=== PATIENT | female | born 1955 | race Caucasian/White ===

== ENCOUNTER 2016-04-08 21:44 | Inpatient (IN) | payer OTHER, MEDICARE ==
[~2016-04-08] VITALS: Ht 165.1 cm; Wt 106.6 kg
[~2016-04-08 21:44] MED LIST: AMOX/CLAV POT 81 TAB PO; AMOXICILLIN250 M3 PO; AUGMENTIN 875 M1 TAB PO; AUGMENTIN 875-1 EACH PO; AUGMENTIN 875875 MG PO; BACTRIM DS 8001 TAB PO; BACTRIM DS TAB1 EACH PO; BUPROPION HYDR300 MG PO; BUPROPION XL150 MG PO; CALCIUM + D 6001 TAB PO; DILAUDID4 M1 PO; FISH OIL CONC1000 M1 PO; FLUTICASONE PRO16 GM; GABAPENTIN300 M2 PO; GABAPENTIN300 MG PO; HYDROMORPHONE HC4 M1 PO; KEFLEX500 M1 PO; LAMICTAL 100MG100 MG PO; LAMICTAL100 M2 PO; LORAZEPAM0.5 MG PO; LYRICA150 M1 PO; LYRICA150 MG PO; LYRICA50 MG PO; MELATONIN5 M7 PO; MONTELUKAST SOD10 M1; MOTRIN 400 MG400 MG PO; MS CONTIN15 M1 PO; MULTIPLE VITAM1 EAC2 PO; NEURONTIN300 MG PO; OXACILLIN IV; OXYCODONE5 M1 PO; OXYCODONE5 MG PO; OXYCONTIN20 MG PO; PERCOCET 325 MG1 TA2 PO; PROBIOTIC1 EACH PO; RISPERIDONE 1 MG1 MG PO; RISPERIDONE1 M1 PO; RISPERIDONE2 MG PO; TRAMADOL HCL50 M1 PO; TYLENOL TAB 32325 MG PO; ZOSYN 4 GM/100100 ML IV
--- NOTE | 2016-04-08 21:54 | NUR ---
TRIAGE: PT TO ER C/C WORSENING PAIN AND FEVERS R/T ULCERS ON L FOOT. STATES DR TSE HAS BEEN OUT OF THE OFFICE SO HAS NOT BEEN ABLE TO SEE HIM IN 2 WEEKS. PT AFEBRILE AT TRIAGE. TAKES DILAUDID BID FOR PAIN.
--- NOTE | 2016-04-08 21:55 | NUR ---
Informed waiting has been performed.
--- NOTE | 2016-04-08 22:12 | ED UPPER/LOWER EXTREMITY COMPL ---
History of Present Illness General Chief Complaint: General Adult Stated Complaint: ULCER ON LEFT FOOT, FEVER Source: patient Exam Limitations: no limitations Vital Signs & Intake/Output Vital Signs & Intake/Output Vital Signs Date Time Temp Pulse Resp B/P Pulse O2 O2 Flow FiO2 Ox Delivery Rate 04/09 0157 101.1 110 20 100/62 94 Room Air 04/08 2152 99.6 125 20 112/76 98 Room Air ED Intake and Output 04/09 0000 04/08 1200 Intake Total Output Total Balance Patient 235 lb Weight Allergies Coded Allergies: No Known Drug Allergies (UNKNOWN 04/08/16) Reconcile Medications Bupropion HCl (Bupropion XL) 150 MG TAB.ER.24H 3 TAB PO DAILY MENTAL HEALTH ( Reported) Gabapentin 300 MG CAPSULE 1 CAP PO BID NERVE PAIN (Reported) Hydromorphone HCl 2 MG TABLET 1 TAB PO BID PRN PAIN (Reported) Lamotrigine (Lamictal) 100 MG TABLET 2 TAB PO AT BEDTIME MENTAL HEALTH ( Reported) Lamotrigine (Lamictal) 100 MG TABLET 1 TAB PO QAM MENTAL HEALTH (Reported) Multivitamin (Multiple Vitamins) 1 EACH TABLET 1 TAB PO DAILY SUPPLEMENT ( Reported) OMEGA-3 FATTY ACIDS (Fish Oil Concentrate) 1,000 MG CAPSULE 1 SGL PO DAILY SUPPLEMENT (Reported) Pregabalin (Lyrica) 150 MG CAPSULE 1 CAP PO BID NERVE PAIN (Reported) Risperidone 1 MG TABLET 1 TAB PO QPM SLEEPING (Reported) Triage Note: TRIAGE: PT TO ER C/C WORSENING PAIN AND FEVERS R/T ULCERS ON L FOOT. STATES DR TSE HAS BEEN OUT OF THE OFFICE SO HAS NOT BEEN ABLE TO SEE HIM IN 2 WEEKS. PT AFEBRILE AT TRIAGE. TAKES DILAUDID BID FOR PAIN. Triage Nurses Notes Reviewed? yes Onset: Gradual Duration: day(s):, getting worse Timing: recent history Severity: moderate Pain/Injury Location: Left: Foot. Modifying Factors: Worsens With: movement. Associated Symptoms: swelling, redness, discharge HPI: 60 yo woman, h/o chronic foot ulcer on left foot, h/o prior amputations on right foot, presents with redness, tenderness, swelling from left chronic toe ulcer. "For the past few days, it has gotten red, tender, and swollen.... I was on antibiotics early in March and have been going to the wound center since then..... I came in tonight because I got a fever to 101.4... also the discharge is getting worse... Normally, I just change the dressing once a day.... Now I change it twice a day for the past few days." INCREASED DISCHARGE TO CHANGE DRESSING TWICE A DAY FEVER 101.4 TODAY 4 DAYS OF REDNESS. Past History Travel History Traveled to [place] past 21 day No Medical History Any Pertinent Medical History? 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 Other Medical Hx: neuropathy crps/rsd RLE History of MRSA: No History of VRE: No History of CDIFF: No Surgical History Surgical History: appendectomy, colon resection (left hemicolectomy), hernia repair-umbilical, hysterectomy, laminectomy, LEFT PASQUALE COLECTOMY TRANSMETATARSAL CHOLECYSTECTOMY RT TMA Psychosocial History Who do you live with Patient/Self Services at Home Nursing, Physical Therapy What is your primary language Uzbek Tobacco Use: Never used ETOH Use: occasional use Illicit Drug Use: denies illicit drug use Family History Family History, If Any: FATHER, , Age 50-60; Cause: Myocardial infarction. FH: hypertension MOTHER, ; Cause: Spinal cord cancer. Angina FH: breast cancer Hx Contributory? No Review of Systems Review of Systems Constitutional: Reports: no symptoms. EENTM: Reports: no symptoms. Respiratory: Reports: no symptoms. Cardiovascular: Reports: no symptoms. Gastrointestinal/Abdominal: Reports: no symptoms. Genitourinary: Reports: no symptoms. Musculoskeletal: Reports: no symptoms. Skin: Reports: no symptoms. Neurological/Psychological: Reports: no symptoms. Hematologic/Endocrine: Reports: no symptoms. Immunological: Reports: no symptoms. All Other Systems: Reviewed and Negative Physical Exam Physical Exam General Appearance: well developed/nourished, mild distress Head: atraumatic Eyes: Bilateral: normal appearance. Ears, Nose, Throat: normal pharynx, normal ENT inspection, hearing grossly normal Neck: normal inspection, supple Cardiovascular/Respiratory: regular rate/rhythm Back: normal inspection Foot Left: ulcer on plantar aspect on 1st distal metatarsal.... redness, tenderness, no discharge to vigorous palpation. Skin: intact, normal color, warm/dry Lymphatic: no anterior cervical agnes Progress Differential Diagnosis: cellulitis vs osteomyelitis. Plan of Care: Orders Procedure Date/time Status Nothing by Mouth 04/09 B Active Patient Data 04/09 127 Active Saline Lock 04/09 126 Active Misc Message 04/09 126 Active ED Holding Orders 04/09 126 Active Vital Signs 04/09 126 Active Code Status 04/09 126 Active Admit to inpatient 04/09 123 Active BLOOD CULTURE 04/08 230 Active BLOOD CULTURE 04/08 224 Active Intake & Output 04/08 223 Active WESTERGREN SED RATE 04/08 221 Complete COMPREHENSIVE METABOLIC PANEL 04/08 2210 Complete CBC WITHOUT DIFFERENTIAL 04/08 2210 Complete Laboratory Tests 04/08/16 2342: Anion Gap 16, Estimated GFR > 60, BUN/Creatinine Ratio 30.0 H, Glucose 103 H, Calcium 9.3, Total Bilirubin 0.6, AST 17, ALT 35, Alkaline Phosphatase 120, Total Protein 6.4, Albumin 3.7, Globulin 2.7, Albumin/Globulin Ratio 1.4, CBC w Diff NO MAN DIFF REQ, RBC 4.43, MCV 87.7, MCH 29.3, RDW 13.6, MPV 8.8, Gran % 82.8 H, Lymphocytes % 13.7 L, Monocytes % 2.7, Eosinophils % 0.5, Basophils % 0.3, Absolute Granulocytes 13.1 H, Absolute Lymphocytes 2.2, Absolute Monocytes 0.4, Absolute Eosinophils 0.1, Absolute Basophils 0, PUBS MCHC 33.5, ESR Westergren 37 H Microbiology 04/09 0144 BLOOD: Blood Culture - RECD 04/08 2344 BLOOD: Blood Culture - RECD Diagnostic Imaging: Viewed by Me: Radiology Read. Discussed w/RAD: Radiology Read. Radiology Impression: left foot... no evidence for osteomyeltitis Comments: PATIENT: TONEY HDZ PRESENT AGE: 60 PATIENT ACCOUNT NO: [id number] : 53 LOCATION: [facility] ORDERING PHYSICIAN: ANDRES YEAEGR MD SERVICE DATE: 04/08/16 EXAM TYPE: RAD - XRY-FOOT COMPLETE, LEFT EXAMINATION: XR FOOT, LEFT CLINICAL INFORMATION: Open ulcer. COMPARISON: Left foot 11/29/2015. TECHNIQUE: AP, lateral, and oblique views of the left foot. FINDINGS: The previously noted chronic changes of the foot are stable. There is moderate dorsal soft tissue swelling. There is amputation of left second distal metatarsal. There is healed fracture fourth metatarsal periosteal reaction extending to the proximal end. Moderate hypertrophic spurring is seen along the first tarsometatarsal joint and along the proximal intertarsal joints. There is no acute abnormality. No bone destruction or abnormal periosteal reaction. No radiographic evidence for osteomyelitis. IMPRESSION: No radiographic evidence for osteomyelitis. DICTATED BY: JEFFREY BOWMAN MD DATE/TIME DICTATED:04/08/162306 CELL EFFICIENCY SUPERVISOR:CHIQUITA DATE/TIME TRANSCRIBED:04/08/162306 CONFIDENTIAL, DO NOT COPY WITHOUT APPROPRIATE AUTHORIZATION. <Electronically signed in Other Vendor System> SIGNED BY: JEFFREY BOWMAN MD 04/08/16 7343 Departure Departure Disposition: STILL A PATIENT Condition: Stable Clinical Impression Primary Impression: Cellulitis Referrals: UNKNOWN (PCP/Family) Departure Forms: Customer Survey General Discharge Information Comments discussed with hospitalist who will provide medical consultation. Admission Note Spoke With: JERRY TSE DPM Documentation of Exam: Documentation of any treatments & extenuating circumstances including Concerns Regarding Discharge (functional status, medication knowledge or non-compliance, living conditions, etc.) that warrant an admission rather than observation: pt with cellulitis, possible osteo, merits admission for iv abx, given that she had a trial of oral antibiotics without success. She is also high risk given her prior amputations.
--- NOTE | 2016-04-08 22:23 | NUR ---
DR YEAGER AT BEDSIDE FOR EVAL
[2016-04-08] MEDS ORDERED: HYDROMORPHONE HC2 M1 PO (22:32)
--- NOTE | 2016-04-08 22:43 | NUR ---
PT MEDICATED WITH DILAUDID 3MG PO
--- NOTE | 2016-04-08 23:13 | RADIOLOGY REPORT ---
EXAMINATION: XR FOOT, LEFT CLINICAL INFORMATION: Open ulcer. COMPARISON: Left foot 11/29/2015. TECHNIQUE: AP, lateral, and oblique views of the left foot. FINDINGS: The previously noted chronic changes of the foot are stable. There is moderate dorsal soft tissue swelling. There is amputation of left second distal metatarsal. There is healed fracture fourth metatarsal periosteal reaction extending to the proximal end. Moderate hypertrophic spurring is seen along the first tarsometatarsal joint and along the proximal intertarsal joints. There is no acute abnormality. No bone destruction or abnormal periosteal reaction. No radiographic evidence for osteomyelitis. IMPRESSION: No radiographic evidence for osteomyelitis.
--- NOTE | 2016-04-08 23:50 | NUR ---
PT VERY DIFFICULT STICK. LABS SENT TO LAB (1 PEDI SST, 2 LAVS) AND 1 SET OF BLOOD CULTURES AT THIS TIME.
[2016-04-09 00:04] LABS: ABSOLUTE BASOPHIL COUNT 0 /CUMM (0.0-0.2); ABSOLUTE EOSINOPHIL COUNT 0.1 /CUMM (0.0-0.7); ABSOLUTE GRANULOCYTE CT 13.1 /CUMM (1.4-6.5); ABSOLUTE LYMPH COUNT 2.2 /CUMM (1.2-3.4); ABSOLUTE MONOCYTE COUNT 0.4 /CUMM (0.10-0.60); BASOPHIL % 0.3 % (0.0-2.0); EOSINOPHIL % 0.5 % (0-5); GRANULOCYTE % 82.8 % (42.2-75.2); HEMATOCRIT 38.8 % (37-47); MEAN CORPUSCULAR HGB 29.3 PG (27.0-31.0); MEAN CORPUSCULAR HGB CONC 33.5 G/DL (33.0-37.0); MEAN CORPUSCULAR VOLUME 87.7 FL (81.0-99.0); MEAN PLATELET VOLUME 8.8 FL (7.4-10.4); PLATELET COUNT 258 /CUMM (130-400); RBC DISTRIBUTION WIDTH 13.6 % (11.5-14.5); RED BLOOD CELL CT 4.43 /CUMM (4.20-5.40); WHITE BLOOD CELL COUNT 15.8 /CUMM (4.8-10.8)
--- NOTE | 2016-04-09 01:28 | Cons- Medical ---
KAYLENE HUNTER 04/09/16 0128: General Information and HPI Consulting Request Date of Consult: 04/09/16 Requested By: JERRY TSE DPM Reason for Consult: Cellulitis/possible osteomyelitis Source of Information: patient, old records Exam Limitations: no limitations History of Present Illness: This is a 60-year-old lady with past medical history significant for Idiopathic neuropathy of both lower extremities with secondary ulcers of both feet s/p multiple debridements and amputation of the left second toe and transmetatarsal amputation right foot in 2014, borderline diabetes not on medication, irritable bowel syndrome, diverticulitis s/p left hemicolectomy, depression, borderline personality disorder, uterine cancer s/p hysterectomy. Patient presented to the emergency department due to fever that was measured at home 101.4 associated with chills and feeling nauseated. Patient reports redness and warmth of her nonhealing ulcer on the left fourth that was started 4 days ago, patient also reports yellowish whitish discharge from the same site that made her change the dressing twice daily and instead of every other days. Patient also reports watery diarrhea that she is attempting to her IBS. She denied any abdominal pain, vomiting or bloody bowel movement. Patient also reports right knee meniscal tears and she follow up with orthopedic and she received 3 steroid injection, patient stated that she was on wheelchair for 1 week and now she is using walker. Patient reported that she was here in the emergency department on March 2016 and she was prescribed amoxicillin and Actonel for the same lesion. Patient deny any difficulty breathing, heart racing, orthopnea, chest discomfort, headaches, abdominal pain, vomiting, constipation, bloody bowel movement, hematuria, dysuria. In ED patient has fever of 101.1, she is tachycardiac and borderline blood pressure of 100/62. Patient had leukocytosis of 15.8.X-ray of the left foot showed no evidence for osteomyelitis. Patient is status post or for the same lesion on December 2015, no osteomyelitis, no tissue culture was sent at that time, MRI of the same foot was done on October 2015 that did not show any evidence of osteomyelitis. Allergies/Medications Allergies: Coded Allergies: No Known Drug Allergies (UNKNOWN 04/08/16) Home Med List: Bupropion HCl (Bupropion XL) 150 MG TAB.ER.24H 3 TAB PO DAILY MENTAL HEALTH ( Reported) Gabapentin 300 MG CAPSULE 1 CAP PO BID NERVE PAIN (Reported) Hydromorphone HCl 2 MG TABLET 1 TAB PO BID PRN PAIN (Reported) Lamotrigine (Lamictal) 100 MG TABLET 2 TAB PO AT BEDTIME MENTAL HEALTH ( Reported) Lamotrigine (Lamictal) 100 MG TABLET 1 TAB PO QAM MENTAL HEALTH (Reported) Multivitamin (Multiple Vitamins) 1 EACH TABLET 1 TAB PO DAILY SUPPLEMENT ( Reported) OMEGA-3 FATTY ACIDS (Fish Oil Concentrate) 1,000 MG CAPSULE 1 SGL PO DAILY SUPPLEMENT (Reported) Pregabalin (Lyrica) 150 MG CAPSULE 1 CAP PO BID NERVE PAIN (Reported) Risperidone 1 MG TABLET 1 TAB PO QPM SLEEPING (Reported) Current Medications: Current Medications Sig/Esteban Start time Last Medication Dose Route Stop Time Status Admin Acetaminophen 0 .STK-MED ONE 04/09 0201 DC PO Ampicillin Sodium/ 3,000 MG Q6 04/09 0600 AC Sulbactam Sodium IV Sodium Chloride 100 ML Ampicillin Sodium/ 0 .STK-MED ONE 04/09 0152 DC Sulbactam Sodium .ROUTE Ampicillin Sodium/ 3,000 MG ONCE ONE 04/09 013 DC 04/09 Sulbactam Sodium IV 04/09 0159 0243 Sodium Chloride 100 ML Bupropion HCl 450 MG DAILY 04/09 1000 AC PO Dextrose/Sodium 1,000 ML Q13H 04/09 034 DC 04/09 Chloride IV 0513 Gabapentin 300 MG BID 04/09 1000 AC PO Hydromorphone HCl 2 MG BID PRN 04/09 0345 AC PO Hydromorphone HCl 0 .STK-MED ONE 04/08 2236 DC PO Hydromorphone HCl 2 MG ONCE ONE 04/08 223 DC 04/08 PO 04/08 2230 223 Lamotrigine 200 MG AT BEDTIME 04/09 2200 AC PO Lamotrigine 100 MG QAM 04/09 1000 AC PO Pregabalin 150 MG BID 04/09 1000 AC PO Risperidone 1 MG QPM 04/09 2200 AC PO Sodium Chloride 1,000 ML Q13H 04/09 0400 AC IV Sodium Chloride 1,000 ML BOLUS ONE 04/09 0345 DC 04/09 IV 04/09 0444 0527 Vancomycin HCl 1,000 MG ONCE ONE 04/09 0130 DC 04/09 Sodium Chloride 250 ML IV 04/09 022 0345 Review of Systems Review of Systems Constitutional: Reports: see HPI. Cardiovascular: Reports: see HPI. Respiratory: Reports: see HPI. GI: Reports: see HPI. Genitourinary: Reports: see HPI. 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 FH: hypertension MOTHER, ; Cause: Spinal cord cancer. Angina FH: breast cancer Psychosocial History Who Do You Live With? self Services at Home: Nursing, Physical Therapy Primary Language: St Helenian ETOH Use: occasional use Illicit Drug Use: denies illicit drug use Functional Ability ADLs Independent: dressing, eating, toileting, bathing. Ambulation: walker, heel touch only in right foot Exam & Diagnostic Data Last 24 Hrs of Vital Signs/I&O Vital Signs Date Time Temp Pulse Resp B/P Pulse O2 O2 Flow FiO2 Ox Delivery Rate 04/09 0157 101.1 110 20 100/62 94 Room Air 04/08 2152 99.6 125 20 112/76 98 Room Air Intake & Output 04/09 0800 04/09 0000 04/08 1600 Intake Total Output Total Balance Patient 235 lb Weight Physical Exam General Appearance: alert, awake, comfortable, obese Head: atraumatic, normal appearance Eyes: Bilateral: PERRL, EOMI. Neck: normal inspection, supple Respiratory: normal breath sounds, chest non-tender, no respiratory distress, quiet respiration, lungs clear Cardiovascular: regular rate/rhythm Peripheral Pulses: 2+ radial (R), 2+ radial (L) Gastrointestinal: normal bowel sounds, soft, non-tender, no organomegaly Extremities: RIGHT FOOT AMPUTATEDAT THE METATARSAL, LEFT FOOT ULCER NOTED AT THE FIRST METATARSAL, OPEN, NECROTIC EDGE, WHITISH DISCHARGE, WARM TO TOUCH, NONTENDER, NO SENSATION IN THE LEFT FOOT Last 24 Hrs of Labs/Matthew: Laboratory Tests 04/09/16 0441: Lactic Acid 3.0 H 04/08/16 2342: Anion Gap 16, Estimated GFR > 60, BUN/Creatinine Ratio 30.0 H, Glucose 103 H, Calcium 9.3, Total Bilirubin 0.6, AST 17, ALT 35, Alkaline Phosphatase 120, Total Protein 6.4, Albumin 3.7, Globulin 2.7, Albumin/Globulin Ratio 1.4, CBC w Diff NO MAN DIFF REQ, RBC 4.43, MCV 87.7, MCH 29.3, RDW 13.6, MPV 8.8, Gran % 82.8 H, Lymphocytes % 13.7 L, Monocytes % 2.7, Eosinophils % 0.5, Basophils % 0.3, Absolute Granulocytes 13.1 H, Absolute Lymphocytes 2.2, Absolute Monocytes 0.4, Absolute Eosinophils 0.1, Absolute Basophils 0, PUBS MCHC 33.5, ESR Westergren 37 H Diagnostic Data Other Results EXAMINATION: XR FOOT, LEFT CLINICAL INFORMATION: Open ulcer. COMPARISON: Left foot 11/29/2015. TECHNIQUE: AP, lateral, and oblique views of the left foot. FINDINGS: The previously noted chronic changes of the foot are stable. There is moderate dorsal soft tissue swelling. There is amputation of left second distal metatarsal. There is healed fracture fourth metatarsal periosteal reaction extending to the proximal end. Moderate hypertrophic spurring is seen along the first tarsometatarsal joint and along the proximal intertarsal joints. There is no acute abnormality. No bone destruction or abnormal periosteal reaction. No radiographic evidence for osteomyelitis. IMPRESSION: No radiographic evidence for osteomyelitis. Assessment/Plan Assessment/Plan This is a 60-year-old lady with past medical history significant for Idiopathic neuropathy of both lower extremities with secondary ulcers of both feet s/p multiple debridements and amputation of the left second toe and transmetatarsal amputation right foot in 2014, borderline diabetes not on medication, irritable bowel syndrome, diverticulitis s/p left hemicolectomy, depression, borderline personality disorder, uterine cancer s/p hysterectomy. Patient presented to the emergency department due to fever that was measured at home 101.4 associated with chills and feeling nauseated. Problem list: -Chronic Nonhealing ulcer in the left foot -Fever, chills due to nonhealing ulcer that could be most likely infected -Leukocytosis -Watery diarrhea -Lactic acidosis Plan: -We'll continue the patient IV Unasyn -We keep trending lactic acid -We'll start the patient on IV fluid, 1 bag bolus followed by normal saline at 75 mL per hour -Follow blood culture, C. difficile -Elevation of the leg -Repeat CBC in the morning -Continue home medication -Patient will be evaluated by Dr. Tse in the morning for possible MRI or taking the patient for OR, the patient kept nothing by mouth by the ED staff for that. -DVT prophylaxis ALL time -Full code Consult Acknowledgment - Thank you for your consult request. RODRIGO SONI 04/09/16 0751: Assessment/Plan Consult Acknowledgment - Thank you for your consult request. Attending MD Review Statement Attending Statement Attending MD Statement: examined this patient, discuss w/resident/PA/SUPERVISOR SOUND TECHNICIAN, agreed w/resident/PA/SUPERVISOR SOUND TECHNICIAN, reviewed EMR data (avail), reviewed images, amended to note Attending Assessment/Plan: CC: Fever and chills PMHx: Idiopathic peripheral neuropathy, prediabetes, hemicolectomy secondary to diverticulitis, right meniscal tear, mood disorder. Patient has chronic nonhealing ulcer on medial aspect of left foot, was under treatment with antibiotic since November on and off, MRI done at that time shows no evidence of osteomyelitis. For non-healing ulcer patient was kept on special boot after which she had fourth toe ulceration, mild abrasion on the lateral aspect of left foot. She came to ER on March 10 when she was treated with by mouth Bactrim and amoxicillin for 10 days without much relief. Patient started to feel chills and fever today. Along with the pus discharge since 4 days. Vitals: Tmax 101.1, tachycardia, RR, BP, O2 saturation within acceptable range. On exam: A O 3, no acute distress, lying comfortably, no lymphadenopathy, neck supple, CVS: S1-S2, RRR. RS: Clear air entry bilaterally present. Abdomen: Soft, NT, ND, bowel sounds present. Left lower extremity foot there is ulceration with minimum discharge on medial aspect of foot, fourth toe has a small scab surrounded by redness, no pus, there is mild skin breakdown on lateral aspect of foot. Redness in forefoot. Labs WBC 15.8 otherwise BMP, LFT in acceptable range. ESR is 37 unchanged from previous. X-ray foot:no evidence of osteomyelitis A and P Appreciate consult, we will follow along with you. #1 sepsis: Secondary to left foot chronic ulcer with secondary cellulitis, febrile, leukocytosis, tachycardia present. Lactate was not checked in ER please send lactate, continue gentle hydration, continue Unasyn, agree with your assessment for MRI versus surgery. No other source of infection identified for sepsis other than this on ROS. If surgery is to be planned, patient has low cardiac risk on history, obtain EKG #2 mood disorder: Continue bupropion, risperidone. #3 pain: Continue gabapentin, Lyrica, Dilaudid. #4 DVT prophylaxis with Lovenox if not contraindicated
--- NOTE | 2016-04-09 02:45 | NUR ---
UNASYN 3G STARTED IN LAC. IV INFILTRATED AND REMOVED. IV REESTABLISHED IN R HAND. UNASYN STARTED IN R HAND AT 100ML/HR
--- NOTE | 2016-04-09 03:09 | NUR ---
HOUSE STAFF AT BEDSIDE FOR EVAL
--- NOTE | 2016-04-09 04:43 | NUR ---
BLOOD DRAWN AND SENT TO LAB [facility]
--- NOTE | 2016-04-09 05:27 | NUR ---
CRITICAL TEST RESULTS [id number] TONEY HDZ 60 F TESTS AND RESULTS: LACTIC 3.0 Results received and read back by: ARI RUSSO Results received date and time: 04/09/16 0528 The following provider was notified of the results, and read the results back: DR HUNTER Notified date and time: 04/09/16 at 0522
--- NOTE | 2016-04-09 05:27 | NUR ---
NS BOLUS STARTED
--- NOTE | 2016-04-09 06:04 | NUR ---
NS STARTED AT 75ML/HR. PT MEDICATED WITH UNASYN 3G
--- NOTE | 2016-04-09 07:39 | NUR ---
REPEAT LACTIC AND CBC DRAWN AND SENT TO LAB.
[2016-04-09 07:49] LABS: ABSOLUTE BASOPHIL COUNT 0.1 /CUMM (0.0-0.2); ABSOLUTE EOSINOPHIL COUNT 0.1 /CUMM (0.0-0.7); ABSOLUTE GRANULOCYTE CT 8.1 /CUMM (1.4-6.5); ABSOLUTE LYMPH COUNT 2.5 /CUMM (1.2-3.4); ABSOLUTE MONOCYTE COUNT 0.5 /CUMM (0.10-0.60); BASOPHIL % 0.8 % (0.0-2.0); EOSINOPHIL % 0.7 % (0-5); GRANULOCYTE % 71.9 % (42.2-75.2); HEMATOCRIT 37.4 % (37-47); MEAN CORPUSCULAR HGB 29.9 PG (27.0-31.0); MEAN CORPUSCULAR HGB CONC 33.9 G/DL (33.0-37.0); MEAN CORPUSCULAR VOLUME 88.2 FL (81.0-99.0); MEAN PLATELET VOLUME 8.2 FL (7.4-10.4); PLATELET COUNT 242 /CUMM (130-400); RBC DISTRIBUTION WIDTH 13.8 % (11.5-14.5); RED BLOOD CELL CT 4.24 /CUMM (4.20-5.40); WHITE BLOOD CELL COUNT 11.2 /CUMM (4.8-10.8)
--- NOTE | 2016-04-09 08:52 | History & Physical Pre-Op ---
General Information and HPI Source of Information: patient, old records Exam Limitations: no limitations History of Present Illness: Wilma is a 58-year-old female well known to me with a long history of chronic and recurrent ulcerations associated with an idiopathic neuropathy, complicated by osteomyelitis requiring surgical resection and prolonged course of IV antibiotics. The patient presented to the ER complaining of fever and worsening pain to nonhealing ulcerations left foot. Apparently, the patient presented to the ER one month ago and was given by mouth antibiotics. Patient is been followed by me in the wound center and was noted on the last visit to be essentially baseline. Allergies/Medications Allergies: Coded Allergies: No Known Drug Allergies (UNKNOWN 04/08/16) Home Med list Bupropion HCl (Bupropion XL) 150 MG TAB.ER.24H 3 TAB PO DAILY MENTAL HEALTH ( Reported) Gabapentin 300 MG CAPSULE 1 CAP PO BID NERVE PAIN (Reported) Hydromorphone HCl 2 MG TABLET 1 TAB PO BID PRN PAIN (Reported) Lamotrigine (Lamictal) 100 MG TABLET 2 TAB PO AT BEDTIME MENTAL HEALTH ( Reported) Lamotrigine (Lamictal) 100 MG TABLET 1 TAB PO QAM MENTAL HEALTH (Reported) Multivitamin (Multiple Vitamins) 1 EACH TABLET 1 TAB PO DAILY SUPPLEMENT ( Reported) OMEGA-3 FATTY ACIDS (Fish Oil Concentrate) 1,000 MG CAPSULE 1 SGL PO DAILY SUPPLEMENT (Reported) Pregabalin (Lyrica) 150 MG CAPSULE 1 CAP PO BID NERVE PAIN (Reported) Risperidone 1 MG TABLET 1 TAB PO QPM SLEEPING (Reported) Past History Medical History Neurological: migraine, peripheral neuropathy EENT: NONE Cardiovascular: NONE Respiratory: NONE Gastrointestinal: diverticulitis, irritable bowel syndrome Hepatic: NONE Renal: NONE Musculoskeletal: OSTEOMYELITIS HX FEET COMPLEX REGIONAL PAIN SYN DROME Psychiatric: depression, BORDERLINE PERSONALITY DX Endocrine: DIABETES (BORDERLINE) Blood Disorders: NONE 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 FH: hypertension MOTHER, ; Cause: Spinal cord cancer. Angina FH: breast cancer Psychosocial History Who Do You Live With? self Services at Home Nursing, Physical Therapy Primary Language: Tongan ETOH Use: occasional use Illicit Drug Use: denies illicit drug use Functional Ability ADLs Independent: dressing, eating, toileting, bathing. Ambulation: walker, heel touch only in right foot Review of Systems Review of Systems: Unremarkable except for that noted in history of present illness Exam & Diagnostic Data Last 24 Hrs of Vital Signs/I&O Vital Signs Date Time Temp Pulse Resp B/P Pulse O2 O2 Flow FiO2 Ox Delivery Rate 04/09 0843 98.7 95 18 125/61 96 Room Air 04/09 0653 98.3 101 18 115/56 96 Room Air 04/09 0157 101.1 110 20 100/62 94 Room Air 04/08 2152 99.6 125 20 112/76 98 Room Air Intake & Output 04/09 1600 04/09 0800 04/09 0000 Intake Total Output Total Balance Patient 235 lb Weight Physical Exam: Grade 2 ulcerations noted with slough overlying mixed granular and fibrotic wound bed. No probing or undermining identified. No fluctuance or crepitus noted. Some erythema noted about the periphery of the lesions. Minimal serous drainage identified. X-rays negative for findings consistent with osteomyelitis. Diagnostic Data Other Results EXAMINATION: XR FOOT, LEFT CLINICAL INFORMATION: Open ulcer. COMPARISON: Left foot 11/29/2015. TECHNIQUE: AP, lateral, and oblique views of the left foot. FINDINGS: The previously noted chronic changes of the foot are stable. There is moderate dorsal soft tissue swelling. There is amputation of left second distal metatarsal. There is healed fracture fourth metatarsal periosteal reaction extending to the proximal end. Moderate hypertrophic spurring is seen along the first tarsometatarsal joint and along the proximal intertarsal joints. There is no acute abnormality. No bone destruction or abnormal periosteal reaction. No radiographic evidence for osteomyelitis. IMPRESSION: No radiographic evidence for osteomyelitis. Assessment/Plan As Ranked By This Provider Problem List: 1. Cellulitis Attending MD Review Statement Attending Statement Attending MD Statement: examined this patient
--- NOTE | 2016-04-09 10:08 | NUR ---
PT TKANE TO MRI VIA STRETCHER
--- NOTE | 2016-04-09 11:24 | NUR ---
PT MEDICATED PER EMAR AT THIS TIME.
--- NOTE | 2016-04-09 11:44 | MRI REPORT ---
EXAMINATION: MRI LEFT FOOT WITHOUT GADOLINIUM CLINICAL INFORMATION: Infected ulcers of left foot. Evaluate for osteomyelitis. COMPARISON: Radiographs of left foot, 10/08/2015 and 04/08/2016. MRI of the foot from 10/09/2015. TECHNIQUE: Noncontrast MR imaging of the left foot was performed using standard protocol on a high-field 1.5 Lore magnet. FINDINGS: Again noted is osteoarthritis of multiple joints, including the calcaneocuboid joint. At the Lisfranc joint, there is chronic loss of articular cartilage with subarticular sclerosis, subarticular cystic change, bone edema and osteophyte formation. Compared to 10/09/2015, periarticular bone edema has decreased within the bases of the second and fourth metatarsals. There is hallux valgus deformity and moderate osteoarthritis of the great toe metatarsophalangeal joint. Subarticular cyst is present within the medial aspect of the metatarsal head. The second toe is amputated through the region of the metatarsal head. There is an old, healed fracture of the distal metadiaphysis of the fourth metatarsal. The T1-weighted images show no evidence of osteomyelitis (i.e., there is no evidence of an inflammatory, infiltrative process within bone marrow of the phalanges or metatarsals). There is superficial ulceration plantar to the great toe metatarsophalangeal joint and soft tissue edema seen in this area without focal fluid collection. Also, there is loss of the fat pad plantar to the fifth metatarsophalangeal joint, probably due to adventitious bursitis in this region. There is mild edema within muscles of the foot and there is prominent subcutaneous tissue edema extending along the dorsal aspect of the foot. Chronic, severe atrophy and fatty replacement of muscles, consistent with denervation change. Within the subcutaneous tissues plantar to the aponeurosis at the level of the Lisfranc joint, there is chronic loss of subcutaneous fat signal intensity in an area that measures 1.1 x 2.2 x 2.9 cm, unchanged compared to 10/09/2015. This is likely due to chronic repetitive microtrauma and focal inflammation within the fat pad in this location. IMPRESSION: 1. Osteoarthritis of multiple joints, severe along the Lisfranc joint, probably reflecting presence of neuropathic arthropathy. 2. No evidence of osteomyelitis. 3. Severe atrophy and fatty replacement of muscles of the foot, likely secondary to chronic denervation. For additional findings, see report above.
--- NOTE | 2016-04-09 12:14 | NUR ---
IV UNASYN INFUSING PER ORDER AT THIS TIME.
--- NOTE | 2016-04-09 12:57 | NUR ---
REPEAT LACTIC DRAWN AND SENT TO LAB.
--- NOTE | 2016-04-09 13:22 | NUR ---
PT RESTING ON STRETCHER AT THIS TIME, OFFERS NO COMPLAINTS AT THIS TIME.
--- NOTE | 2016-04-09 15:31 | NUR ---
DR TSE AT BEDSIDE
--- NOTE | 2016-04-09 16:05 | PN- Att Addend ---
Attending Addendum Attending Brief Note Patient seen and examined, Feels okay currently. Denies any aches or pains. Patient is admitted with the left foot nonhealing ulcer. Vital Signs Date Time Temp Pulse Resp B/P Pulse O2 O2 Flow FiO2 Ox Delivery Rate 04/09 1553 97.5 79 16 136/86 99 Room Air 04/09 0843 98.7 95 18 125/61 96 Room Air 04/09 0653 98.3 101 18 115/56 96 Room Air 04/09 0157 101.1 110 20 100/62 94 Room Air 04/08 2152 99.6 125 20 112/76 98 Room Air on exam; aox3, nad. cv; s1,s2, rrr. resp; clear abd; soft, nt, bs+. ext; no edema. skin; two ulcers on left foot. Laboratory Tests 04/09 04/09 0738 0441 Chemistry Lactic Acid (0.7 - 2.1 mmol/L) 1.1 3.0 H Hematology CBC w Diff NO MAN DIFF REQ WBC (4.8 - 10.8 /CUMM) 11.2 H RBC (4.20 - 5.40 /CUMM) 4.24 Hgb (12.0 - 16.0 G/DL) 12.7 Hct (37 - 47 %) 37.4 MCV (81.0 - 99.0 FL) 88.2 MCH (27.0 - 31.0 PG) 29.9 RDW (11.5 - 14.5 %) 13.8 Plt Count (130 - 400 /CUMM) 242 MPV (7.4 - 10.4 FL) 8.2 Gran % (42.2 - 75.2 %) 71.9 Lymphocytes % (20.5 - 51.1 %) 22.4 Monocytes % (1.7 - 9.3 %) 4.2 Eosinophils % (0 - 5 %) 0.7 Basophils % (0.0 - 2.0 %) 0.8 Absolute Granulocytes (1.4 - 6.5 /CUMM) 8.1 H Absolute Lymphocytes (1.2 - 3.4 /CUMM) 2.5 Absolute Monocytes (0.10 - 0.60 /CUMM) 0.5 Absolute Eosinophils (0.0 - 0.7 /CUMM) 0.1 Absolute Basophils (0.0 - 0.2 /CUMM) 0.1 PUBS MCHC (33.0 - 37.0 G/DL) 33.9 04/08 2342 Chemistry Sodium (137 - 145 mmol/L) 141 Potassium (3.5 - 5.1 mmol/L) 4.1 Chloride (98 - 107 mmol/L) 104 Carbon Dioxide (22 - 30 mmol/L) 21 L Anion Gap (5 - 16) 16 BUN (7 - 17 mg/dL) 21 H Creatinine (0.5 - 1.0 mg/dL) 0.7 Estimated GFR (>60 ml/min) > 60 BUN/Creatinine Ratio (7 - 25 %) 30.0 H Glucose (65 - 99 mg/dL) 103 H Calcium (8.4 - 10.2 mg/dL) 9.3 Total Bilirubin (0.2 - 1.3 mg/dL) 0.6 AST (14 - 36 U/L) 17 ALT (9 - 52 U/L) 35 Alkaline Phosphatase (<127 U/L) 120 Total Protein (6.3 - 8.2 g/dL) 6.4 Albumin (3.5 - 5.0 g/dL) 3.7 Globulin (1.9 - 4.2 gm/dL) 2.7 Albumin/Globulin Ratio (1.1 - 2.2 %) 1.4 Hematology CBC w Diff NO MAN DIFF REQ WBC (4.8 - 10.8 /CUMM) 15.8 H RBC (4.20 - 5.40 /CUMM) 4.43 Hgb (12.0 - 16.0 G/DL) 13.0 Hct (37 - 47 %) 38.8 MCV (81.0 - 99.0 FL) 87.7 MCH (27.0 - 31.0 PG) 29.3 RDW (11.5 - 14.5 %) 13.6 Plt Count (130 - 400 /CUMM) 258 MPV (7.4 - 10.4 FL) 8.8 Gran % (42.2 - 75.2 %) 82.8 H Lymphocytes % (20.5 - 51.1 %) 13.7 L Monocytes % (1.7 - 9.3 %) 2.7 Eosinophils % (0 - 5 %) 0.5 Basophils % (0.0 - 2.0 %) 0.3 Absolute Granulocytes (1.4 - 6.5 /CUMM) 13.1 H Absolute Lymphocytes (1.2 - 3.4 /CUMM) 2.2 Absolute Monocytes (0.10 - 0.60 /CUMM) 0.4 Absolute Eosinophils (0.0 - 0.7 /CUMM) 0.1 Absolute Basophils (0.0 - 0.2 /CUMM) 0 PUBS MCHC (33.0 - 37.0 G/DL) 33.5 ESR Westergren (0 - 20 MM) 37 H Assessment and recommendations. Idiopathic neuropathy of both lower extremities with secondary ulcers of both feet s/p multiple debridements and amputation of the left second toe and transmetatarsal amputation right foot in 2015, borderline diabetes not on medication, irritable bowel syndrome, diverticulitis s/p left hemicolectomy, depression, borderline personality disorder, uterine cancer s/p hysterectomy, a dmitted with nonhealing ulcers on the left foot. MRI negative for osteomyelitis. Patient has been started on antibiotics per podiatry. Continue the patient on her home psych medications. I discussed with Dr. Patel, he does not plan for any surgeries. DVT prophylaxis: Please start the patient on heparin subcutaneous. Thank you very much for allowing us to participate in care of this patient, will follow along with you.
--- NOTE | 2016-04-09 16:49 | NUR ---
PT RESTING ON STRETCHER, ATE 100% OF HEART HEALTHY TRAY. WILL CTM. OFFERS NO COMPLAINTS.
--- NOTE | 2016-04-09 17:54 | NUR ---
PT WILL GO TO ROOM 224-2
--- NOTE | 2016-04-09 18:02 | NUR ---
REPORT GIVEN TO FLOOR. DISTRIBUTION CALLED FOR TRANSPORT.
--- NOTE | 2016-04-09 18:07 | NUR ---
IV UNSAYN INFUSING PER ORDER AT THIS TIME.
--- NOTE | 2016-04-09 18:25 | NUR ---
PTS IV NOTED TO BE INFILTRATED. IV DISCONTINUED AND NEW IV PLACED TO LAC #22 AT THIS TIME. AWAITING DISTRIBUTION.
--- NOTE | 2016-04-09 18:32 | NUR ---
TRANSPORT HERE FOR PT
[2016-04-09 18:45] VITALS: BP 112/80
--- NOTE | 2016-04-09 18:45 | NUR ---
ARRIVED TO FLOOR FROM ED. A & O X 3. AMBULATED FROM STRETCHER TO BED. HX OF R TMA AND LEFT 2ND TOE AMPUTATION. PRESENTS TO ED WITH OPEN AREA UNDERNEATH THE LEFT GREAT TOE. SMALL OPEN AREA SURROUNDED BY REDDENED CALLUSED AREA. DRY DSG APPLIED. PER PT, WOUND HAS BEEN DRAINING HEAVY AMOUNTS OF YELLOW DRAINAGE REQUIRING BID DSG CHANGES. LEFT 4TH TOE IS ALSO DISCOLORED AND EDEMATOUS. IV ABX INFUSING. ORIENTED TO CALL SYSTEM. WILL MONITOR.
[2016-04-09 23:04] VITALS: BP 122/90
[2016-04-10 06:00] VITALS: BP 118/64
--- NOTE | 2016-04-10 07:52 | PN- Medicine Consult ---
RAPHAEL EATON 04/10/16 0752: Assessment/Plan Assessment/Plan Assessment: Patient is a 60-year-old lady with past medical history significant for Idiopathic neuropathy of b/l lower extremities with secondary ulcers of both feet s/p multiple debridements and amputation of the left second toe and transmetatarsal amputation right foot in 2014, borderline diabetes not on medication, irritable bowel syndrome, diverticulitis s/p left hemicolectomy, depression, borderline personality disorder, uterine cancer s/p hysterectomy. Patient presented to the emergency department due to fever that was measured at home 101.4 associated with chills and feeling nauseated. Patient reports redness and warmth of her nonhealing ulcer on the left fourth that was started 4 days ago, patient also reports yellowish whitish discharge from the same site that made her change the dressing twice daily and instead of every other days. Patient reported that she was here in the emergency department on March 2016 and she was prescribed amoxicillin for the same lesion. Patient deny any difficulty breathing, heart racing, orthopnea, chest discomfort, headaches, abdominal pain, vomiting, constipation, bloody bowel movement, hematuria, dysuria. Plan: Recent MRI does not show any evidence of osteomyelitis, Can continue on unasyn for now or switch to oral. She has been afebrile, her WBC count decreased on 04/09/15 -Patient is on diet, no plan for surgery right now by Dr. Alegria -For mood disorder can continue her home medications including bupropion and risperidone. -Pain adequately controlle don current regimen - DVT ppx SC heprin Subjective Subjective: Patient seen and examined. No new complaints. Will be changed to PO antibiotics and probably discharged today. Review of Systems Constitutional: Reports: see HPI. Objective Last 24 Hrs of Vital Signs/I&O Vital Signs Date Time Temp Pulse Resp B/P Pulse O2 O2 Flow FiO2 Ox Delivery Rate 04/10 0600 97.9 93 18 118/64 95 Room Air 04/09 2304 97.9 82 20 122/90 96 Room Air 04/09 1845 Room Air 04/09 1845 97.6 89 18 112/80 96 Room Air 04/09 1803 97.5 99 18 114/67 97 Room Air 04/09 1553 97.5 79 16 136/86 99 Room Air 04/09 0843 98.7 95 18 125/61 96 Room Air Intake & Output 04/10 0800 04/10 0000 04/09 1600 Intake Total 780 Output Total Balance 780 Intake, IV 300 Intake, Oral 480 Patient 106.594 kg Weight Physical Exam General Appearance: well developed/nourished, no apparent distress, alert, awake Head: atraumatic Neck: normal inspection, supple Cardiovascular: regular rate/rhythm Respiratory: normal breath sounds, chest non-tender Abdomen: soft, non-tender, no organomegaly Current Medications: as per medication order list Results Last 24 Hrs Lab/Matthew Results: as per medication order list FLAQUITA KENDRICK MDESHA 04/10/16 1200: Attending MD Review Statement Attending Sign Off Attending Cosign Statement: I have: examined this patient, reviewed [employer] EMR data, personally reviewd images, discussd w/resident/PA/BUMP GRADER OPERATOR, discussed mgmt plan w/codi, discussed mgmt plan w/pt, agreed w/resident/PA/BUMP GRADER OPERATOR, amended to note. Other Findings: Patient seen and examined, feels okay but claims that her left third toe is very painful and now more swollen. Patient has been getting IV antibiotics per Dr. Patel. Vital Signs Date Time Temp Pulse Resp B/P Pulse O2 O2 Flow FiO2 Ox Delivery Rate 04/10 0600 97.9 93 18 118/64 95 Room Air 04/09 2304 97.9 82 20 122/90 96 Room Air 04/09 1845 Room Air 04/09 1845 97.6 89 18 112/80 96 Room Air 04/09 1803 97.5 99 18 114/67 97 Room Air 04/09 1553 97.5 79 16 136/86 99 Room Air on exam; aox3, nad. cv; s1,s2, rrr. resp; clear abd; soft, nt, bs+ ext; no edema. skin; + open area with sacbing on left third toe. no labs. Assessment and recommendations. 60 y/o F with pmh sig for Idiopathic neuropathy of both lower extremities with secondary ulcers of both feet s/p multiple debridements and amputation of the left second toe and transmetatarsal amputation right foot in 2014, borderline diabetes not on medication, irritable bowel syndrome, diverticulitis s/p left hemicolectomy, depression, borderline personality disorder, uterine cancer s/p hysterectomy, admitted with nonhealing ulcers on the left foot. Per Dr. Patel, patient was started on antibiotics and no surgery was planned. We resumed all of her home medications. I will leave it up to Dr. Patel if he plans any surgical procedures. Otherwise no other active medical issues at this time. Continue home medications. For DVT prophylaxis patient is on heparin subcutaneous.
[2016-04-10] MEDS ORDERED: AUGMENTIN 875-1 EACH PO (12:03)
--- NOTE | 2016-04-10 12:08 | Surgical Discharge Summary ---
Visit Information Visit Dates Admission Date: 04/09/16 Discharge Date: 04/10/16 History of Present Illness Chief Complaint: This cannot go is a 60-year-old female with idiopathic peripheral neuropathy who presents with left foot ulcerations and associated cellulitis. The patient is well known to me for chronic and recurrent lower extremity ulcerations requiring courses of both. Antibiotics and hospitalization for intravenous antibiotics. 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 FH: hypertension MOTHER, ; Cause: Spinal cord cancer. Angina FH: breast cancer Psychosocial History Where Do You Live? Home Who Do You Live With? Patient/Self What is Your Primary Language? Emirati ETOH Use: occasional use Review of Systems: Unremarkable except for that noted in history of present illness Hospital Course Course Attending Physician: JERRY TSE DPM Primary Care Physician: UNKNOWN Hospital Course: Patient defervesced soon after admission and remained stable for the duration of her hospital stay. Allergies: Coded Allergies: No Known Drug Allergies (UNKNOWN 04/08/16) Disposition Summary Disposition Principal Diagnosis: Left lower extremity cellulitis Additional Diagnosis: Chronic nonhealing ulcerations left lower extremity Discharge Disposition: home or self care Discharge Instructions General Discharge Information Code Status: Full Code Patient's Diet: Regular Patient's Activity: As tolerated Follow-Up Instructions/Appts: Patient follow-up with Dr. Tse in the wound center within 1 week of discharge. Medications at Discharge Discharge Medications: Continue taking these medications: OMEGA-3 FATTY ACIDS (Fish Oil Concentrate) 1,000 MG CAPSULE 1 SGL ORAL DAILY Comments: PER PT Multivitamin (Multiple Vitamins) 1 EACH TABLET 1 Tablet ORAL DAILY Comments: PER PT Bupropion HCl (Bupropion XL) 150 MG TAB.ER.24H 3 Tablet ORAL DAILY Comments: Last Taken: 04/10/16 Time: 8AM Pregabalin (Lyrica) 150 MG CAPSULE 1 Capsule ORAL TWICE DAILY Comments: Last Taken: 12/05 Time: 944 Lamotrigine (Lamictal) 100 MG TABLET 2 Tablet ORAL AT BEDTIME Comments: Last Taken: 12/04 Time: 2100 Lamotrigine (Lamictal) 100 MG TABLET 1 Tablet ORAL Every Morning Comments: Last Taken: 12/05 Time: 944 Gabapentin (Gabapentin) 300 MG CAPSULE 1 Capsule ORAL TWICE DAILY Qty = 90 Risperidone (Risperidone) 1 MG TABLET 1 Tablet ORAL Every night Qty = 90 Hydromorphone HCl (Hydromorphone HCl) 2 MG TABLET 1 Tablet ORAL TWICE DAILY as needed for PAIN Comments: PER PT Start taking the following new medications: Amoxicillin/Potassium Clav (Augmentin 875-125 Tablet) 875 MG-125 MG TABLET 1 Tablet ORAL TWICE DAILY Qty = 14 No Refills Attending MD Review Statement Attending Statement Attending MD Statement: examined this patient
[2016-04-10 13:51] VITALS: BP 112/60
[2016-04-23] MEDS ORDERED: ATIVAN0.5 M1 PO (00:14)
== END 2016-04-10 17:50 | DRG 603 ==
LOC: ERH 21:44 → ERHI 04-09 01:24 → 2NA 04-09 01:24
PROVIDERS: Internal Medicine Hematology & Oncology; Pediatrics; ADMIT Podiatrist Foot & Ankle Surgery
DX: L03.116 Cellulitis of left lower limb (principal); E87.2 Acidosis; L97.829 Non-pressure chronic ulcer of other part of left lower leg with unspecified severity; G60.9 Hereditary and idiopathic neuropathy, unspecified; Z85.42 Personal history of malignant neoplasm of other parts of uterus; F60.3 Borderline personality disorder
CPT/HCPCS: 2NASP; 75657; 73630-LT; 87040; 93005; 93010; J1644; J3370; J7040

== ENCOUNTER 2016-04-22 22:16 | Emergency (ER) | payer OTHER, MEDICARE ==
[~2016-04-22] VITALS: Ht 165.1 cm; Wt 104.3 kg
[~2016-04-22 22:16] MED LIST changes: +HYDROMORPHONE HC2 M1 PO
[2016-04-22 22:23] VITALS: BP 130/90
--- NOTE | 2016-04-22 23:06 | ED UPPER/LOWER EXTREMITY COMPL ---
History of Present Illness General Chief Complaint: Foot or Ankle Injury Stated Complaint: PT IS HAVING SPASMS IN THE RG FOOT Source: patient Exam Limitations: no limitations Vital Signs & Intake/Output Vital Signs & Intake/Output Vital Signs Date Time Temp Pulse Resp B/P Pulse O2 O2 Flow FiO2 Ox Delivery Rate 04/223 97.8 94 20 130/90 96 Room Air ED Intake and Output 04/23 0000 04/22 1200 Intake Total 0 Output Total Balance 0 Intake, Oral 0 Patient 230 lb Weight Allergies Coded Allergies: No Known Drug Allergies (UNKNOWN 04/08/16) Reconcile Medications Amoxicillin/Potassium Clav (Augmentin 875-125 Tablet) 875 MG-125 MG TABLET 1 TAB PO BID ANTIBIOTIC, INFECTION Bupropion HCl (Bupropion XL) 150 MG TAB.ER.24H 3 TAB PO DAILY MENTAL HEALTH ( Reported) Gabapentin 300 MG CAPSULE 1 CAP PO BID NERVE PAIN (Reported) Hydromorphone HCl 2 MG TABLET 1 TAB PO BID PRN PAIN (Reported) Lamotrigine (Lamictal) 100 MG TABLET 2 TAB PO AT BEDTIME MENTAL HEALTH ( Reported) Lamotrigine (Lamictal) 100 MG TABLET 1 TAB PO QAM MENTAL HEALTH (Reported) Lorazepam (Ativan) 0.5 MG TABLET 1 TAB PO BIDP PRN MUSCLE SPASM Multivitamin (Multiple Vitamins) 1 EACH TABLET 1 TAB PO DAILY SUPPLEMENT ( Reported) OMEGA-3 FATTY ACIDS (Fish Oil Concentrate) 1,000 MG CAPSULE 1 SGL PO DAILY SUPPLEMENT (Reported) Pregabalin (Lyrica) 150 MG CAPSULE 1 CAP PO BID NERVE PAIN (Reported) Risperidone 1 MG TABLET 1 TAB PO QPM SLEEPING (Reported) Triage Note: RECEIVED 60 YO FEMALE C/O SEVERE SPASM OF RIGHT FOOT, STARTED 7 PM TONITE. PT IS UNABLE TO MOVE IT. PT HAS A HX OF RIGHT TOES AMPUTATION AND SEVERED ACHILLES TENDON. Triage Nurses Notes Reviewed? yes Onset: Abrupt Duration: constant Timing: recent history Severity: severe Severity Numbers: 8 HPI: Patient is a 60-year-old female with a past medical history of chronic pain currently in pain management, neuropathy, osteomyelitis with right foot transtarsal amputation who presents emergency him seen that for 3 days patient has noticed a intermittent onset of right foot and ankle muscle spasms in which she was evaluated by seed cutter Dr. Patel on Wednesday which no medications were administered. Patient states that today the muscle spasm have been persistent and which is patient is unable to move her ankle and walk. Patient denies any fevers chills erythema discharge. Patient has chronic right leg paresthesia and decreased dermatome sensation. (FERNANDO GALAVIZ) Past History Travel History Traveled to [place] past 21 day No Medical History Any Pertinent Medical History? 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 FH: hypertension MOTHER, ; Cause: Spinal cord cancer. Angina FH: breast cancer Hx Contributory? No (FERNANDO GALAVIZ) Review of Systems Review of Systems Constitutional: Reports: no symptoms. EENTM: Reports: no symptoms. Respiratory: Reports: no symptoms. Cardiovascular: Reports: no symptoms. Gastrointestinal/Abdominal: Reports: no symptoms. Genitourinary: Reports: no symptoms. Musculoskeletal: Reports: see HPI. Skin: Reports: no symptoms. Neurological/Psychological: Reports: see HPI. Hematologic/Endocrine: Reports: no symptoms. Immunological: Reports: no symptoms. All Other Systems: Reviewed and Negative (FERNANDO GALAVIZ) Physical Exam Physical Exam General Appearance: no apparent distress, alert, comfortable Neurologic/Tendon: normal motor functions, responds to pain, no evidence tendon injury, no pulse deficit Skin: intact, normal color, warm/dry Comments: Well-developed well-nourished no apparent distress. HEENT: Atraumatic, extraocular motion intact Neck: Supple, no lymphadenopathy Back: Nontender Respiratory: No respiratory distress Extremities: Right knee nontender normal inspection Right foot noted transtarsal amputation Generalized point tenderness noted, no erythema no warmth no discharge Pedal pulse +2 Neuro: Alert and oriented x3 Psych: Mood affect normal, normal memory normal judgment. (FERNANDO GALAVIZ) Progress Differential Diagnosis: arterial insufficiency, compartment syndrome, contusion, dislocation, DVT, fracture, gout, septic arthritis, sprain, tendon injury Plan of Care: Patient this time shows no concerns of infection Patient does state that she has muscle spasm however on exam there is no exam findings of spasming. Patient was given IM Ativan for her symptoms. Patient is able tolerate by mouth has no change in dietary habits. No suspicion of osteomyelitis or cellulitis at this time. Patient denies any systemic symptoms 04/23/2016 12:16:22 AM reevaluation of patient after Ativan was administered patient states that she had significant improvement of her muscle spasms and pain and had significant improvement of her range of motion in her right ankle. Patient was strongly advised follow-up with seed cutter this week as to discussed in discharge instructions. (FERNANDO GALAVIZ) Departure Departure Disposition: HOME OR SELF CARE Condition: Stable Clinical Impression Primary Impression: Muscle spasm of right leg Referrals: RJ PALOMINO MD (PCP/Family) Additional Instructions: Begin the prescription of Ativan as directed for your symptoms. If symptoms worsen return to the emergency room. Follow-up with your seed cutter in 2 days if symptoms still persist Begin drinking plenty of water for hydration Departure Forms: Customer Survey General Discharge Information Prescriptions: Current Visit Scripts Lorazepam (Ativan) 1 TAB PO BIDP PRN MUSCLE SPASM #6 TAB (FERNANDO GALAVIZ) PA/POWER TRANSFORMER REPAIRER Co-Sign Statement Statement: ED Attending supervision documentation- [] I saw and evaluated the patient. I have also reviewed all the pertinent lab results and diagnostic results. I agree with the findings and the plan of care as documented in the PA's/POWER TRANSFORMER REPAIRER's documentation. [x] I have reviewed the ED Record and agree with the PA's/POWER TRANSFORMER REPAIRER's documentation. [] Additions or exceptions (if any) to the PAs/POWER TRANSFORMER REPAIRER's note and plan are summarized below: [] (SHOBHA ABEBE,ANDRES Campoverde)
[2016-04-23] MEDS ORDERED: ATIVAN0.5 M1 PO (00:14)
== END 2016-04-22 23:44 ==
LOC: ERH 22:16
DX: M62.838 Other muscle spasm (principal)
CPT/HCPCS: 96372

== ENCOUNTER 2016-05-27 21:12 | Emergency (ER) | payer OTHER, MEDICARE ==
[~2016-05-27] VITALS: Ht 165.1 cm; Wt 108.9 kg
[~2016-05-27 21:12] MED LIST changes: +ATIVAN0.5 M1 PO
[2016-05-27 21:32] VITALS: BP 134/93
[2016-05-27] MEDS ORDERED: CRESTOR10 M1 PO (23:06)
--- NOTE | 2016-05-27 23:39 | ED UPPER/LOWER EXTREMITY COMPL ---
History of Present Illness General Chief Complaint: Skin Rash/ Abcess Stated Complaint: "THINK I HAVE A ABSCESS ON BOTTOM OF R FOOT"PER PT Source: patient Exam Limitations: no limitations Vital Signs & Intake/Output Vital Signs & Intake/Output Vital Signs Date Time Temp Pulse Resp B/P Pulse O2 O2 Flow FiO2 Ox Delivery Rate 05/28 0026 100 Room Air 05/27 2132 98.0 96 20 134/93 94 Room Air ED Intake and Output 05/28 0000 05/27 1200 Intake Total Output Total Balance Patient 240 lb Weight Allergies Coded Allergies: No Known Drug Allergies (UNKNOWN 05/27/16) Reconcile Medications Amoxicillin/Potassium Clav (Augmentin 875-125 Tablet) 875 MG-125 MG TABLET 1 TAB PO BID ANTIBIOTIC, INFECTION Bupropion HCl (Bupropion XL) 150 MG TAB.ER.24H 3 TAB PO DAILY MENTAL HEALTH ( Reported) Cephalexin (Keflex) 500 MG CAPSULE 1 CAP PO 4 TIMES/DAY CELLULITIS Gabapentin 300 MG CAPSULE 1 CAP PO BID NERVE PAIN (Reported) Hydromorphone HCl 2 MG TABLET 1 TAB PO BID PRN PAIN (Reported) Lamotrigine (Lamictal) 100 MG TABLET 2 TAB PO AT BEDTIME MENTAL HEALTH ( Reported) Lamotrigine (Lamictal) 100 MG TABLET 1 TAB PO QAM MENTAL HEALTH (Reported) Lorazepam (Ativan) 0.5 MG TABLET 1 TAB PO BIDP PRN MUSCLE SPASM Multivitamin (Multiple Vitamins) 1 EACH TABLET 1 TAB PO DAILY SUPPLEMENT ( Reported) OMEGA-3 FATTY ACIDS (Fish Oil Concentrate) 1,000 MG CAPSULE 1 SGL PO DAILY SUPPLEMENT (Reported) Pregabalin (Lyrica) 150 MG CAPSULE 1 CAP PO BID NERVE PAIN (Reported) Risperidone 1 MG TABLET 1 TAB PO QPM SLEEPING (Reported) Rosuvastatin Calcium (Crestor) 10 MG TABLET 10 MG COLESTEROL (Reported) Sulfamethoxazole/Trimethoprim (Bactrim Ds Tablet) 800 MG-160 MG TABLET 1 TAB PO BID CELLULITIS Triage Note: TRIAGE: PT TO ER C/C ?ABSCESS TO BOTTOM OF RT FOOT. NOTICED IT EARLIER THIS EVENING, HAS BEEN TRYING TO ELEVATE IT WITH NO IMPROVEMENT NOTED. Triage Nurses Notes Reviewed? yes Onset: Gradual Duration: day(s): Timing: single episode today Severity: mild Pain/Injury Location: Right: Foot. Method of Injury: unknown Modifying Factors: Worsens With: other (worse with walking). Associated Symptoms: "it feels tender." HPI: 21-year-old woman with a history of arterial insufficiency, status post metatarsal amputation of the right foot last year, presents with mild tenderness of the right foot. She notes that it also looks slightly swollen. It does not appear red. There is no streaking. She is able to ambulate, but with mild discomfort. She has no fever chills joint pain. She does not recall any trauma. Past History Travel History Traveled to [place] past 21 day No Medical History Any Pertinent Medical History? 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 FH: hypertension MOTHER, ; Cause: Spinal cord cancer. Angina FH: breast cancer Hx Contributory? No Review of Systems Review of Systems Constitutional: Reports: no symptoms. EENTM: Reports: no symptoms. Respiratory: Reports: no symptoms. Cardiovascular: Reports: no symptoms. Gastrointestinal/Abdominal: Reports: no symptoms. Genitourinary: Reports: no symptoms. Musculoskeletal: Reports: no symptoms. Skin: Reports: no symptoms. Neurological/Psychological: Reports: no symptoms. Hematologic/Endocrine: Reports: no symptoms. Immunological: Reports: no symptoms. All Other Systems: Reviewed and Negative Physical Exam Physical Exam General Appearance: well developed/nourished, mild distress Head: atraumatic Eyes: Bilateral: normal appearance. Ears, Nose, Throat: normal pharynx, normal ENT inspection, hearing grossly normal Neck: normal inspection, supple Cardiovascular/Respiratory: regular rate/rhythm Back: normal inspection Foot Right: ight foot with minimal swelling and tenderness at the site of her prior metatarsal amputation. There is no redness or streaking. clinically there does not appear to be an abscess. Skin: intact, normal color, warm/dry Lymphatic: no anterior cervical agnes Comments: Bedside ultrasound by the ED physician reveals no significant abscess in the right foot. Progress Differential Diagnosis: cellulitis versus abscess versus other. Plan of Care: Discussed at great length with the patient. Because she has no fever and no significant abscess and there is no erythema, I believe that she has a mild cellulitis that we have caught in the early stages. Because of her arterial insufficiency and repeated infections, I will treat her with Bactrim and Keflex. She will follow-up with Dr. Patel, her install technician, tomorrow. Departure Departure Disposition: HOME OR SELF CARE Condition: Stable Clinical Impression Primary Impression: Cellulitis Referrals: RJ PALOMINO MD (PCP/Family) Departure Forms: Customer Survey General Discharge Information Prescriptions: Current Visit Scripts Sulfamethoxazole/Trimethoprim (Bactrim Ds Tablet) 1 TAB PO BID #20 TAB Cephalexin (Keflex) 1 CAP PO 4 TIMES/DAY #40 CAP
[2016-05-28] MEDS ORDERED: KEFLEX500 M1 PO (00:08)
[2016-05-28] MEDS ORDERED: BACTRIM DS TAB1 EACH PO (00:08)
== END 2016-05-28 00:28 ==
LOC: ERH 21:12
DX: L03.115 Cellulitis of right lower limb (principal)

== ENCOUNTER 2016-06-09 18:13 | Emergency (ER) | payer OTHER, MEDICARE ==
[~2016-06-09] VITALS: Ht 165.1 cm; Wt 113.4 kg
[~2016-06-09 18:13] MED LIST changes: +CRESTOR10 M1 PO
[2016-06-09 18:22] VITALS: BP 121/82
--- NOTE | 2016-06-09 19:07 | ED UPPER/LOWER EXTREMITY COMPL ---
History of Present Illness General Chief Complaint: Lower Extremity Problems Stated Complaint: PER PT SPASMS IN R FOOT Source: patient Exam Limitations: no limitations Vital Signs & Intake/Output Vital Signs & Intake/Output Vital Signs Date Time Temp Pulse Resp B/P Pulse O2 O2 Flow FiO2 Ox Delivery Rate 06/09 1822 97.8 92 20 121/82 96 Room Air Allergies Coded Allergies: No Known Drug Allergies (UNKNOWN 06/09/16) Reconcile Medications Amoxicillin/Potassium Clav (Augmentin 875-125 Tablet) 875 MG-125 MG TABLET 1 TAB PO BID ANTIBIOTIC, INFECTION Bupropion HCl (Bupropion XL) 150 MG TAB.ER.24H 3 TAB PO DAILY MENTAL HEALTH ( Reported) Cephalexin (Keflex) 500 MG CAPSULE 1 CAP PO 4 TIMES/DAY CELLULITIS Gabapentin 300 MG CAPSULE 1 CAP PO BID NERVE PAIN (Reported) Hydromorphone HCl 2 MG TABLET 1 TAB PO BID PRN PAIN (Reported) Lamotrigine (Lamictal) 100 MG TABLET 2 TAB PO AT BEDTIME MENTAL HEALTH ( Reported) Lamotrigine (Lamictal) 100 MG TABLET 1 TAB PO QAM MENTAL HEALTH (Reported) Lorazepam (Ativan) 0.5 MG TABLET 1 TAB PO BIDP PRN MUSCLE SPASM Lorazepam (Ativan) 1 MG TABLET 1 TAB PO BID PRN PAIN Multivitamin (Multiple Vitamins) 1 EACH TABLET 1 TAB PO DAILY SUPPLEMENT ( Reported) OMEGA-3 FATTY ACIDS (Fish Oil Concentrate) 1,000 MG CAPSULE 1 SGL PO DAILY SUPPLEMENT (Reported) Pregabalin (Lyrica) 150 MG CAPSULE 1 CAP PO BID NERVE PAIN (Reported) Risperidone 1 MG TABLET 1 TAB PO QPM SLEEPING (Reported) Rosuvastatin Calcium (Crestor) 10 MG TABLET 10 MG COLESTEROL (Reported) Sulfamethoxazole/Trimethoprim (Bactrim Ds Tablet) 800 MG-160 MG TABLET 1 TAB PO BID CELLULITIS Triage Note: TRIAGE: PT TO ER C/C RT FOOT SPASMING PAIN X 1-[address] TSE YESTERDAY WAS TOLD IT WAS THE RSD AND IT WAS OK. STATES "BUT I TOOK A DILAUDID THIS MORNING AND IT DIDN'T TOUCH THE PAIN. I CALLED THE PAIN CLINIC AND TOOK ANOTHER DILAUDID THIS AFTERNOON AND IT STILL DIDN'T TOUCH THE PAIN. MY HOME CARE NURSE CAME AND SAID YOU HAVE TO GO TO THE ER." Triage Nurses Notes Reviewed? yes Onset: Abrupt Duration: intermittent Severity: severe Severity Numbers: 8 HPI: Patient is a 61-year-old female with past medical history of right foot transmetatarsal medication and muscle spasms in which patient states that she's had intermittent muscle spasms in the last 48 hours which she followed up with her cellular equipment repairer yesterday and was told that it was part of her RSD and her surgery however patient returns today not feeling any better with at home medications of the Dilaudid administered. Patient denies any leg swelling foot swelling shortness of breath fevers chills and is otherwise without complaints. Patient was evaluated by me actually 3 months ago for similar symptoms in which patient received one injection of Ativan with complete resolution of symptoms and patient was given a prescription of Ativan however she did not fill this. Patient states that the symptoms did not come back until last 48 hours. (FERNANDO GALAVIZ) Past History Travel History Traveled to [place] past 21 day No Medical History Any Pertinent Medical History? 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 FH: hypertension MOTHER, ; Cause: Spinal cord cancer. Angina FH: breast cancer Hx Contributory? No (FERNANDO GALAVIZ) Review of Systems Review of Systems Constitutional: Reports: no symptoms. EENTM: Reports: no symptoms. Respiratory: Reports: no symptoms. Cardiovascular: Reports: no symptoms. Gastrointestinal/Abdominal: Reports: no symptoms. Genitourinary: Reports: no symptoms. Musculoskeletal: Reports: see HPI, muscle pain, muscle stiffness. Skin: Reports: no symptoms. Neurological/Psychological: Reports: no symptoms. Hematologic/Endocrine: Reports: no symptoms. Immunological: Reports: no symptoms. All Other Systems: Reviewed and Negative (FERNANDO GALAVIZ) Physical Exam Physical Exam General Appearance: no apparent distress, alert, comfortable Neurologic/Tendon: normal sensation, normal motor functions, normal tendon functions, responds to pain, no evidence tendon injury, no pulse deficit Skin: intact, normal color, warm/dry Comments: Well-developed well-nourished no apparent distress. HEENT: Atraumatic, extraocular motion intact Neck: Supple, no lymphadenopathy Back: Nontender Respiratory: No respiratory distress Extremities: Right ankle and foot noted well-healing old transtarsal amputation, no erythema no warmth no swelling no muscle spasms noted point tenderness noted to Achilles tendon with no swelling mild decreased active range of motion noted with dorsiflexion plantar flexion Neuro: Alert and oriented x3 Psych: Mood affect normal, normal memory normal judgment. (FERNANDO GALAVIZ) Progress Differential Diagnosis: arterial insufficiency, cellulitis, compartment syndrome , contusion, dislocation, DVT, fracture, gout, septic arthritis, sprain, tendon injury, muscle spasm Plan of Care: Patient currently is in no apparent distress, no observed muscle spasm noted. No signs of DVT or cellulitis or infection noted at this time. Was noted throat records and discussion with patient that patient received a IM dose of Ativan last ER visit for similar symptoms which completely resolved her symptoms patient states that she did not pick pack worker the prescription of Ativan and I strongly advised patient to begin when necessary Ativan if symptoms continue in the future and she will comply. (FERNANDO GALAVIZ) Departure Departure Disposition: HOME OR SELF CARE Condition: Stable Clinical Impression Primary Impression: Muscle spasm of calf Referrals: RJ PALOMINO MD (PCP/Family) Additional Instructions: As discussed continue home medications as directed. Begin the prescription of Ativan as directed for future muscle spasms. Follow-up with your cellular equipment repairer in 3 days if symptoms continue. If symptoms worsen return to emergency room. Per prescription is awaiting a [facility] pharmacy. Departure Forms: Customer Survey General Discharge Information Prescriptions: Current Visit Scripts Lorazepam (Ativan) 1 TAB PO BID PRN PAIN #10 TAB (FERNANDO GALAVIZ) PA/[employer] PRODU[employer] GLAZER Co-Sign Statement Statement: ED Attending supervision documentation- [] I saw and evaluated the patient. I have also reviewed all the pertinent lab results and diagnostic results. I agree with the findings and the plan of care as documented in the PA's/CL[employer] GLAZER's documentation. [X] I have reviewed the ED Record and agree with the PA's/[employer] GLAZER's documentation. [] Additions or exceptions (if any) to the PAs/CL[employer] PRODU[employer] GLAZER's note and plan are summarized below: [] (SANJAY ABEBE,JANELL Gómez)
[2016-06-09] MEDS ORDERED: ATIVAN1 M1 PO (19:26)
== END 2016-06-09 19:38 ==
LOC: ERH 18:13
DX: M62.838 Other muscle spasm (principal)

== ENCOUNTER 2016-08-04 19:50 | Inpatient (IN) | payer OTHER, MEDICARE ==
[~2016-08-04] VITALS: Ht 165.1 cm; Wt 117.9 kg
[~2016-08-04 19:50] MED LIST changes: +ATIVAN1 M1 PO
--- NOTE | 2016-08-04 20:36 | ED ANKLE/FOOT INJURY COMPLAINT ---
History of Present Illness General Chief Complaint: General Adult Stated Complaint: "FEVER, @ HOME TEMP 102,LT 4TH TOE BLISTER" Source: patient, old records Exam Limitations: no limitations Vital Signs & Intake/Output Vital Signs & Intake/Output Vital Signs Date Time Temp Pulse Resp B/P B/P Pulse O2 O2 Flow FiO2 Mean Ox Delivery Rate 08/04 2256 103.3 08/04 2229 104.0 123 22 124/63 96 Room Air 08/04 2205 104.0 08/04 2041 Room Air 08/04 1953 99.6 122 18 127/73 95 Room Air Allergies Coded Allergies: No Known Drug Allergies (UNKNOWN 06/09/16) Reconcile Medications Albuterol Sulfate (Proair Hfa) 90 MCG HFA.AER.AD 2 PUF INH AD PRN RESPIRATORY (Reported) Budesonide/Formoterol Fumarate (Symbicort 160-4.5 Mcg Inhaler) 160 MCG-4.5 MCG/ ACTUATION HFA.AER.AD 2 PUF INH PRN RESPIRATORY (Reported) Bupropion HCl (Bupropion XL) 150 MG TAB.ER.24H 3 TAB PO QAM MENTAL HEALTH ( Reported) Gabapentin 300 MG CAPSULE 1 CAP PO BID NERVE PAIN (Reported) Hydromorphone HCl 2 MG TABLET 1 TAB PO BID PRN PAIN (Reported) Lamotrigine (Lamictal) 100 MG TABLET 2 TAB PO AT BEDTIME MENTAL HEALTH ( Reported) Lamotrigine (Lamictal) 100 MG TABLET 1 TAB PO QAM MENTAL HEALTH (Reported) Multivitamin (Multiple Vitamins) 1 EACH TABLET 1 TAB PO DAILY SUPPLEMENT ( Reported) Mcgregor-3 Fatty Acids (Fish Oil Concentrate) 1,000 MG CAPSULE 1 CAP PO DAILY SUPPLEMENT (Reported) Pregabalin (Lyrica) 150 MG CAPSULE 1 CAP PO BID NERVE PAIN (Reported) Risperidone 1 MG TABLET 1 TAB PO QPM SLEEPING (Reported) Rosuvastatin Calcium (Crestor) 10 MG TABLET 10 MG PO QPM CHOLESTEROL ( Reported) Triage Note: PT TO ED C/O FEVER AT HOME 102 SINCE 3 OR 4 PM. 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 TEMP IN TRIAGE 99.6. PT SUSPECTS INFECTION IN 4TH LEFT TOE. TACHY IN TRIAGE AT 122. BP 127/73 Triage Nurses Notes Reviewed? yes HPI: Patient noticed that the third toe on her left foot began to develop an ulcer and started to get very red around it. Patient noticed that earlier today. This evening she spiked a temperature up to 103.8. Patient took Motrin and an hour and a half later her temperature was still up so she came into the emergency room for evaluation. Patient is alert he had the second toe on her left foot amputated for osteomyelitis. Past History Travel History Traveled to [place] past 21 day No Medical History Any Pertinent Medical History? 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 FH: hypertension MOTHER, ; Cause: Spinal cord cancer. Angina FH: breast cancer Hx Contributory? No Review of Systems Review of Systems Constitutional: Reports: see HPI, chills, fever. EENTM: Reports: no symptoms. Respiratory: Reports: no symptoms. Cardiovascular: Reports: no symptoms. GI: Reports: no symptoms. Genitourinary: Reports: no symptoms. Musculoskeletal: Reports: see HPI. Skin: Reports: no symptoms. Neurological/Psychological: Reports: no symptoms. Hematologic/Endocrine: Reports: no symptoms. Immunologic/Allergic: Reports: no symptoms. All Other Systems: Reviewed and Negative Physical Exam Physical Exam General Appearance: well developed/nourished, mild distress Head: atraumatic Eyes: Bilateral: PERRL, EOMI. Ears, Nose, Throat: normal pharynx, normal ENT inspection, hearing grossly normal Neck: normal inspection, supple Cardiovascular/Respiratory: normal breath sounds, regular rate/rhythm Back: normal inspection Leg/Knee/Thigh Left: normal range of motion, normal inspection Leg/Knee/Thigh Right: normal range of motion, normal inspection Foot Left: erythema, swelling, ULCER WITH SURROUNDING CHAN TISSUE TO HER THIRD TOE Neuro/Vascular: normal motor function, normal sensation Psychiatric: awake, alert, oriented x 3 Skin: intact, normal color, warm/dry Progress Differential Diagnosis: NECROTIC ULCER WITH SURROUNDING CELLULITIS Plan of Care: Orders Procedure Date/time Status LACTIC ACID 08/04 2337 Active XRY-FOOT COMPLETE, LEFT 08/04 2317 Active Admit to inpatient 08/04 2317 Active CULTURE,URINE 08/04 2037 Active BLOOD CULTURE 08/04 2037 Active URINALYSIS 08/04 2037 Active LACTIC ACID 08/04 2037 Active COMPREHENSIVE METABOLIC PANEL 08/04 2037 Active CBC WITHOUT DIFFERENTIAL 08/04 2037 Complete EKG 08/04 2037 Active Current Medications Sig/Esteban Start time Last Medication Dose Stop Time Status Admin Ibuprofen 600 MG ONCE ONE 08/04 2329 UNVr (Motrin) 08/04 2330 Acetaminophen 1,000 MG ONCE ONE 08/04 2044 CAN (Ofirmev) 08/04 2058 N/A 1 UNIT (No Carrier) Laboratory Tests 08/04/162245: CBC w Diff MAN DIFF ORDERED, RBC 4.65, MCV 86.7, MCH 28.9, RDW 14.2, MPV 8.6, Gran % 92.7 H, Lymphocytes % 3.5 L, Monocytes % 3.4, Eosinophils % 0.3, Basophils % 0.1, Absolute Granulocytes 26.7 H, Segmented Neutrophils 88 H, Band Neutrophils 1, Absolute Lymphocytes 1.0 L, Lymphocytes 7 L, Monocytes 2, Absolute Monocytes 1.0 H, Eosinophils 2, Absolute Eosinophils 0.1, Absolute Basophils 0, Platelet Estimate ADEQUATE, Normochromic RBCs VERIFIED, Poikilocytosis 1+, Stomatocytes 1+, PUBS MCHC 33.3 08/04/162220: Anion Gap 15, Estimated GFR > 60, BUN/Creatinine Ratio 22.2, Glucose 108 H, Lactic Acid Pending, Calcium 9.3, Total Bilirubin 0.8, AST 20, ALT 39, Alkaline Phosphatase 106, Total Protein 6.9, Albumin 4.3, Globulin 2.6, Albumin/Globulin Ratio 1.7 Microbiology 08/04 2245 BLOOD: Blood Culture - RECD 08/04 2154 BLOOD: Blood Culture - RECD 08/04 2037 URINE ROUT: Urine Culture - ORD Diagnostic Imaging: Viewed by Me: Radiology Read. Discussed w/RAD: Radiology Read. CXR Impression: PATIENT: TONEY HDZ PRESENT AGE: 61 PATIENT ACCOUNT NO: [id number] : 53 LOCATION: [facility] ORDERING PHYSICIAN: JANELL GRACE MD SERVICE DATE: 08/04/16 EXAM TYPE: RAD - XRY- PORTABLE CHEST XRAY EXAMINATION: XR PORTABLE CHEST CLINICAL INFORMATION: Fever COMPARISON: Chest x-ray 02/27/2015 TECHNIQUE: Portable frontal view of the chest was obtained. 8:40 PM FINDINGS: No significant abnormality is noted involving the heart, lungs, mediastinum, bony thorax or soft tissues. IMPRESSION: Unremarkable examination. 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 <Electronically signed in Other Vendor System> SIGNED BY: JEFFREY BOWMAN MD 08/04/162119 Departure Departure Disposition: STILL A PATIENT Condition: Guarded Clinical Impression Primary Impression: Cellulitis Referrals: RJ PALOMINO MD (PCP/Family) Departure Forms: Customer Survey General Discharge Information Admission Note Spoke With: RODRIGO SONI MD Documentation of Exam: Documentation of any treatments & extenuating circumstances including Concerns Regarding Discharge (functional status, medication knowledge or non-compliance, living conditions, etc.) that warrant an admission rather than observation: [IV ABX, DR. TSE WILL SEE HER IN THE AM, PT MAY REQUIRE SURGERY]
[2016-08-04] MEDS ORDERED: PROAIR HFA8.5 GM INH (21:04)
[2016-08-04] MEDS ORDERED: SYMBICORT 16010.2 GM INH (21:05)
--- NOTE | 2016-08-04 21:20 | RADIOLOGY REPORT ---
EXAMINATION: XR PORTABLE CHEST CLINICAL INFORMATION: Fever COMPARISON: Chest x-ray 02/27/2015 TECHNIQUE: Portable frontal view of the chest was obtained. 8:40 PM FINDINGS: No significant abnormality is noted involving the heart, lungs, mediastinum, bony thorax or soft tissues. IMPRESSION: Unremarkable examination.
[2016-08-04 22:54] LABS: ABSOLUTE BASOPHIL COUNT 0 /CUMM (0.0-0.2); ABSOLUTE EOSINOPHIL COUNT 0.1 /CUMM (0.0-0.7); ABSOLUTE GRANULOCYTE CT 26.7 /CUMM (1.4-6.5); BASOPHIL % 0.1 % (0.0-2.0); EOSINOPHIL % 0.3 % (0-5); GRANULOCYTE % 92.7 % (42.2-75.2); HEMATOCRIT 40.3 % (37-47); MEAN CORPUSCULAR HGB 28.9 PG (27.0-31.0); MEAN CORPUSCULAR HGB CONC 33.3 G/DL (33.0-37.0); MEAN CORPUSCULAR VOLUME 86.7 FL (81.0-99.0); MEAN PLATELET VOLUME 8.6 FL (7.4-10.4); PLATELET COUNT 221 /CUMM (130-400); RBC DISTRIBUTION WIDTH 14.2 % (11.5-14.5); RED BLOOD CELL CT 4.65 /CUMM (4.20-5.40); WHITE BLOOD CELL COUNT 28.8 /CUMM (4.8-10.8)
--- NOTE | 2016-08-05 00:27 | RADIOLOGY REPORT ---
EXAMINATION: XR FOOT, LEFT CLINICAL INFORMATION: Left toe infection, question gas gangrene COMPARISON: 04/08/2016 TECHNIQUE: AP, lateral, and oblique views of the left foot. FINDINGS: No soft tissue gas is identified. Diffuse mild soft tissue swelling is suspected. There is redemonstration of several chronic changes in the foot. 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 Chronic deformities of the third proximal phalanx and distal aspect of the fourth metatarsal are again demonstrated. No acute fracture is seen. 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 Degenerative change is also seen at the first MTP joint. IMPRESSION: No soft tissue gas identified. Redemonstration of chronic changes as detailed above.
--- NOTE | 2016-08-05 02:18 | History & Physical ---
ERNIERANDFLETCHER 08/05/16 0217: General Information and HPI MD Statement: I have seen and personally examined TONEY HDZ and documented this H&P. The patient is a 61 year old F who presented with a patient stated chief complaint of fever and left 4th toe blister associated with redness and swelling Source of Information: patient, old records Exam Limitations: no limitations History of Present Illness: Ms. Hdz is a 61 y/o female with a PMH of idiopathic neuropathy of both lower extremities with secondary ulcers of both feet s/p multiple debridements and amputations of the left second toe and right metatarsal amputation, irritable bowel syndrome, diverticulitis s/p left hemicolectomy, depression, borderline personality disorder, uterine cancer s/p hysterectomy, migraines, complex regional pain syndrome who presented with chief c/o increasing erythema, edema off left fourth toe and fever. She has a history of an idiopathic neuropathy affecting both lower extremities, with secondary ulcers of both feet, status post amputations of the left second and right transmetatarsal amputation over the past several years and treatment with several courses of IV antibiotics for osteomyelitis, with bone cultures positive for MSSA, treated with a 4 week course of IV Oxacillin followed by a two-week course of Augmentin and Pseudomonas treatted with 4 weeks of IV zosyn. Patient reported being having a blister on her left fourth toe associated with redness and swelling for couple of months. She has been following Dr. Razo at wound care center. However for the past 2 days redness and swelling has been increased associated with fever this morning. Temperature was 102 at home, took motrin with no relief. And she came to the emergency department. Denies any discharge at the site of the blister. She denies any chest pain, racing of heart, difficulty breathing, cough, headache, nausea, vomiting, abdominal pain, change in bladder or bowel habits. Of note she has idiopathic neuropathy of both lower extremities. Denies smoking, alcohol abuse, illicit drug intake. She lives at home and takes care of herself. Allergies/Medications Allergies: Coded Allergies: No Known Drug Allergies (UNKNOWN 06/09/16) Home Med list Albuterol Sulfate (Proair Hfa) 90 MCG HFA.AER.AD 2 PUF INH AD PRN RESPIRATORY (Reported) Budesonide/Formoterol Fumarate (Symbicort 160-4.5 Mcg Inhaler) 160 MCG-4.5 MCG/ ACTUATION HFA.AER.AD 2 PUF INH PRN RESPIRATORY (Reported) Bupropion HCl (Bupropion XL) 150 MG TAB.ER.24H 3 TAB PO QAM MENTAL HEALTH ( Reported) Gabapentin 300 MG CAPSULE 1 CAP PO BID NERVE PAIN (Reported) Hydromorphone HCl 2 MG TABLET 1 TAB PO BID PRN PAIN (Reported) Lamotrigine (Lamictal) 100 MG TABLET 2 TAB PO AT BEDTIME MENTAL HEALTH ( Reported) Lamotrigine (Lamictal) 100 MG TABLET 1 TAB PO QAM MENTAL HEALTH (Reported) Multivitamin (Multiple Vitamins) 1 EACH TABLET 1 TAB PO DAILY SUPPLEMENT ( Reported) [place]-3 Fatty Acids (Fish Oil Concentrate) 1,000 MG CAPSULE 1 CAP PO DAILY SUPPLEMENT (Reported) Pregabalin (Lyrica) 150 MG CAPSULE 1 CAP PO BID NERVE PAIN (Reported) Risperidone 1 MG TABLET 1 TAB PO QPM SLEEPING (Reported) Rosuvastatin Calcium (Crestor) 10 MG TABLET 10 MG PO QPM CHOLESTEROL ( Reported) Compliance With Home Meds: GOOD Past History Travel History Traveled to [place] past 21 day No Medical History Neurological: migraine, peripheral neuropathy EENT: NONE Cardiovascular: NONE Respiratory: NONE Gastrointestinal: diverticulitis, irritable bowel syndrome Hepatic: cholelithiasis Renal: NONE Musculoskeletal: sciatica, OSTEOMYELITIS HX FEET 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 Psychiatric: depression, BORDERLINE PERSONALITY DX Endocrine: DIABETES (BORDERLINE) Blood Disorders: NONE Cancer(s): 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 FH: hypertension MOTHER, ; Cause: Spinal cord cancer. Angina FH: breast cancer Psychosocial History Who Do You Live With? self Primary Language: Jamaican Smoking Status: Never Smoked ETOH Use: denies use Illicit Drug Use: denies illicit drug use Functional Ability ADLs Independent: dressing, eating, toileting, bathing. Ambulation: walker, heel touch only in right foot Review of Systems Review of Systems Constitutional: Reports: chills, diaphoresis, fever. Denies: malaise, weakness, unexplained weight loss. EENTM: Denies: see HPI. Cardiovascular: Denies: chest pain, edema, orthopena, palpitations, peripheral edema, syncope. Respiratory: Denies: cough, hemoptysis, orthopnea, short of breath. GI: Denies: abdominal pain, bloating, constipation, diarrhea, distention, nausea, bloody stool. Genitourinary: Denies: discharge, dysuria, pain, urgency. Musculoskeletal: Denies: back pain, gout, joint pain. Skin: Denies: see HPI. Neurological/Psychological: Denies: anxiety, ataxia, confusion, depressed, headache, numbness, tingling, tremors. Exam & Diagnostic Data Last 24 Hrs of Vital Signs/I&O Vital Signs Date Time Temp Pulse Resp B/P B/P Pulse O2 O2 Flow FiO2 Mean Ox Delivery Rate 08/04 2344 102.1 08/04 2321 102.3 08/04 2315 102.3 125 16 117/55 95 Room Air 08/04 2257 103.3 08/04 2230 104.0 123 22 124/63 96 Room Air 08/04 2206 104.0 08/04 2042 Room Air 08/04 1954 99.6 122 18 127/73 95 Room Air Intake & Output 08/05 0800 08/05 0000 08/04 1600 Intake Total 120 Output Total Balance 120 Intake, Oral 120 Patient 117.934 kg Weight Weight Reported by Patient Measurement Method Physical Exam General Appearance Alert, Oriented X3, Cooperative, No Acute Distress Skin No Rashes, No Breakdown HEENT Atraumatic, PERRLA, EOMI, Mucous Membr. moist/pink Neck Supple, No JVD, No thryomegaly Lymphatic Cervical nl Cardiovascular Regular Rate, Normal S1, Normal S2, No Murmurs Lungs Clear to Auscultation, Normal Air Movement Abdomen Normal Bowel Sounds, Soft, No Tenderness Neurological Normal Speech, Strength at 5/5 X4 Ext, Normal Tone, Sensation Intact, Cranial Nerves 3-12 NL, Reflexes 2+ Extremities No Clubbing, No Cyanosis, No Edema, Ulcer on medial and lateral aspect of foot-not infected. For the left third toe has a small blister, fluid- filled, fluctuant,bluish discoloration at the tip, redness in the forefoot. Range of motion intact, pulses intact Vascular Normal Pulses, Pulses Symmetrical Last 24 Hrs of Labs/Matthew: Laboratory Tests 08/04/162337: Lactic Acid Cancelled 08/04/162245: CBC w Diff MAN DIFF ORDERED, RBC 4.65, MCV 86.7, MCH 28.9, RDW 14.2, MPV 8.6, Gran % 92.7 H, Lymphocytes % 3.5 L, Monocytes % 3.4, Eosinophils % 0.3, Basophils % 0.1, Absolute Granulocytes 26.7 H, Segmented Neutrophils 88 H, Band Neutrophils 1, Absolute Lymphocytes 1.0 L, Lymphocytes 7 L, Monocytes 2, Absolute Monocytes 1.0 H, Eosinophils 2, Absolute Eosinophils 0.1, Absolute Basophils 0, Platelet Estimate ADEQUATE, Normochromic RBCs VERIFIED, Poikilocytosis 1+, Stomatocytes 1+, PUBS MCHC 33.3 08/04/162220: Anion Gap 15, Estimated GFR > 60, BUN/Creatinine Ratio 22.2, Glucose 108 H, Lactic Acid 1.6, Calcium 9.3, Total Bilirubin 0.8, AST 20, ALT 39, Alkaline Phosphatase 106, Total Protein 6.9, Albumin 4.3, Globulin 2.6, Albumin/Globulin Ratio 1.7 Microbiology 08/04 2245 BLOOD: Blood Culture - RECD 08/04 2154 BLOOD: Blood Culture - RECD 08/04 2037 URINE ROUT: Urine Culture - COLB Assessment/Plan Assessment: Ms. Hdz is a 61 y/o female with a PMH of idiopathic neuropathy of both lower extremities with secondary ulcers of both feet s/p multiple debridements and amputations of the left second toe and right metatarsal amputation, irritable bowel syndrome, diverticulitis s/p left hemicolectomy, depression, borderline personality disorder, uterine cancer s/p hysterectomy, migraines, complex regional pain syndrome who presented with chief c/o increasing erythema, edema off left fourth toe and fever. Vitals on admission-temperature max 104, tachycardic 122, respiratory rate 18, blood pressure 127/73, saturating at 95% on room air. Pertinent labs on admission CBC-leukocytosis 28,000. BEP normal Lactic acid 1.6. Chest x-ray normal Foot x-ray no soft tissue gas identified. Diffuse mild soft tissue swelling is suspected Problem list 1. Sepsis possibly from cellulitis versus osteomyelitis left toe 2. Idiopathic neuropathy of lower extremities 3. Hyperlipidemia 4. COPD 5. Depression 6. Bipolar disorder Sepsis possibly from cellulitis versus osteomyelitis of left 4th toe Patient presented with a left fourth toe blister associated with redness, swelling. She spiked a temperature max 104 and she was tachycardic. WBC count 28,000 on admission she fulfilled SIRS criteria on admission and the source of sepsis is left 4th toe. X-ray doesn't show any evidence of gas or osteomyelitis. She has a history of an idiopathic neuropathy affecting both lower extremities, with secondary ulcers of both feet, status post amputations of the left second toe and right transmetatarsal amputation over the past several years and treatment with several courses of IV antibiotics for osteomyelitis, with bone cultures positive for MSSA, treated with a 4 week course of IV Oxacillin followed by a two-week course of Augmentin and Pseudomonas treated with 4 weeks of IV zosyn. * Admitted to general med floor for management of cellulitis versus osteomyelitis of left fourth toe and the left forefoot. * Monitor vitals closely * Monitor closely for blood pressure as she is septic * IV Tylenol for fever * Pain medication if necessary * Patient received 1 dose of antibiotic ceftriaxone in the emergency room. * Will get MRI foot tomorrow. * Consult Dr. Alegria dock builder in am * We'll hold off antibiotics for now * If she spikes fever will start on Unasyn * Follow-up blood cultures * Follow-up CBC and BEP Idiopathic neuropathy of lower extremities * Continue gabapentin * Continue Lyrica COPD * Continue albuterol * Continue Symbicort Hyperlipidemia * Continue Crestor Depression * Continue bupropion Bipolar disorder * Continue Lamictal Insomnia * Continue risperidone Full code DVT prophylaxis heparin Patient is nothing by mouth for possible procedure of foot tomorrow Pain pathway-Tylenol, Dilaudid As Ranked By This Provider Problem List: 1. Cellulitis 2. Osteomyelitis of foot, right, acute 3. Sepsis Core Measures/Miscellaneous Acute Coronary Syndrome ACS Diagnosis: No Cerebrovascular Accident CVA/TIA Diagnosis: No Congestive Heart Failure CHF Diagnosis: No Venous Thromboembolism VTE Risk Factors: Age > 40 [facility] prophylaxis d/t: VTE low risk, No contraindications No VTE Pharm Prophylaxis d/t: No contraindications VTE Diagnosis: No VTE Type: NONE VTE Confirmed by (Test): NONE Severe Sepsis Severe Sepsis Present: No BC x2: No Septic Shock Septic Shock Present: No Miscellaneous Documentation Attending Case Discussed With: RODRIGO SONI MD Primary Care Physician: RJ PALOMINO MD Patient sees these Specialists dock builder Level of Patient Care: General Medicine NAEARLINEHarrison 08/05/16 0312: Attending MD Review Statement Attending Statement Attending MD Statement: examined this patient, discuss w/resident/PA/GYM MANAGER, agreed w/resident/PA/GYM MANAGER, reviewed EMR data (avail), reviewed images, amended to note Attending Assessment/Plan: CC: Fever and chills, left fourth toe worsening swelling and redness PMHx: Idiopathic peripheral neuropathy, ?prediabetes, hemicolectomy secondary to diverticulitis, right meniscal tear, mood disorder, uterine cancer S/P hysterectomy Patient notice a fever of 102 at home. She had swelling and redness of her fourth left toe since approximately a month. Since last 2 days it appeared more red and swollen. She also noticed bleb on that toe and discoloration. She has chronically nonhealing superficial ulcers on medial and lateral and plantar aspect of that foot which are unchanged. Because of the fever spike she came to ER. Vitals: Tmax 104, HR 122, RR 18, blood pressure 127/73, saturating well on room air. On exam: A O 3, no acute distress, lying comfortably, no lymphadenopathy, neck supple, CVS: S1-S2, RRR. RS: Clear air entry bilaterally present. Abdomen: Soft, NT, ND, bowel sounds present. Left lower extremity foot there is ulceration on medial and lateral aspect of foot uninfected, fourth toe has a small vesicle, fluid-filled, bluish in color, surrounded by redness, swelling, no pus discharge ,Redness in forefoot. Range of motion intact, pulses intact, no crepitus. Labs: WBC 28.8 with neutrophils 92%, band 1, bicarbonate 21, anion gap 15, BUN 20, creatinine 0.9, glucose 108, lactate 1.6, LFT unremarkable CXR: Unremarkable X-ray foot: No soft tissue gas identified. Diffuse mild soft tissue swelling is suspected. A and P #1 sepsis: Secondary to left fourth toe infection with secondary cellulitis, significant fever, leukocytosis, tachycardia present. X-ray does not show any evidence of gas or osteomyelitis. The redness is marked. Patient received a dose of Rocephin in ER. Suspect osteomyelitis, obtain MRI if okay with Dr. Patel, consult Dr. Patel, if second spike a fever start Unasyn, if no spike of fever weight for surgical opinion for debridement and tissue culture, if no surgery is planned then continue Unasyn and ID consult. No other source of infection identified for sepsis other than this on ROS. Continue gentle hydration, CBC BMP in a.m., blood cultures. #2 mood disorder: Continue bupropion, risperidone. #3 pain: Continue gabapentin, Lyrica, Dilaudid. #4 DVT prophylaxis with heparin FIDE PINEDO 08/05/16 0439: Resident Review Statement Resident Statement: examined this patient, discussed with international nurse, agreed with international nurse, discussed with case mgmt Other Findings: Ms. Hdz is a pleasant 61-year-old woman with significant past medical history of COPD, anxiety/depression, hyperlipidemia, diverticulosis/IBS status post hemicolectomy, idiopathic neuropathy with multiple bouts of osteomyelitis in her toes [status post right transmetatarsal amputation, left second toe amputation], who has previously grown methicillin sensitive staph aureus and Pseudomonas from previous OR cultures, multiple previous soft tissue infections, followed by Dr. Patel and at the wound care center, who presented to the hospital emergency department with fever and left foot/fourth toe erythema. The patient states that she has no sensation below her knees bilaterally and was prompted to check her foot she noticed she was developing fevers. This is a similar presentation to her past diagnoses of osteomyelitis. She is being followed by Dr. Patel in the outpatient setting, most recently 1.5 weeks ago where she was followed for a healing wound on the medial aspect of the hallux, as well as swelling of her left fourth toe. She last visited the wound center approximately one month ago. The remaining review of systems and is ago exam as dictated above. Of note, fourth toe on the left foot does exhibit significant swelling and discoloration over the middle phalanx. There is a fluctuant mass approximately 1 cm x 1 cm in the overlying area, and there is approximately a 3 x 4 cm area of underlying erythema in the surrounding toes and skin overlying the metatarsals. The left foot is significantly warmer than the right foot. No tenderness to palpation appreciated. There are healing superficial ulcers on the medial aspect of the left hallux as well as lateral aspect of the skin overlying the fifth metatarsal. No underlying erythema or fluctuant masses appreciated. Labs and imaging as dictated above with note of leukocytosis 28.8 [88% segmented neutrophils, 1 band]. Foot x-ray demonstrated no soft tissue gas. Problem list assessment and plan We will admit the patient to the general medicine floor and treat for the following problems: Cellulitis/? osteomyelitis * Given the patient's multiple episodes of osteomyelitis, clinical findings and white count, we of course have to assume this is another episode of osteomyelitis as opposed to uncomplicated cellulitis. * The patient was given a dose of ceftriaxone in the emergency department. We will hold off antibiotics for now as we do not want to prevent growth of any potential samples obtained if the patient does go to the OR to be debrided. * We will also obtain an ESR, as well as an MRI of the left foot. * Dr. Patel is aware of the admission and we will keep the patient nothing by mouth in case of possible intervention tomorrow. * We will also get infectious disease on board. * Given the fact that the patient did have significant fevers, MAXIMUM TEMPERATURE 104.0, and she does not defervesce after the dose of ceftriaxone and Tylenol, we may have to start Unasyn, however we will hold off on antibiotics for now. * Blood cultures drawn and sent. * Also given her fever, we will start IV hydration with normal saline to combat insensible fluid loss. * We will avoid NSAIDs/antiplatelet medications for now as she may go to the [facility] tomorrow. Anxiety/depression/bipolar disorder/hyperlipidemia/COPD * We will continue the patient's home doses of risperidone/lamotrigine/loopogram /atorvastatin/Symbicort. Full code Alps for DVT prophylaxis Pain pathway Regular diet
--- NOTE | 2016-08-05 03:14 | Admission Certification ---
Admission Certification Certification Statement - As attending physician, I certify that at the time of - admission, based on clinical presentation, severity of - symptoms, need for further diagnostic testing and - therapeutic interventions, and risk of adverse outcomes - without in-hospital treatment, in my clinical assessment, - this patient requires an acute hospital stay for a minimum - of two nights or longer. I have also considered psychsocial - factors such as support system, advanced age, financial - issues, cognitive issues, and failed out-patient treatments, - past re-admission history, safety of patient, and lack of - compliance as applicable. Specific rationale supporting this admission is: Left fourth toe infection with cellulitis rule out osteomyelitis
[2016-08-05 06:45] LABS: ABSOLUTE BASOPHIL COUNT 0 /CUMM (0.0-0.2); ABSOLUTE EOSINOPHIL COUNT 0 /CUMM (0.0-0.7); ABSOLUTE LYMPH COUNT 0.9 /CUMM (1.2-3.4); ABSOLUTE MONOCYTE COUNT 0.6 /CUMM (0.10-0.60); EOSINOPHIL % 0.1 % (0-5); MEAN CORPUSCULAR HGB 29.3 PG (27.0-31.0)
[2016-08-05 06:48] LABS: ABSOLUTE GRANULOCYTE CT 25.4 /CUMM (1.4-6.5); BASOPHIL % 0 % (0.0-2.0); GRANULOCYTE % 94.5 % (42.2-75.2); HEMATOCRIT 41.9 % (37-47); MEAN CORPUSCULAR HGB CONC 33.3 G/DL (33.0-37.0); MEAN CORPUSCULAR VOLUME 88.2 FL (81.0-99.0); MEAN PLATELET VOLUME 9.4 FL (7.4-10.4); PLATELET COUNT 170 /CUMM (130-400); RBC DISTRIBUTION WIDTH 14.2 % (11.5-14.5); RED BLOOD CELL CT 4.75 /CUMM (4.20-5.40); WHITE BLOOD CELL COUNT 26.9 /CUMM (4.8-10.8)
[2016-08-05 06:59] LABS: PT 13.3 SEC (9.4-12.5)
--- NOTE | 2016-08-05 11:24 | Cons- Infect Disease ---
General Information and HPI Consulting Request Date of Consult: 08/05/16 Requested By: LUIS CAT M.D Reason for Consult: Infected left fourth toe/cellulitis of left foot Source of Information: patient, old records History of Present Illness: This is a 61-year-old woman with a history of an idiopathic neuropathy status post left second toe amputation 3 and 1/2 years prior to admission and right TMA 1 and 1/2 years prior to admission after several courses of antibiotics for osteomyelitis, hospitalized 4 times in the past year for a left leg cellulitis, with x-rays and MRI, most recently 4 months prior to admission, negative for osteomyelitis, with a chronic plantar ulcer of the left great toe, with intermittent drainage, and chronic discoloration and edema of the left fourth toe for the past year, seen in the emergency room over 2 months prior to admission with concern of an abscess in the right foot, treated with Keflex and Bactrim, with an MRI 2 days later revealing a fluid collection along the plantar surface of the distal foot and possible early osteomyelitis of the residual fifth metatarsal, with no intervention at that time, admitted on August 04 after presenting to the emergency room with the acute onset of fevers and chills, bluish discoloration of the left fourth toe and erythema over the dorsum of the left foot. On admission she was febrile to 104. Laboratory data revealed a white blood cell count of 29,000, BUN/creatinine 20 and 0.9, with normal liver enzymes. X-ray of the left foot revealed diffuse mild soft tissue swelling with no mention of osteomyelitis. She was given Ceftriaxone, Unasyn and Vancomycin and is scheduled for the OR later today. She reports no pain in the foot secondary to her neuropathy. Allergies/Medications Allergies: Coded Allergies: No Known Drug Allergies (UNKNOWN 06/09/16) Home Med List: Albuterol Sulfate (Proair Hfa) 90 MCG HFA.AER.AD 2 PUF INH AD PRN RESPIRATORY (Reported) Budesonide/Formoterol Fumarate (Symbicort 160-4.5 Mcg Inhaler) 160 MCG-4.5 MCG/ ACTUATION HFA.AER.AD 2 PUF INH PRN RESPIRATORY (Reported) Bupropion HCl (Bupropion XL) 150 MG TAB.ER.24H 3 TAB PO QAM MENTAL HEALTH ( Reported) Gabapentin 300 MG CAPSULE 1 CAP PO BID NERVE PAIN (Reported) Hydromorphone HCl 2 MG TABLET 1 TAB PO BID PRN PAIN (Reported) Lamotrigine (Lamictal) 100 MG TABLET 2 TAB PO AT BEDTIME MENTAL HEALTH ( Reported) Lamotrigine (Lamictal) 100 MG TABLET 1 TAB PO QAM MENTAL HEALTH (Reported) Multivitamin (Multiple Vitamins) 1 EACH TABLET 1 TAB PO DAILY SUPPLEMENT ( Reported) [place]-3 Fatty Acids (Fish Oil Concentrate) 1,000 MG CAPSULE 1 CAP PO DAILY SUPPLEMENT (Reported) Pregabalin (Lyrica) 150 MG CAPSULE 1 CAP PO BID NERVE PAIN (Reported) Risperidone 1 MG TABLET 1 TAB PO QPM SLEEPING (Reported) Rosuvastatin Calcium (Crestor) 10 MG TABLET 10 MG PO QPM CHOLESTEROL ( Reported) Past History Travel History Traveled to [place] past 21 day No Medical History Blood Transfusion Hx: No Neurological: migraine, peripheral neuropathy EENT: NONE Cardiovascular: NONE Respiratory: NONE Gastrointestinal: diverticulitis, irritable bowel syndrome Hepatic: cholelithiasis Renal: NONE Musculoskeletal: sciatica, OSTEOMYELITIS HX FEET 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 Psychiatric: depression, BORDERLINE PERSONALITY DX Endocrine: DIABETES (BORDERLINE) Blood Disorders: NONE Cancer(s): UTERINE CA HIDE TRIMMER/Reproductive: NONE Other Medical Hx: neuropathy crps/rsd RLE History of MRSA: No History of VRE: No History of CDIFF: No Isolation History: Standard Surgical History Surgical History: appendectomy, cholecystectomy, colon resection (left hemicolectomy), hernia repair-umbilical, hysterectomy, laminectomy, LEFT [place] COLECTOMY, s/p right TMA, s/p amputation of the left 2nd toe Family History Relations & Conditions If Any: FATHER, , Age 50-60; Cause: Myocardial infarction. FH: hypertension MOTHER, ; Cause: Spinal cord cancer. Angina FH: breast cancer Psychosocial History Where Do You Live? Home Who Do You Live With? self Primary Language: Ukrainian Smoking Status: Never Smoked ETOH Use: denies use Illicit Drug Use: denies illicit drug use Functional Ability ADLs Independent: dressing, eating, toileting, bathing. Ambulation: walker, heel touch only in right foot Review of Systems Review of Systems All Other Systems: Reviewed and Negative Exam & Diagnostic Data Last 24 Hrs of Vital Signs/I&O Vital Signs Date Time Temp Pulse Resp B/P B/P Pulse O2 O2 Flow FiO2 Mean Ox Delivery Rate 08/05 0810 100.0 / 0810 100.0 75 20 111/57 98 Room Air / 0703 101.1 05/ 0648 101.1 05/ 0648 101.1 103 20 141/73 6 Room Air 05/ 0606 100.6 05/ 0553 100.6 106 20 104/58 100 Room Air 08/05 0500 99.1 97 16 103/77 96 Room Air 08/05 0430 96 16 109/60 98 Room Air 08/05 0406 106/60 05/ 0339 98.0 90 16 83/50 97 Room Air 08/04 2344 102.1 05 2321 102.3 05 2315 102.3 125 16 117/55 95 Room Air 08/04 2257 103.3 08/04 2230 104.0 123 22 124/63 96 Room Air 08/04 2206 104.0 08/04 2042 Room Air 08/04 1954 99.6 122 18 127/73 95 Room Air Intake & Output 08/05 1600 08/05 0800 08/05 0000 Intake Total 120 Output Total Balance 120 Intake, Oral 120 Patient 260 lb 260 lb Weight Weight Reported by Patient Reported by Patient Measurement Method Physical Exam Other Physical Findings: She is awake and alert in no acute distress. MAXIMUM TEMPERATURE 104. Skin reveals no rash. HEENT exam is negative. Neck is supple with no adenopathy. Lungs are clear. Heart regular rhythm with no murmur. Abdomen is soft, nontender with positive bowel sounds. Back no CVA tenderness. Extremities status post right TMA with some bogginess to the distal aspect of her stump, with no erythema or open wounds; left foot status post second toe amputation; fourth toe with blue/purple discoloration with edema; erythema over the dorsum of the left foot; plantar ulcer over the left great toe, with no surrounding erythema or drainage. Neuro neuropathy both feet. Last 24 Hours of Lab Results: Laboratory Tests 08/05 08/04 0634 2338 Chemistry Sodium (137 - 145 mmol/L) 146 H Potassium (3.5 - 5.1 mmol/L) 4.1 Chloride (98 - 107 mmol/L) 113 H Carbon Dioxide (22 - 30 mmol/L) 21 L Anion Gap (5 - 16) 12 BUN (7 - 17 mg/dL) 20 H Creatinine (0.5 - 1.0 mg/dL) 0.8 Estimated GFR (>60 ml/min) > 60 BUN/Creatinine Ratio (7 - 25 %) 25.0 Hemoglobin A1c (4.2 - 5.8 %) Pending Lactic Acid Cancelled Coagulation PT (9.4 - 12.5 SEC) 13.3 H INR (0.90 - 1.19) 1.27 H Hematology CBC w Diff MAN DIFF ORDERED WBC (4.8 - 10.8 /CUMM) 26.9 H RBC (4.20 - 5.40 /CUMM) 4.75 Hgb (12.0 - 16.0 G/DL) 13.9 Hct (37 - 47 %) 41.9 MCV (81.0 - 99.0 FL) 88.2 MCH (27.0 - 31.0 PG) 29.3 RDW (11.5 - 14.5 %) 14.2 Plt Count (130 - 400 /CUMM) 170 MPV (7.4 - 10.4 FL) 9.4 Gran % (42.2 - 75.2 %) 94.5 H Lymphocytes % (20.5 - 51.1 %) 3.2 L Monocytes % (1.7 - 9.3 %) 2.2 Eosinophils % (0 - 5 %) 0.1 Basophils % (0.0 - 2.0 %) 0 L Absolute Granulocytes (1.4 - 6.5 /CUMM) 25.4 H Segmented Neutrophils (42.2 - 75.2 %) 93 H Band Neutrophils (0.0 - 5.0 %) 2 Absolute Lymphocytes (1.2 - 3.4 /CUMM) 0.9 L Lymphocytes (20.5 - 51.1 %) 4 L Monocytes (1.7 - 9.3 %) 1 L Absolute Monocytes (0.10 - 0.60 /CUMM) 0.6 Absolute Eosinophils (0.0 - 0.7 /CUMM) 0 Absolute Basophils (0.0 - 0.2 /CUMM) 0 Platelet Estimate (ADEQUATE) ADEQUATE Normocytic RBCs VERIFIED Normochromic RBCs VERIFIED PUBS MCHC (33.0 - 37.0 G/DL) 33.3 ESR Westergren (0 - 20 MM) 24 H Other Body Source Fld Total RBCs Counted (%) 100 08/04 08/04 2246 2221 Chemistry Sodium (137 - 145 mmol/L) 144 Potassium (3.5 - 5.1 mmol/L) 4.1 Chloride (98 - 107 mmol/L) 107 Carbon Dioxide (22 - 30 mmol/L) 21 L Anion Gap (5 - 16) 15 BUN (7 - 17 mg/dL) 20 H Creatinine (0.5 - 1.0 mg/dL) 0.9 Estimated GFR (>60 ml/min) > 60 BUN/Creatinine Ratio (7 - 25 %) 22.2 Glucose (65 - 99 mg/dL) 108 H Lactic Acid (0.7 - 2.1 mmol/L) 1.6 Calcium (8.4 - 10.2 mg/dL) 9.3 Total Bilirubin (0.2 - 1.3 mg/dL) 0.8 AST (14 - 36 U/L) 20 ALT (9 - 52 U/L) 39 Alkaline Phosphatase (<127 U/L) 106 Total Protein (6.3 - 8.2 g/dL) 6.9 Albumin (3.5 - 5.0 g/dL) 4.3 Globulin (1.9 - 4.2 gm/dL) 2.6 Albumin/Globulin Ratio (1.1 - 2.2 %) 1.7 Hematology CBC w Diff MAN DIFF ORDERED WBC (4.8 - 10.8 /CUMM) 28.8 H RBC (4.20 - 5.40 /CUMM) 4.65 Hgb (12.0 - 16.0 G/DL) 13.4 Hct (37 - 47 %) 40.3 MCV (81.0 - 99.0 FL) 86.7 MCH (27.0 - 31.0 PG) 28.9 RDW (11.5 - 14.5 %) 14.2 Plt Count (130 - 400 /CUMM) 221 MPV (7.4 - 10.4 FL) 8.6 Gran % (42.2 - 75.2 %) 92.7 H Lymphocytes % (20.5 - 51.1 %) 3.5 L Monocytes % (1.7 - 9.3 %) 3.4 Eosinophils % (0 - 5 %) 0.3 Basophils % (0.0 - 2.0 %) 0.1 Absolute Granulocytes (1.4 - 6.5 /CUMM) 26.7 H Segmented Neutrophils (42.2 - 75.2 %) 88 H Band Neutrophils (0.0 - 5.0 %) 1 Absolute Lymphocytes (1.2 - 3.4 /CUMM) 1.0 L Lymphocytes (20.5 - 51.1 %) 7 L Monocytes (1.7 - 9.3 %) 2 Absolute Monocytes (0.10 - 0.60 /CUMM) 1.0 H Eosinophils (0 - 5.0 %) 2 Absolute Eosinophils (0.0 - 0.7 /CUMM) 0.1 Absolute Basophils (0.0 - 0.2 /CUMM) 0 Platelet Estimate (ADEQUATE) ADEQUATE Normochromic RBCs VERIFIED Poikilocytosis 1+ Stomatocytes 1+ PUBS MCHC (33.0 - 37.0 G/DL) 33.3 Last 24 Hours of Matthew Results: Blood cultures August 04 negative Diagnostic Data Recent Imaging Findings: Chest x-ray August 04 negative X-ray of the left foot August 04 reveals diffuse mild soft tissue swelling with chronic deformities of the third proximal phalanx and distal aspect of the fourth metatarsal; no osteomyelitis noted Assessment/Plan Assessment/Plan Impression: This is a 61-year-old woman with an underlying neuropathy of both feet, with a history of chronic bilateral ulcers, status post right TMA 1 and 1/2 years prior to admission, with a history of recurrent left leg cellulitis and discoloration and swelling of the left fourth toe and a plantar ulcer over the left great toe over the past year, admitted on August 04 after presenting to the emergency room with the acute onset of fevers and chills and erythema over the dorsum of the left foot, found to be febrile with a marked leukocytosis and with exam revealing marked inflammation of the left fourth toe and cellulitis over the dorsum of the left foot. Her clinical picture is consistent with sepsis secondary to the infected left fourth toe, which will require amputation. She presumably has underlying osteomyelitis and may require a prolonged course of antibiotics for residual osteomyelitis. The possibility of osteomyelitis of the left great toe must also be considered given the chronic plantar ulcer and further evaluation for this may be warranted. The collection seen on the recent MRI at the distal aspect of the right TMA stump is of unclear etiology and, with no overlying inflammation, is of unclear significance. Suggestion: 1. Await OR later today for amputation of the left fourth toe 2. Further evaluation, perhaps with MRI of the left foot, for the left great toe plantar ulcer 3. Follow-up OR cultures 4. Discontinue Vancomycin 5. Continue Unasyn 3 g IV every 6 hours pending above Consult Acknowledgment - Thank you for your consult request.
--- NOTE | 2016-08-05 12:24 | ULTRASOUND REPORT ---
EXAMINATION: US-BILAT LOW EXTREMITY ARTERIAL DOPPLER CLINICAL INFORMATION: 61-year-old female with peripheral arterial disease, recurrent m the bones with poor healing osteomyelitis. COMPARISON: None TECHNIQUE: Real-time ultrasound and Doppler techniques (integrating B-mode 2-D vascular images, Doppler spectral analysis and color flow Doppler imaging) were utilized to interrogate the lower extremities. Evaluation is somewhat limited secondary to patient body habitus. FINDINGS: Right lower extremity: Common femoral artery: 135 cm/sec; triphasic waveform Superficial femoral artery proximal: 127 cm/sec; triphasic waveform Superficial femoral artery mid portion: 104 cm/sec; triphasic waveform Superficial femoral artery distal: 111 cm/sec; triphasic waveform Profunda artery: 88 cm/sec; triphasic waveform Popliteal artery: 85 cm/sec; triphasic waveform Posterior tibial artery: 78 cm/sec; triphasic waveform Anterior tibial artery: 70 cm/sec; triphasic waveform Dorsalis pedis artery: 82 cm/sec; biphasic waveform Left lower extremity: Common femoral artery: 138 cm/sec; triphasic waveform Superficial femoral artery proximal: 79 cm/sec; triphasic waveform Superficial femoral artery mid portion: 114 cm/sec; triphasic waveform Superficial femoral artery distal: 85 cm/sec; triphasic waveform Profunda artery: 104 cm/sec; triphasic waveform Popliteal artery: 50 cm/sec; biphasic waveform Posterior tibial artery: 106 cm/sec; monophasic waveform Anterior tibial artery: 96 cm/sec; triphasic waveform Dorsalis pedis artery: 140 cm/sec; monophasic waveform ADDITIONAL FINDINGS: None. IMPRESSION: Abnormal monophasic waveforms within the left posterior tibial and dorsalis pedis arteries consistent with underlying peripheral vascular disease. Otherwise, lower extremity waveforms are within normal limits and there is no sonographic evidence of hemodynamically significant stenosis identified. Please note that greater sensitivity and specificity can be obtained with pre-and post exercise PVRs with JONNY calculations. Also consider dedicated CTA for further anatomical detail.
--- NOTE | 2016-08-05 15:24 | PN- Att Addend ---
Attending Addendum Attending Brief Note Patient was admitted earlier on today with sepsis secondary to lower extremity cellulitis. She was initially hypotensive but her blood pressure has improved with fluid resuscitation. Due to the chronicity of her wound arterial Dopplers were obtained and showed evidence of peripheral arterial disease. Case was discussed with ID service and recommendations are to continue patient on an IV Unasyn. She has been seen by the podiatry service and is currently in the operating room undergoing debridement of the big toe ulcer. We'll continue on IV Unasyn alone for now. She will require evaluation by the vascular surgery service during this hospitalization.
[2016-08-05 17:00] VITALS: BP 132/68
--- NOTE | 2016-08-05 17:31 | Operative Report ---
Operative/Inv Procedure Report Surgery Date: 08/05/16 Name of Procedure: 1 open incision and drainage deep to the D fashion with exposure of the extensor tendon and tendon sheath multiple sites left foot 2 open partial fourth ray resection left foot 3 intraoperative administration of ankle block anesthesia 4 excisional debridement Pre-Operative Diagnosis: 1 gangrene left fourth toe with open necrotic wound 2 osteomyelitis left foot 3 diabetic peripheral neuropathy Post-Operative Diagnosis: The same Estimated Blood Loss: less than 50ml Surgeon/Control Room Supervisor: JERRY TSE DPM Anesthesia: moderate sedation, block Operative/Procedure Note Note: After obtaining informed consent the patient was brought to the operating room and placed on the operating table in the supine position. The patient isn't securely fastened to the operating table utilizing safety belt. After administration of IV sedation, 10 mL of 0.5% Marcaine plain was infiltrated about the patient's left ankle. Left foot and ankle within scrubbed prepped and draped in usual aseptic manner. Attention was directed to the left foot, where a gangrenous left fourth digit and necrotic were identified. A 15 blade visualized sharply revised skin margins. Dissection was then carried down deep to the D fashion with exposure of the extensor tendon and tendon sheath multiple sites, both proximally and distally. All necrotic nonviable infected tissue sharply evacuated from the wound bed. A racquet-type incision encompassing the distal fourth ray was then carried down to the periosteum which was incised reflected. A sagittal bone saw was utilized performed through and through osteotomy. The distal osseous segment was freed and passed from the operative field. Specimen was sent for both microbiologic and pathologic inspection. Nipple was then irrigated with 3 L of normal sterile saline fissure 50,000 units of bacitracin. Following this, the foot was redraped and the surgeon's top gloves were exchanged for clean gloves. Any bleeding vessels identified were cauterized or ligated as encountered. Nipple was then packed with iodoform and 3-0 nylon retention sutures were placed. The foot was dressed with 4 x 4's Kerlix and Yobani wrap. The patient was noted to tolerate both procedure and anesthesia well and the patient was transported from the operating room to recovery with vital signs stable.
[2016-08-05 19:45] VITALS: BP 142/58
[2016-08-05 22:43] VITALS: BP 147/77
--- NOTE | 2016-08-06 00:20 | Event Note ---
Event Note Event Note: I got a report from the nurse taking care of Kimber regarding her temperatures. Patient spiked temperature of 103.1 at around 7:45 PM and 103.4 at 8 PM. * Advised nurse to give IV Tylenol for fever * 2 sets of blood cultures were ordered * Lactic acid was ordered * I spoke with Chin Lowery MD infectious disease doctor-who recommended to continue the same management as long as patient is clinically stable. Advised to call him back if patient is unstable. * I went and examined the patient-patient was doing good with no complaints except for fevers. She denies any kind of pain. Offers no complaints. Plan IV Tylenol Continued Unasyn 3 g every 6 hours Continue IV fluids Follow-up blood cultures Follow-up lactate Follow-up vitals every 2 hours. The above plan was discussed with Dr. Brian goode.
[2016-08-06 02:11] VITALS: BP 100/68
--- NOTE | 2016-08-06 02:45 | Event Note ---
Event Note Event Note: I was called by the nurse regarding IV access as the patient IV lines were not working on both the arms. According to the nurse, both the floor nurses and ICU nurses tried to place IV line for 14 times however they couldn't get any peripheral line access. * Patient is on IV antibiotics-Unasyn IV 3 g every 6 hours for possible osteomyelitis. * Patient is on IV fluids normal saline 100 mL per hour as she was septic and had a blood pressures were borderline. * As patient is spiking fever, she is getting IV Tylenol as required basis. We planned to place central line to give antibiotics, fluids. The entire plan was discussed with the instrument specialist Dr. Torres. * An attempt to place a central line was made, but aborted assisted during the procedure due to pain. * We planned to do oral augmentin and oral tylinol at that point of time, however finally we got peripheral IV line access-and the patient was started on IV antibiotics and IV fluids.
[2016-08-06 06:31] VITALS: BP 122/84
--- NOTE | 2016-08-06 08:43 | PN- Housestaff ---
CLIFTON ESCOBAR 08/06/16 0843: Subjective Follow-up For: cellulitis ?osteomyelitis Subjective: seen and examined patient. States she is have some pain in b/l legs. Tolerating her diet. Denies fever, shortness of breath, abdominal pain. Review of Systems Constitutional: Reports: fever. Denies: chills, diaphoresis, malaise, weakness, unexplained weight loss. Cardiovascular: Denies: no symptoms, see HPI, chest pain, edema, orthopena, palpitations, peripheral edema, syncope. Respiratory: Denies: cough, hemoptysis, orthopnea, short of breath, sputum production, stridor, wheezing. Objective Last 24 Hrs of Vital Signs/I&O Vital Signs Date Time Temp Pulse Resp B/P B/P Pulse O2 O2 Flow FiO2 Mean Ox Delivery Rate 08/06 0631 98.7 96 20 122/84 96 Room Air 08/06 0211 99.0 102 20 100/68 91 Room Air 08/06 0103 99.9 08/05 2243 102.6 110 18 147/77 93 Room Air 08/05 2140 102.6 08/05 2002 103.4 08/05 194 103.1 116 20 142/58 94 08/05 1700 99.5 96 18 132/68 98 Room Air 08/05 1303 100.0 76 18 115/84 98 Room Air Intake & Output 08/06 1600 08/06 0800 08/06 0000 Intake Total 840 600 Output Total 400 Balance 840 200 Intake, IV 600 300 Intake, Oral 240 300 Output, Urine 400 Physical Exam General Appearance: Alert, Oriented X3, Cooperative, No Acute Distress Cardiovascular: Regular Rate, Normal S1, Normal S2 Lungs: Clear to Auscultation, Normal Air Movement Abdomen: Normal Bowel Sounds, Soft, No Tenderness Extremities: dressing over left foot Current Medications: Current Medications Sig/Esteban Start time Last Medication Dose Route Stop Time Status Admin Acetaminophen 650 MG .STK-MED ONE 08/06 004 DC PO 08/06 45 Acetaminophen 650 MG .STK-MED ONE 08/06 004 DC PO 08/06 004 Acetaminophen 1,000 MG Q6P PRN 08/06 1999 AC 08/05 N/A 1 UNIT IV 2002 Acetaminophen 650 MG Q6P PRN 08/05 199 AC 08/06 PO 005 Acetaminophen 1,000 MG Q6P PRN 08/05 0200 DC IV Albuterol Sulfate 2 PUF Q4P PRN 08/05 0200 AC INH Amoxicillin/ 875 MG ONCE ONE 08/06 0030 CAN Clavulanate Potassium PO 08/06 0031 Ampicillin Sodium/ 3,000 MG Q6 08/05 0615 AC 08/06 Sulbactam Sodium IV 0604 Sodium Chloride 100 ML Atorvastatin Calcium 40 MG 1700 08/05 1700 AC 08/05 PO 1713 Budesonide/ 2 PUF BID 08/05 1000 AC Formoterol Fumarate INH Bupropion HCl 450 MG DAILY 08/05 1000 AC 08/06 PO 1054 Docusate Sodium 100 MG DAILY 08/06 1031 AC PO Fentanyl Citrate 100 MCG .STK-MED ONE 08/05 1323 DC IM 08/05 1324 Fish Oil 1,050 MG DAILY 08/05 1000 AC 08/06 PO 1055 Gabapentin 300 MG BID 08/05 1000 AC 08/06 PO 1054 Hydromorphone HCl 2 MG BID PRN 08/06 1030 AC PO Hydromorphone HCl 2 MG .STK-MED ONE 08/05 1422 DC IM 08/05 1423 Ibuprofen 600 MG Q6P PRN 08/05 0700 AC 08/05 PO 0703 Lamotrigine 200 MG AT BEDTIME 08/05 2200 AC 08/05 PO 2221 Lamotrigine 100 MG QAM 08/05 1000 AC 08/06 PO 1054 Midazolam HCl 2 MG .STK-MED ONE 08/05 1323 DC IM 08/05 1324 Multivitamins 1 TAB DAILY 08/05 1000 AC 08/06 Therapeutic PO 1054 Ondansetron HCl 4 MG Q6P PRN 08/06 1030 AC PO Oxycodone/ 1 TAB Q6P PRN 08/05 0200 DC 08/06 Acetaminophen PO 0604 Polyethylene Glycol 17 GM DAILY 08/06 1031 AC PO Pregabalin 150 MG BID 08/05 1000 AC 08/06 PO 1054 Risperidone 1 MG QPM 08/05 2200 AC 08/05 PO 2221 Senna/Docusate Sodium 2 TAB DAILY 08/06 1031 AC PO Sodium Chloride 1,000 ML .Q10H 08/05 0200 DC 08/05 IV 08/06 0759 1813 Vancomycin HCl 1,000 MG DAILY 08/05 0615 DC 08/05 Sodium Chloride 250 ML IV 0810 Last 24 Hrs of Lab/Matthew Results Last 24 Hrs of Labs/Mics: Laboratory Tests 08/06/16 1045: Lactic Acid Pending 08/06/16 1045: Sodium Pending, Potassium Pending, Chloride Pending, Carbon Dioxide Pending, Anion Gap Pending, BUN Pending, Creatinine Pending, BUN/Creatinine Ratio Pending , Hemoglobin A1c Pending, CBC w Diff Pending, WBC Pending, RBC Pending, Hgb Pending, Hct Pending, MCV Pending, MCH Pending, RDW Pending, Plt Count Pending, MPV Pending, PUBS MCHC Pending 08/05/16 1127: Urinalysis MOD H, Urine Color ORANG H, Urine Clarity HAZY H, Urine pH 6.0, Ur Specific [place] >= 1.030, Urine Protein 100 H, Urine Ketones NEG, Urine Nitrite NEG, Urine Bilirubin NEG, Urine Urobilinogen 0.2, Ur Leukocyte Esterase NEG, Ur Microscopic SEDIMENT EXAMINED, Urine RBC RARE, Urine WBC 5-10 H, Ur Epithelial Cells MOD H, Urine Bacteria FEW H, Urine Mucus MOD H, Urine Hemoglobin NEG, Urine Glucose NEG Microbiology 08/06 105 BLOOD: Blood Culture - ORD 08/06 105 BLOOD: Blood Culture - ORD 08/06 2143 BLOOD: Blood Culture - CAN Cancelled: Cancelled via OE: Per MD Decision 08/06 2143 BLOOD: Blood Culture - RECD 08/05 135 EXTREMITIE: Gross Specimen Examination - RES STAPH AUREUS 08/05 135 EXTREMITIE: Gram Stain - RES 08/05 1127 URINE ROUT: Urine Culture - RES Assessment/Plan Assessment: 61-year-old woman with significant past medical history of COPD, anxiety/ depression, hyperlipidemia, diverticulosis/IBS status post hemicolectomy, idiopathic neuropathy with recurrent osteomyelitis, status post right transmetatarsal amputation, left second toe amputation, previously grown methicillin sensitive staph aureus and Pseudomonas from previous OR cultures, multiple previous soft tissue infections, followed by Dr. Patel and at the wound care center, presented to the hospital emergency department with fever and left foot/fourth toe erythema. Hospital day 1 overnight events noted, tmax 102.6, 1currently s/p, BP stable, saturating on RA. Today's labs pending. POD open partial fourth ray resection left foot seconday to gangrene left fourth toe. Duplex scan reviewed, no change from her outpatient duplex scans per Dr. Osullivan. Will be going back to the OR tommorrow. Prelim Blood cultures from August 04 show no growth. Gross specimen shows Staph aureus. problem list: Cellulitis/? osteomyelitis Anxiety/depression bipolar disorder hyperlipidemia COPD plan: ID and Podiatry on board, appreciate recomendations, On IV unasyn day 2. From a vascular standpoint, no acute intervention required or additional anticoagulation or antiplatelet. Recomending to follow-up as outpatient with Dr. Osullivan. Continue home meds of bupropion, risperidone,abapentin, Lyrica. Will start her home dose of Dilaudid. DVT prophylaxis with heparin full code Problem List: 1. Cellulitis 2. Mood disorder 3. Sepsis Pain Ratin Pain Location: left foot Pain Goal: Pain 4 or less Pain Plan: Will start her home dose of Dilaudid. Tomorrow's Labs & Rationales: bere CAT MD,LUIS 08/06/16 1237: Attending MD Review Statement Attending Statement Attending MD Statement: examined this patient, discuss w/resident/PA/[employer], agreed w/resident/PA/[employer], reviewed EMR data (avail), discussed with nursing, discussed with case mgmt, amended to note Attending Assessment/Plan: Patient seen and examined. Very pleasant and not in any distress. Reports mild pain at the surgical site. Offers no other complaints. She underwent incision and drainage and partial fourth ray resection left foot yesterday. He was afebrile overnight but is currently afebrile and hemodynamically stable. There was difficulty obtaining IV access overnight. Currently the left lower extremities wrapped in surgical dressing. There is no visible discharge. She was also evaluated by the vascular surgery service yesterday due to her abnormal arterial Doppler study. This was apparently compared to outpatient studies and found to be similar. No further intervention is recommended by the vascular surgery at this point in time. Recommendations: -Continue current course of IV antibiotic therapy. -Follow-up while culture reports. -Decision regarding antibiotic duration and type will be determined after evaluating culture reports. -Optimize her pain management participation back on her home dose of Dilaudid. Provided with analgesic therapy for breakthrough pain. Provided with a bowel regimen [id number]. -DVT prophylaxis with subcutaneous heparin.
--- NOTE | 2016-08-06 09:06 | PN- Vascular Surgery ---
Subjective Subjective: sp extensive I and D L foot with open partial fourth ray resection left foot seconday to gangrene left fourth toe with open necrotic wound, osteomyelitis left foot, diabetic peripheral neuropathy. Vascular surgery was consulted to assess vascular flow to the left foot. She is well-known to Dr. Osullivan. Objective Vital Signs and I&Os Vital Signs Date Time Temp Pulse Resp B/P B/P Pulse O2 O2 Flow FiO2 Mean Ox Delivery Rate 08/06 0631 98.7 96 20 122/84 96 Room Air 08/06 0211 99.0 102 20 100/68 91 Room Air 08/06 0103 99.9 08/05 2243 102.6 110 18 147/77 93 Room Air 08/05 2140 102.6 08/05 2002 103.4 08/05 1945 103.1 116 20 142/58 94 08/05 1700 99.5 96 18 132/68 98 Room Air 08/05 1303 100.0 76 18 115/84 98 Room Air Intake & Output 08/06 1600 08/06 0800 08/06 0000 08/05 1600 08/05 0800 08/05 0000 Intake Total 840 600 120 Output Total 400 Balance 840 200 120 Intake, IV 600 300 Intake, Oral 240 300 120 Output, Urine 400 Patient 260 lb 260 lb Weight Weight Reported by Patient Reported by Patient Measurement Method Physical Exam: Well-developed well-nourished no apparent distress. HEENT: Atraumatic, extraocular motion intact Neck: Supple, no lymphadenopathy Respiratory: No respiratory distress Extremities: left foot, dressing in place, toes pink and warm, capillary refill less than 2 seconds. Neuro: Alert and oriented x3 Psych: Mood affect normal, normal memory normal judgment. Skin: Warm and dry, no rash on exposed skin Results Last 48 Hours of Labs: Laboratory Tests 08/05 08/05 1127 0634 Chemistry Sodium (137 - 145 mmol/L) 146 H Potassium (3.5 - 5.1 mmol/L) 4.1 Chloride (98 - 107 mmol/L) 113 H Carbon Dioxide (22 - 30 mmol/L) 21 L Anion Gap (5 - 16) 12 BUN (7 - 17 mg/dL) 20 H Creatinine (0.5 - 1.0 mg/dL) 0.8 Estimated GFR (>60 ml/min) > 60 BUN/Creatinine Ratio (7 - 25 %) 25.0 Hemoglobin A1c (4.2 - 5.8 %) ND Coagulation PT (9.4 - 12.5 SEC) 13.3 H INR (0.90 - 1.19) 1.27 H Hematology CBC w Diff MAN DIFF ORDERED WBC (4.8 - 10.8 /CUMM) 26.9 H RBC (4.20 - 5.40 /CUMM) 4.75 Hgb (12.0 - 16.0 G/DL) 13.9 Hct (37 - 47 %) 41.9 MCV (81.0 - 99.0 FL) 88.2 MCH (27.0 - 31.0 PG) 29.3 RDW (11.5 - 14.5 %) 14.2 Plt Count (130 - 400 /CUMM) 170 MPV (7.4 - 10.4 FL) 9.4 Gran % (42.2 - 75.2 %) 94.5 H Lymphocytes % (20.5 - 51.1 %) 3.2 L Monocytes % (1.7 - 9.3 %) 2.2 Eosinophils % (0 - 5 %) 0.1 Basophils % (0.0 - 2.0 %) 0 L Absolute Granulocytes (1.4 - 6.5 /CUMM) 25.4 H Segmented Neutrophils (42.2 - 75.2 %) 93 H Band Neutrophils (0.0 - 5.0 %) 2 Absolute Lymphocytes (1.2 - 3.4 /CUMM) 0.9 L Lymphocytes (20.5 - 51.1 %) 4 L Monocytes (1.7 - 9.3 %) 1 L Absolute Monocytes (0.10 - 0.60 /CUMM) 0.6 Absolute Eosinophils (0.0 - 0.7 /CUMM) 0 Absolute Basophils (0.0 - 0.2 /CUMM) 0 Platelet Estimate (ADEQUATE) ADEQUATE Normocytic RBCs VERIFIED Normochromic RBCs VERIFIED PUBS MCHC (33.0 - 37.0 G/DL) 33.3 ESR [place] (0 - 20 MM) 24 H Other Body Source Fld Total RBCs Counted (%) 100 Urines Urinalysis MOD H Urine Color (YEL,AMB,STR) ORANG H Urine Clarity (CLEAR) HAZY H Urine pH (5.0 - 8.0) 6.0 Ur Specific [place] (1.001 - 1.035) >= 1.030 Urine Protein (NEG,<30 MG/DL) 100 H Urine Ketones (NEG) NEG Urine Nitrite (NEG) NEG Urine Bilirubin (NEG) NEG Urine Urobilinogen (0.1 - 1.0 EU/dl) 0.2 Ur Leukocyte Esterase (NEG) NEG Ur Microscopic SEDIMENT EXAMINED Urine RBC (0 - 5 /HPF) RARE Urine WBC (0 - 2 /HPF) 5-10 H Ur Epithelial Cells (NONE,FEW) MOD H Urine Bacteria (NEG/NONE) FEW H Urine Mucus (FEW,NONE) MOD H Urine Hemoglobin (NEG) NEG Urine Glucose (N MG/DL) NEG 08/04 08/04 08/04 2338 2246 2221 Chemistry Sodium (137 - 145 mmol/L) 144 Potassium (3.5 - 5.1 mmol/L) 4.1 Chloride (98 - 107 mmol/L) 107 Carbon Dioxide (22 - 30 mmol/L) 21 L Anion Gap (5 - 16) 15 BUN (7 - 17 mg/dL) 20 H Creatinine (0.5 - 1.0 mg/dL) 0.9 Estimated GFR (>60 ml/min) > 60 BUN/Creatinine Ratio (7 - 25 %) 22.2 Glucose (65 - 99 mg/dL) 108 H Lactic Acid (0.7 - 2.1 mmol/L) Cancelled 1.6 Calcium (8.4 - 10.2 mg/dL) 9.3 Total Bilirubin (0.2 - 1.3 mg/dL) 0.8 AST (14 - 36 U/L) 20 ALT (9 - 52 U/L) 39 Alkaline Phosphatase (<127 U/L) 106 Total Protein (6.3 - 8.2 g/dL) 6.9 Albumin (3.5 - 5.0 g/dL) 4.3 Globulin (1.9 - 4.2 gm/dL) 2.6 Albumin/Globulin Ratio (1.1 - 2.2 %) 1.7 Hematology CBC w Diff MAN DIFF ORDERED WBC (4.8 - 10.8 /CUMM) 28.8 H RBC (4.20 - 5.40 /CUMM) 4.65 Hgb (12.0 - 16.0 G/DL) 13.4 Hct (37 - 47 %) 40.3 MCV (81.0 - 99.0 FL) 86.7 MCH (27.0 - 31.0 PG) 28.9 RDW (11.5 - 14.5 %) 14.2 Plt Count (130 - 400 /CUMM) 221 MPV (7.4 - 10.4 FL) 8.6 Gran % (42.2 - 75.2 %) 92.7 H Lymphocytes % (20.5 - 51.1 %) 3.5 L Monocytes % (1.7 - 9.3 %) 3.4 Eosinophils % (0 - 5 %) 0.3 Basophils % (0.0 - 2.0 %) 0.1 Absolute Granulocytes (1.4 - 6.5 /CUMM) 26.7 H Segmented Neutrophils (42.2 - 75.2 %) 88 H Band Neutrophils (0.0 - 5.0 %) 1 Absolute Lymphocytes (1.2 - 3.4 /CUMM) 1.0 L Lymphocytes (20.5 - 51.1 %) 7 L Monocytes (1.7 - 9.3 %) 2 Absolute Monocytes (0.10 - 0.60 /CUMM) 1.0 H Eosinophils (0 - 5.0 %) 2 Absolute Eosinophils (0.0 - 0.7 /CUMM) 0.1 Absolute Basophils (0.0 - 0.2 /CUMM) 0 Platelet Estimate (ADEQUATE) ADEQUATE Normochromic RBCs VERIFIED Poikilocytosis 1+ Stomatocytes 1+ PUBS MCHC (33.0 - 37.0 G/DL) 33.3 08/04 2037 Urines Urine Color Cancelled Urine Clarity Cancelled Urine pH Cancelled Ur Specific [place] Cancelled Urine Protein Cancelled Urine Ketones Cancelled Urine Nitrite Cancelled Urine Bilirubin Cancelled Urine Urobilinogen Cancelled Ur Leukocyte Esterase Cancelled Ur Microscopic Cancelled Urine Hemoglobin Cancelled Urine Glucose Cancelled Recent Imaging Studies: PATIENT: TONEY HDZ PRESENT AGE: 61 PATIENT ACCOUNT NO: [id number] : 53 LOCATION: [facility] ORDERING PHYSICIAN: CLYDE HARVEY MD SERVICE DATE: 08/05/16 EXAM TYPE: US - US-BILAT LOW EXTR ARTERIAL DOP EXAMINATION: US-BILAT LOW EXTREMITY ARTERIAL DOPPLER CLINICAL INFORMATION: 61-year-old female with peripheral arterial disease, recurrent m the bones with poor healing osteomyelitis. COMPARISON: None TECHNIQUE: Real-time ultrasound and Doppler techniques (integrating B-mode 2-D vascular images, Doppler spectral analysis and color flow Doppler imaging) were utilized to interrogate the lower extremities. Evaluation is somewhat limited secondary to patient body habitus. FINDINGS: Right lower extremity: Common femoral artery: 135 cm/sec; triphasic waveform Superficial femoral artery proximal: 127 cm/sec; triphasic waveform Superficial femoral artery mid portion: 104 cm/sec; triphasic waveform Superficial femoral artery distal: 111 cm/sec; triphasic waveform Profunda artery: 88 cm/sec; triphasic waveform Popliteal artery: 85 cm/sec; triphasic waveform Posterior tibial artery: 78 cm/sec; triphasic waveform Anterior tibial artery: 70 cm/sec; triphasic waveform Dorsalis pedis artery: 82 cm/sec; biphasic waveform Left lower extremity: Common femoral artery: 138 cm/sec; triphasic waveform Superficial femoral artery proximal: 79 cm/sec; triphasic waveform Superficial femoral artery mid portion: 114 cm/sec; triphasic waveform Superficial femoral artery distal: 85 cm/sec; triphasic waveform Profunda artery: 104 cm/sec; triphasic waveform Popliteal artery: 50 cm/sec; biphasic waveform Posterior tibial artery: 106 cm/sec; monophasic waveform Anterior tibial artery: 96 cm/sec; triphasic waveform Dorsalis pedis artery: 140 cm/sec; monophasic waveform ADDITIONAL FINDINGS: None. IMPRESSION: Abnormal monophasic waveforms within the left posterior tibial and dorsalis pedis arteries consistent with underlying peripheral vascular disease. Otherwise, lower extremity waveforms are within normal limits and there is no sonographic evidence of hemodynamically significant stenosis identified. Please note that greater sensitivity and specificity can be obtained with pre-and post exercise PVRs with JONNY calculations. Also consider dedicated CTA for further anatomical detail. DICTATED BY: ELIAN HERNANDEZ DO DATE/TIME DICTATED:08/05/161204 GOLF TEACHER:CHIQUITA Assessment/Plan Assessment/Plan Duplex scan reviewed, no change from her outpatient duplex scans per Dr. Osullivan. From a vascular standpoint there is no acute intervention required. She does not need any additional anticoagulation or antiplatelet. She may follow-up in the office as outpatient in the next few weeks, discussed with Dr. Osullivan Core Measures/Miscellaneous Venous Thromboembolism VTE Risk Factors: Age > 40, Surgery VTE Contraindications: No Contraindications VTE Diagnosis: No VTE Type: NONE VTE Confirmed by (Test): NONE Beta Jose Is Beta Jose a Home Med? No Antibiotics Is Patient on Antibiotics? Yes
[2016-08-06 11:12] LABS: ABSOLUTE EOSINOPHIL COUNT 0.1 /CUMM (0.0-0.7); ABSOLUTE LYMPH COUNT 1.7 /CUMM (1.2-3.4); EOSINOPHIL % 0.9 % (0-5); WHITE BLOOD CELL COUNT 14.6 /CUMM (4.8-10.8)
[2016-08-06 11:32] LABS: ABSOLUTE BASOPHIL COUNT 0 /CUMM (0.0-0.2); ABSOLUTE GRANULOCYTE CT 12.2 /CUMM (1.4-6.5); ABSOLUTE MONOCYTE COUNT 0.5 /CUMM (0.10-0.60); BASOPHIL % 0.2 % (0.0-2.0); MEAN CORPUSCULAR HGB 29.2 PG (27.0-31.0); MEAN CORPUSCULAR HGB CONC 33.2 G/DL (33.0-37.0); MEAN CORPUSCULAR VOLUME 87.9 FL (81.0-99.0); MEAN PLATELET VOLUME 9.3 FL (7.4-10.4); PLATELET COUNT 171 /CUMM (130-400); RBC DISTRIBUTION WIDTH 14.3 % (11.5-14.5); RED BLOOD CELL CT 3.58 /CUMM (4.20-5.40)
[2016-08-06 11:34] LABS: HEMATOCRIT 31.5 % (37-47)
[2016-08-06 12:21] LABS: GRANULOCYTE % 84.1 % (42.2-75.2)
--- NOTE | 2016-08-06 14:18 | PN- Infect Dx ---
Subjective Subjective: MAXIMUM TEMPERATURE 103.4. She notes mild discomfort in her left foot. Objective Last 24 Hrs of Vital Signs/I&O Vital Signs Date Time Temp Pulse Resp B/P B/P Pulse O2 O2 Flow FiO2 Mean Ox Delivery Rate 08/06 630 98.7 96 20 122/84 96 Room Air 08/06 0211 99.0 102 20 100/68 91 Room Air 08/06 0103 99.9 08/05 2243 102.6 110 18 147/77 93 Room Air 08/05 2140 102.6 08/05 2002 103.4 08/05 1945 103.1 116 20 142/58 94 08/05 1700 99.5 96 18 132/68 98 Room Air Intake & Output 08/06 1600 08/06 0800 08/06 0000 Intake Total 840 600 Output Total 400 Balance 840 200 Intake, IV 600 300 Intake, Oral 240 300 Output, Urine 400 Physical Exam Other Physical Findings: She appears comfortable in no acute distress Extremities left foot dressing intact Results Last 24 Hours of Lab Results: Laboratory Tests 08/06 08/06 1045 1045 Chemistry Sodium (137 - 145 mmol/L) 142 Potassium (3.5 - 5.1 mmol/L) 3.6 Chloride (98 - 107 mmol/L) 111 H Carbon Dioxide (22 - 30 mmol/L) 23 Anion Gap (5 - 16) 9 BUN (7 - 17 mg/dL) 15 Creatinine (0.5 - 1.0 mg/dL) 0.7 Estimated GFR (>60 ml/min) > 60 BUN/Creatinine Ratio (7 - 25 %) 21.4 Hemoglobin A1c (4.2 - 5.8 %) 5.9 H Lactic Acid (0.7 - 2.1 mmol/L) 1.0 Hematology CBC w Diff NO MAN DIFF REQ WBC (4.8 - 10.8 /CUMM) 14.6 H RBC (4.20 - 5.40 /CUMM) 3.58 L Hgb (12.0 - 16.0 G/DL) 10.5 L Hct (37 - 47 %) 31.5 L MCV (81.0 - 99.0 FL) 87.9 MCH (27.0 - 31.0 PG) 29.2 RDW (11.5 - 14.5 %) 14.3 Plt Count (130 - 400 /CUMM) 171 MPV (7.4 - 10.4 FL) 9.3 Gran % (42.2 - 75.2 %) 84.1 H Lymphocytes % (20.5 - 51.1 %) 11.3 L Monocytes % (1.7 - 9.3 %) 3.5 Eosinophils % (0 - 5 %) 0.9 Basophils % (0.0 - 2.0 %) 0.2 Absolute Granulocytes (1.4 - 6.5 /CUMM) 12.2 H Absolute Lymphocytes (1.2 - 3.4 /CUMM) 1.7 Absolute Monocytes (0.10 - 0.60 /CUMM) 0.5 Absolute Eosinophils (0.0 - 0.7 /CUMM) 0.1 Absolute Basophils (0.0 - 0.2 /CUMM) 0 PUBS MCHC (33.0 - 37.0 G/DL) 33.2 Last 24 Hours of Matthew Results: Blood cultures August 04 negative Blood cultures August 06 pending OR culture left fourth toe bone August 05 positive for Staph aureus sensitivities pending Urine culture August 05 negative Recent Imaging Studies: Arterial Dopplers August 05 reveal abnormal monophasic waveforms within the left posterior tibial and dorsalis pedal arteries consistent with underlying peripheral vascular disease Assessment/Plan Impression: Stable status post open partial fourth ray resection of the left foot yesterday for gangrene and osteomyelitis, with preliminary OR culture positive for Staph aureus. She was again febrile last night postoperatively but her white blood cell count has decreased on empiric treatment with Unasyn, which can be continued pending final OR cultures. She is scheduled for a return to the OR in the a.m. for further debridement. The chronic left great toe plantar ulcer may warrant further evaluation. The x-ray did not suggest osteomyelitis in this area and the ulcer apparently was not felt to extend to any significant level upon evaluation in the OR. Vascular surgery evaluation noted, with no plans for intervention at this time. Suggestion: 1. Await return to the OR in the a.m. 2. Follow-up final OR culture 3. Continue Unasyn pending above
[2016-08-06 19:20] VITALS: BP 124/70
[2016-08-06 22:02] VITALS: BP 124/72
--- NOTE | 2016-08-07 06:51 | PN- Housestaff ---
CLIFTON ESCOBAR 08/07/16 0650: Subjective Follow-up For: cellulitis Subjective: seen and examined patient, offers no complaints, states her pain is a 4 and is manageable. Denies fevers, chills, shortness of breath. A secondary peripheral line blew. She has one IV access. Review of Systems Constitutional: Denies: chills, diaphoresis, fever, malaise, weakness, unexplained weight loss. Cardiovascular: Denies: chest pain, edema, orthopena, palpitations, peripheral edema, syncope. Respiratory: Denies: cough, hemoptysis, orthopnea, short of breath, sputum production, stridor, wheezing. Objective Last 24 Hrs of Vital Signs/I&O Vital Signs Date Time Temp Pulse Resp B/P B/P Pulse O2 O2 Flow FiO2 Mean Ox Delivery Rate 08/07 0655 98.7 85 18 114/72 94 Room Air 08/06 2202 99.5 100 20 124/72 94 Room Air 08/07 1999 99.4 08/06 1920 99.8 102 20 124/70 94 Room Air Intake & Output 08/07 0800 08/07 0000 08/06 1600 Intake Total 0 240 840 Output Total 800 700 500 Balance -800 -460 340 Intake, Oral 0 240 840 Number 1 Bowel Movements Output, Urine 800 700 500 Physical Exam General Appearance: Alert, Oriented X3, Cooperative, No Acute Distress Cardiovascular: Regular Rate, Normal S1, Normal S2 Lungs: Clear to Auscultation, Normal Air Movement Abdomen: Normal Bowel Sounds, Soft, No Tenderness Extremities: dressing over left foot. Current Medications: Current Medications Sig/Esteban Start time Last Medication Dose Route Stop Time Status Admin Acetaminophen 1,000 MG .STK-MED ONE 08/06 1950 DC IV 08/07 1951 Acetaminophen 1,000 MG Q6P PRN 08/06 1999 AC 08/06 N/A 1 UNIT IV 1957 Acetaminophen 650 MG Q6P PRN 08/050 AC 08/06 PO 0056 Albuterol Sulfate 2 PUF Q4P PRN 08/05 0200 AC INH Ampicillin Sodium/ 3,000 MG Q6 08/05 0615 AC 08/07 Sulbactam Sodium IV 0538 Sodium Chloride 100 ML Atorvastatin Calcium 40 MG 1700 08/05 1700 AC 05/04 PO 1815 Budesonide/ 2 PUF BID 08/05 1000 AC Formoterol Fumarate INH Bupropion HCl 450 MG DAILY 08/05 1000 AC 08/06 PO 1054 Docusate Sodium 100 MG DAILY 08/06 1031 AC PO Fish Oil 1,050 MG DAILY 08/05 1000 AC 08/06 PO 1055 Gabapentin 300 MG BID 08/05 1000 AC 08/06 PO 2142 Hydromorphone HCl 2 MG BID PRN 08/06 1030 AC 08/06 PO 1322 Ibuprofen 600 MG Q6P PRN 08/05 0700 AC 08/05 PO 0703 Lamotrigine 200 MG AT BEDTIME 08/05 2200 AC 08/06 PO 2142 Lamotrigine 100 MG QAM 08/05 1000 AC 08/06 PO 1054 Multivitamins 1 TAB DAILY 08/05 1000 AC 08/06 Therapeutic PO 1054 Ondansetron HCl 4 MG Q6P PRN 08/06 1030 AC PO Oxycodone/ 1 TAB Q6P PRN 08/05 0200 DC 08/06 Acetaminophen PO 0604 Polyethylene Glycol 17 GM DAILY 08/06 1031 AC PO Pregabalin 150 MG BID 08/05 1000 AC 08/06 PO 2142 Risperidone 1 MG QPM 08/05 2200 AC 08/06 PO 2142 Senna/Docusate Sodium 2 TAB DAILY 08/06 1031 AC PO Last 24 Hrs of Lab/Matthew Results Last 24 Hrs of Labs/Mics: Laboratory Tests 08/07/16 0732: CBC w Diff Pending, WBC Pending, RBC Pending, Hgb Pending, Hct Pending, MCV Pending, MCH Pending, RDW Pending, Plt Count Pending, MPV Pending, PUBS MCHC Pending 08/06/16 1045: Lactic Acid 1.0 08/06/16 1045: Anion Gap 9, Estimated GFR > 60, BUN/Creatinine Ratio 21.4, Hemoglobin A1c 5.9 H, CBC w Diff NO MAN DIFF REQ, RBC 3.58 L, MCV 87.9, MCH 29.2, RDW 14.3, MPV 9.3, Gran % 84.1 H, Lymphocytes % 11.3 L, Monocytes % 3.5, Eosinophils % 0.9, Basophils % 0.2, Absolute Granulocytes 12.2 H, Absolute Lymphocytes 1.7, Absolute Monocytes 0.5, Absolute Eosinophils 0.1, Absolute Basophils 0, PUBS MCHC 33.2 Microbiology 08/06 1051 BLOOD: Blood Culture - RECD 08/06 1025 BLOOD: Blood Culture - CAN Cancelled: RECEIVED IN ERROR 08/06 1025 BLOOD: Blood Culture - RECD Assessment/Plan Assessment: 61-year-old woman with significant past medical history of COPD, anxiety/ depression, hyperlipidemia, diverticulosis/IBS status post hemicolectomy, idiopathic neuropathy with recurrent osteomyelitis, status post right transmetatarsal amputation, left second toe amputation, previously grown methicillin sensitive staph aureus and Pseudomonas from previous OR cultures, multiple previous soft tissue infections, followed by Dr. Patel and at the wound care center, presented to the hospital emergency department with fever and left foot/fourth toe erythema. Hospital day 2 tmax 99.4, BP stable, saturating 94% on RA. White count trending, this morning labs pending. POD 2, open partial fourth ray resection left foot seconday to gangrene left fourth toe. Gross specimen Now growing MRSA. problem list: Cellulitis/? osteomyelitis Anxiety/depression bipolar disorder hyperlipidemia COPD plan: currently NPO for procedure later today. ID and Podiatry on board, appreciate recomendations, On IV unasyn day 3. Will be switched to Vancomycin. From a vascular standpoint, no acute intervention required or additional anticoagulation or antiplatelet. Recomending to follow-up as outpatient with Dr. Osullivan. Continue home meds of bupropion, risperidone,abapentin, Lyrica. Will start her home dose of Dilaudid. DVT prophylaxis on hold for surgery today, refusing mechanical alps full code Problem List: 1. Cellulitis 2. Mood disorder 3. Pain management 4. Peripheral neuropathy Pain Ratin Pain Location: b/l lower extremities Pain Goal: Pain 4 or less Pain Plan: current regimen Tomorrow's Labs & Rationales: NEETA WARNER MD 08/07/16 1505: Attending MD Review Statement Attending Statement Attending MD Statement: examined this patient, discuss w/resident/PA/PROPERTY STAFF ACCOUNTANT, agreed w/resident/PA/PROPERTY STAFF ACCOUNTANT, reviewed EMR data (avail) Attending Assessment/Plan: Pain is improved today. Patient scheduled to go to OR for revision and closure. Wound culture growing mRSA. Afebrile, stable vitals, labs reviewed. Plan - Discontinue Unsayn - Start Vancomycin - Follow cultures - Follow ID and podiatry recommendations - Continue home medications - DVT PPx
[2016-08-07 06:55] VITALS: BP 114/72
[2016-08-07 08:46] LABS: ABSOLUTE BASOPHIL COUNT 0 /CUMM (0.0-0.2); ABSOLUTE EOSINOPHIL COUNT 0.4 /CUMM (0.0-0.7); ABSOLUTE GRANULOCYTE CT 10.9 /CUMM (1.4-6.5); ABSOLUTE LYMPH COUNT 2.4 /CUMM (1.2-3.4); ABSOLUTE MONOCYTE COUNT 0.4 /CUMM (0.10-0.60); BASOPHIL % 0.2 % (0.0-2.0); EOSINOPHIL % 2.6 % (0-5); GRANULOCYTE % 77.4 % (42.2-75.2); HEMATOCRIT 32.7 % (37-47); MEAN CORPUSCULAR HGB 29.6 PG (27.0-31.0); MEAN CORPUSCULAR HGB CONC 33.6 G/DL (33.0-37.0); MEAN CORPUSCULAR VOLUME 88.1 FL (81.0-99.0); MEAN PLATELET VOLUME 9.8 FL (7.4-10.4); RBC DISTRIBUTION WIDTH 14.4 % (11.5-14.5); RED BLOOD CELL CT 3.71 /CUMM (4.20-5.40); WHITE BLOOD CELL COUNT 14.1 /CUMM (4.8-10.8)
[2016-08-07 10:22] LABS: PLATELET COUNT 163 /CUMM (130-400)
--- NOTE | 2016-08-07 10:51 | PN- Infect Dx ---
Subjective Subjective: Afebrile. She notes some discomfort in the left foot. Objective Last 24 Hrs of Vital Signs/I&O Vital Signs Date Time Temp Pulse Resp B/P B/P Pulse O2 O2 Flow FiO2 Mean Ox Delivery Rate 08/07 0555 98.7 85 18 114/72 94 Room Air 08/06 2202 99.5 100 20 124/72 94 Room Air 08/06 2000 99.4 05 1920 99.8 102 20 124/70 94 Room Air Intake & Output 08/07 1600 08/07 0800 08/07 0000 Intake Total 0 240 Output Total 800 700 Balance -800 -460 Intake, Oral 0 240 Number 1 Bowel Movements Output, Urine 800 700 Physical Exam Other Physical Findings: She appears comfortable in no acute distress Extremities left foot dressing intact; plantar ulcer over the first metatarsal unchanged, with no surrounding inflammation; right BKA stump bogginess unchanged , with minimal erythema, nontender to palpation Results Last 24 Hours of Lab Results: Laboratory Tests 08/07 08/06 0732 1045 Chemistry Lactic Acid (0.7 - 2.1 mmol/L) 1.0 Hematology CBC w Diff NO MAN DIFF REQ WBC (4.8 - 10.8 /CUMM) 14.1 H RBC (4.20 - 5.40 /CUMM) 3.71 L Hgb (12.0 - 16.0 G/DL) 11.0 L Hct (37 - 47 %) 32.7 L MCV (81.0 - 99.0 FL) 88.1 MCH (27.0 - 31.0 PG) 29.6 RDW (11.5 - 14.5 %) 14.4 Plt Count (130 - 400 /CUMM) 163 MPV (7.4 - 10.4 FL) 9.8 Gran % (42.2 - 75.2 %) 77.4 H Lymphocytes % (20.5 - 51.1 %) 16.9 L Monocytes % (1.7 - 9.3 %) 2.9 Eosinophils % (0 - 5 %) 2.6 Basophils % (0.0 - 2.0 %) 0.2 Absolute Granulocytes (1.4 - 6.5 /CUMM) 10.9 H Absolute Lymphocytes (1.2 - 3.4 /CUMM) 2.4 Absolute Monocytes (0.10 - 0.60 /CUMM) 0.4 Absolute Eosinophils (0.0 - 0.7 /CUMM) 0.4 Absolute Basophils (0.0 - 0.2 /CUMM) 0 PUBS MCHC (33.0 - 37.0 G/DL) 33.6 05/04 1045 Chemistry Sodium (137 - 145 mmol/L) 142 Potassium (3.5 - 5.1 mmol/L) 3.6 Chloride (98 - 107 mmol/L) 111 H Carbon Dioxide (22 - 30 mmol/L) 23 Anion Gap (5 - 16) 9 BUN (7 - 17 mg/dL) 15 Creatinine (0.5 - 1.0 mg/dL) 0.7 Estimated GFR (>60 ml/min) > 60 BUN/Creatinine Ratio (7 - 25 %) 21.4 Hemoglobin A1c (4.2 - 5.8 %) 5.9 H Hematology CBC w Diff NO MAN DIFF REQ WBC (4.8 - 10.8 /CUMM) 14.6 H RBC (4.20 - 5.40 /CUMM) 3.58 L Hgb (12.0 - 16.0 G/DL) 10.5 L Hct (37 - 47 %) 31.5 L MCV (81.0 - 99.0 FL) 87.9 MCH (27.0 - 31.0 PG) 29.2 RDW (11.5 - 14.5 %) 14.3 Plt Count (130 - 400 /CUMM) 171 MPV (7.4 - 10.4 FL) 9.3 Gran % (42.2 - 75.2 %) 84.1 H Lymphocytes % (20.5 - 51.1 %) 11.3 L Monocytes % (1.7 - 9.3 %) 3.5 Eosinophils % (0 - 5 %) 0.9 Basophils % (0.0 - 2.0 %) 0.2 Absolute Granulocytes (1.4 - 6.5 /CUMM) 12.2 H Absolute Lymphocytes (1.2 - 3.4 /CUMM) 1.7 Absolute Monocytes (0.10 - 0.60 /CUMM) 0.5 Absolute Eosinophils (0.0 - 0.7 /CUMM) 0.1 Absolute Basophils (0.0 - 0.2 /CUMM) 0 PUBS MCHC (33.0 - 37.0 G/DL) 33.2 Last 24 Hours of Matthew Results: Blood cultures 2 August 2 negative Blood cultures August 06 negative OR culture left fourth toe bone August 05 positive for MRSA Assessment/Plan Impression: Stable status post open partial fourth ray resection of the left foot 2 days ago for gangrene and osteomyelitis, with OR culture positive for MRSA. She has defervesced and white blood cell count has decreased on Unasyn, likely secondary to the removal of the toe, but, given the culture results, her antibiotics will need to be changed. Have discussed with Podiatry, who does not feel that she has residual osteomyelitis of the left foot; therefore she should not require a prolonged course of IV antibiotics. She is scheduled for a return to the OR later today for further debridement. The chronic left great toe plantar ulcer may warrant further evaluation, but it was not felt to probe deeply in the OR and the x-ray did not suggest osteomyelitis in this area. Suggestion: 1. Await return to the OR later today 2. Discontinue Unasyn 3. Begin Vancomycin 1.25 g IV every 12 hours, with eventual change to Bactrim DS to complete a one-week course of antibiotics postop if there is not felt to be any residual osteomyelitis
[2016-08-07 14:33] VITALS: BP 126/82
--- NOTE | 2016-08-07 21:24 | Operative Report ---
Operative/Inv Procedure Report Surgery Date: 08/07/16 Name of Procedure: 1 open incision and drainage deep to the D fashion with exposure of the extensor and flexor tendon and tendon sheath multiple sites left foot 2 delayed primary closure of open surgical wound with local random advancement flap 3 revisional partial fourth ray resection left foot 4 intraoperative administration of ankle block anesthesia 5 excisional debridement Pre-Operative Diagnosis: 1 open necrotic wound left foot 2 osteomyelitis left foot 3 diabetic peripheral neuropathy Post-Operative Diagnosis: The same Estimated Blood Loss: less than 50ml Surgeon/Statistics Manager: JERRY AMOR DPM Anesthesia: moderate sedation, block Operative/Procedure Note Note: After obtaining informed consent the patient was brought to the operating room and placed on the operating table in the supine position. The patient was then securely fastened to the operating table utilizing safety belt. After administration of IV sedation, 10 mL of 0.5% Marcaine plain was infiltrated about the patient's left ankle. Left foot and ankle within scrubbed prepped and draped in usual aseptic manner. Attention directed to the left foot, where a large full-thickness necrotic was identified. By skin margins. Dissection was then carried down deep to the D fashion with exposure of the extensor and flexor tendon and tendon sheath multiple sites, both proximally and distally. All necrotic nonviable infected tissue sharply evacuated from the wound bed. Carried down to the capture structures at the metatarsophalangeal joint these were incised reflected. The distal osseous segment was freed and passed from the operative field. The specimen was sent for pathologic inspection. Nipple was then irrigated with 3 L of normal sterile saline infused with 50,000 units of bacitracin. Following this the foot was redraped and surgeon's top pleasure changed clean gloves. Any bleeding vessels identified were cauterized or ligated as encountered. A dorsal lateral flap was then developed with undermining, mobilization and advancement of the adjacent tissues. The deep side of the flap was held centrally with 3-0 Vicryl. Subtenons tissues reapproximated 4-0 Vicryl and the skin is reapproximated 4-0 nylon. The incision was dressed with Xeroform 4 x 4's Kerlix and Yobani wrap. The patient was noted to tolerate both procedure and anesthesia well and the patient was transported from the operating room to recovery with vital signs stable best assess intact to both the dorsal medial dorsal lateral flaps.
[2016-08-07 22:00] VITALS: BP 122/78
[2016-08-08 07:20] VITALS: BP 111/70
--- NOTE | 2016-08-08 08:15 | PN- Housestaff ---
CLIFTON ESCOBAR 08/08/16 0815: Subjective Follow-up For: cellulitis Subjective: seen and examined patient, states she had two episodes nonbloody diarrhea. endorses some mild cramping. Denies fevers, chest pain and states that her pain is well controlled. Review of Systems Constitutional: Denies: chills, diaphoresis, fever, malaise, weakness, unexplained weight loss. Cardiovascular: Denies: chest pain, edema, orthopena, palpitations, peripheral edema, syncope. Respiratory: Denies: cough, hemoptysis, orthopnea, short of breath, sputum production, stridor, wheezing. Gastrointestinal: Reports: diarrhea. Objective Last 24 Hrs of Vital Signs/I&O Vital Signs Date Time Temp Pulse Resp B/P B/P Pulse O2 O2 Flow FiO2 Mean Ox Delivery Rate 08/08 0720 97.5 83 20 111/70 95 Room Air 08/07 2200 98.6 90 18 122/78 94 Room Air 08/07 1433 98.3 81 20 126/82 94 Room Air Intake & Output 08/08 1600 08/08 0800 08/08 0000 Intake Total 370 720 Output Total 300 Balance 70 720 Intake, IV 250 600 Intake, Oral 120 120 Output, Urine 300 Physical Exam General Appearance: Alert, Oriented X3, Cooperative, No Acute Distress Cardiovascular: Regular Rate, Normal S1, Normal S2 Lungs: Clear to Auscultation, Normal Air Movement Abdomen: hyperactive bowel sounds, with tenderness to palpation in lower abdomen Extremities: dressing over left foot. Current Medications: Current Medications Sig/Esteban Start time Last Medication Dose Route Stop Time Status Admin Acetaminophen 1,000 MG Q6P PRN 08/05 2000 AC 08/08 N/A 1 UNIT IV 1027 Acetaminophen 650 MG Q6P PRN 08/05 0200 AC 08/06 PO 0056 Albuterol Sulfate 2 PUF Q4P PRN 08/05 0200 AC INH Atorvastatin Calcium 40 MG 1700 08/05 1700 AC 08/07 PO 1730 Budesonide/ 2 PUF BID 08/05 1000 AC Formoterol Fumarate INH Bupropion HCl 450 MG DAILY 08/05 1000 AC 08/08 PO 0907 Docusate Sodium 100 MG DAILY 08/06 1031 AC PO Fentanyl Citrate 100 MCG .STK-MED ONE 08/07 193 DC IM 05/05 1940 Fish Oil 1,050 MG DAILY 08/05 1000 AC 08/08 PO 0908 Gabapentin 300 MG BID 08/05 1000 AC 08/08 PO 0908 Heparin Sodium 5,000 UNIT Q8 08/08 1000 AC 08/08 (Porcine) SC 1342 Hydromorphone HCl 2 MG .STK-MED ONE 08/07 2137 DC IM 08/07 213 Hydromorphone HCl 2 MG BID PRN 08/06 1030 AC 08/08 PO 0724 Ibuprofen 600 MG Q6P PRN 08/05 0700 AC 08/05 PO 0703 Lamotrigine 200 MG AT BEDTIME 08/05 2200 AC 08/07 PO 2241 Lamotrigine 100 MG QAM 08/05 1000 AC 08/08 PO 0909 Loperamide HCl 2 MG Q6P PRN 08/08 0930 AC 08/08 PO 1342 Meperidine HCl 50 MG .STK-MED ONE 08/07 2212 DC IM 08/07 221 Midazolam HCl 2 MG .STK-MED ONE 08/07 1939 DC IM 08/07 1940 Multivitamins 1 TAB DAILY 08/05 1000 AC 08/08 Therapeutic PO 0907 Ondansetron HCl 4 MG Q6P PRN 08/06 1030 AC PO Patient Medication 1 ED .STK-MED ONE 08/07 1418 DC Teaching ED 08/07 1419 Polyethylene Glycol 17 GM DAILY 08/06 1031 AC PO Pregabalin 150 MG BID 08/05 1000 AC 08/08 PO 0912 Risperidone 1 MG QPM / 2200 AC 08/07 PO 2241 Senna/Docusate Sodium 2 TAB DAILY 08/06 1031 AC 08/08 PO 0907 Sodium Chloride 1,000 ML .[id number] 08/07 1445 DC 08/07 IV 08/08 0404 1453 Vancomycin HCl 1,250 MG Q12H 08/07 1400 AC 08/08 Sodium Chloride 250 ML IV 1342 Last 24 Hrs of Lab/Matthew Results Last 24 Hrs of Labs/Mics: Microbiology 08/09 919 STOOL: Clostridium difficile Toxin A & B - RECD Assessment/Plan Assessment: 61-year-old woman with significant past medical history of COPD, anxiety/ depression, hyperlipidemia, diverticulosis/IBS status post hemicolectomy, idiopathic neuropathy with recurrent osteomyelitis, status post right transmetatarsal amputation, left second toe amputation, previously grown methicillin sensitive staph aureus and Pseudomonas from previous OR cultures, multiple previous soft tissue infections, followed by Dr. Patel and at the wound care center, presented to the hospital emergency department with fever and left foot/fourth toe erythema. Hospital day 3 afebrile BP stable, saturating 985% on RA. POD 2 open partial fourth ray resection left foot seconday to gangrene left fourth toe and POD 1 delayed primary closure of open surgical wound Gross specimen growing MRSA. She is complaining of 2 episodes of diarrhea early in the morning. problem list: Cellulitis/? osteomyelitis Anxiety/depression bipolar disorder hyperlipidemia COPD Diarrhea plan: ID and Podiatry on board, appreciate recomendations, On IV Vancomycin. C. difficile sent From a vascular standpoint, no acute intervention required or additional anticoagulation or antiplatelet. Recomending to follow-up as outpatient with Dr. Osullivan. Continue home meds of bupropion, risperidone,abapentin, Lyrica. Will start her home dose of Dilaudid. DVT prophylaxis on hold for surgery today, refusing mechanical alps full code Problem List: 1. Cellulitis 2. Mood disorder Pain Ratin Pain Location: na Pain Goal: Pain 4 or less Pain Plan: Current regimen Tomorrow's Labs & Rationales: cbc STEPHANIA ABEBE,LUIS 08/08/16 1330: Attending MD Review Statement Attending Statement Attending MD Statement: examined this patient, discuss w/resident/PA/NURSE TECHNICIAN, agreed w/resident/PA/NURSE TECHNICIAN, reviewed EMR data (avail), discussed with nursing, discussed with case mgmt, amended to note Attending Assessment/Plan: Patient seen and examined. Resting comfortably and not in any acute distress. No events overnight reported by nursing staff. No new complaints today. She continues to report left like the pain or reports improvement with current pain regimen. She remains afebrile hemodynamically stable. Antibiotics were changed from Unasyn to vancomycin yesterday to growth of MRSA from OR cultures. Recommendations: -Continue IV vancomycin. Follow-up repeat oral cultures. Follow up with podiatry service regarding any concern for residual osteomyelitis. -Antibiotic type and duration to be determined pending the above. -Continue current pain management regimen. -Physical therapy consultation for discharge planning.
[2016-08-08 15:21] VITALS: BP 126/70
[2016-08-08 22:00] VITALS: BP 140/80
[2016-08-09 06:53] VITALS: BP 111/69
--- NOTE | 2016-08-09 07:51 | PN- Housestaff ---
CLIFTON ESCOBAR 08/09/16 0751: Subjective Follow-up For: cellulitis Subjective: Seen and examined patient. She has difficulty sleeping last night as she had to make sure her IV in her arm was straight. Reports some pain in her left foot. She would like to have Motrin for her breakthrough pain instead of IV tylenol. Denies fever, chills, chest pain, shortness of breath. Review of Systems Constitutional: Denies: chills, diaphoresis, fever, malaise, weakness, unexplained weight loss. Cardiovascular: Denies: chest pain, edema, orthopena, palpitations, peripheral edema, syncope. Respiratory: Denies: cough, hemoptysis, orthopnea, short of breath, sputum production, stridor, wheezing. Objective Last 24 Hrs of Vital Signs/I&O Vital Signs Date Time Temp Pulse Resp B/P B/P Pulse O2 O2 Flow FiO2 Mean Ox Delivery Rate 08/09 0653 97.7 77 20 111/69 98 Room Air 08/08 2200 98.6 78 20 140/80 94 Room Air 08/08 1521 98.9 73 18 126/70 96 Room Air Intake & Output 08/09 1600 08/09 0800 08/09 0000 Intake Total 480 840 Output Total 650 500 Balance -170 340 Intake, Oral 480 840 Number 3 Bowel Movements Output, Urine 650 500 Physical Exam General Appearance: Alert, Oriented X3, Cooperative, No Acute Distress Cardiovascular: Regular Rate, Normal S1, Normal S2 Lungs: Clear to Auscultation, Normal Air Movement Abdomen: Normal Bowel Sounds, Soft, No Tenderness Extremities: dressing over left foot, moves the big toe minimally. right foot no swelling or increase in warmth noted Current Medications: Current Medications Sig/Esteban Start time Last Medication Dose Route Stop Time Status Admin Acetaminophen 1,000 MG Q6P PRN 08/05 2000 DC 08/09 N/A 1 UNIT IV 0453 Acetaminophen 650 MG Q6P PRN 08/05 0200 AC 05/04 PO 0056 Albuterol Sulfate 2 PUF Q4P PRN 08/05 0200 AC INH Atorvastatin Calcium 40 MG 1700 08/05 1700 AC 08/08 PO 1708 Budesonide/ 2 PUF BID 08/05 1000 AC Formoterol Fumarate INH Bupropion HCl 450 MG DAILY 08/05 1000 AC 08/09 PO 0926 Docusate Sodium 100 MG DAILY 05/04 1031 AC PO Fish Oil 1,050 MG DAILY 08/05 1000 AC 08/09 PO 09 Gabapentin 300 MG BID 08/05 1000 AC 08/09 PO 09 Heparin Sodium 5,000 UNIT Q8 08/08 1000 AC 08/09 (Porcine) SC 0453 Hydromorphone HCl 2 MG BID PRN 08/06 1030 AC 08/09 PO 0836 Ibuprofen 600 MG Q6P PRN 08/09 0900 AC PO Ibuprofen 600 MG Q6P PRN 08/05 0700 DC 08/05 PO 0703 Lamotrigine 200 MG AT BEDTIME 08/05 2200 AC 08/08 PO 212 Lamotrigine 100 MG QAM 08/05 1000 AC 08/09 PO 09 Loperamide HCl 2 MG Q6P PRN 08/08 0930 AC 08/09 PO 0927 Melatonin 5 MG AT BEDTIME 08/09 2200 AC PO Multivitamins 1 TAB DAILY 08/05 1000 AC 08/09 Therapeutic PO 0926 Omeprazole 40 MG ONCE ONE 08/08 2114 DC 08/08 PO 08/08 Ondansetron HCl 4 MG ONCE ONE 08/08 2114 DC 08/08 IV 08/08 Ondansetron HCl 4 MG Q6P PRN 08/06 1030 AC PO Polyethylene Glycol 17 GM DAILY 08/06 103 AC PO Pregabalin 150 MG BID 08/05 1000 AC 08/09 PO 09 Risperidone 1 MG QPM 08/05 2200 AC 08/08 PO 212 Senna/Docusate Sodium 2 TAB DAILY 08/06 1031 AC 08/08 PO 0907 Vancomycin HCl 1,250 MG Q12H 08/07 1400 AC 08/09 Sodium Chloride 250 ML IV 0145 Last 24 Hrs of Lab/Matthew Results Last 24 Hrs of Labs/Mics: Laboratory Tests 08/09/1615: CBC w Diff NO MAN DIFF REQ, RBC 3.86 L, MCV 88.4, MCH 29.1, RDW 14.1, MPV 8.6, Gran % 59.0, Lymphocytes % 33.4, Monocytes % 4.4, Eosinophils % 2.5, Basophils % 0.7, Absolute Granulocytes 4.9, Absolute Lymphocytes 2.8, Absolute Monocytes 0.4 , Absolute Eosinophils 0.2, Absolute Basophils 0.1, PUBS MCHC 32.9 L Assessment/Plan Assessment: 61-year-old woman with significant past medical history of COPD, anxiety/ depression, hyperlipidemia, diverticulosis/IBS status post hemicolectomy, idiopathic neuropathy with recurrent osteomyelitis, status post right transmetatarsal amputation, left second toe amputation, previously grown methicillin sensitive staph aureus and Pseudomonas from previous OR cultures, multiple previous soft tissue infections, followed by Dr. Patel and at the wound care center, presented to the hospital emergency department with fever and left foot/fourth toe erythema. Hospital day 4 afebrile BP stable, saturating 98% on RA. POD 3 open partial fourth ray resection left foot seconday to gangrene left fourth toe and POD 2 delayed primary closure of open surgical wound Gross specimen growing MRSA. Stool neg for c.diff problem list: Cellulitis/? osteomyelitis Anxiety/depression bipolar disorder hyperlipidemia COPD Diarrhea plan: ID and Podiatry on board, appreciate recomendations, On IV Vancomycin. From a vascular standpoint, no acute intervention required or additional anticoagulation or antiplatelet. Recomending to follow-up as outpatient with Dr. Osullivan. Continue home meds of bupropion, risperidone,abapentin, Lyrica. Will start her home dose of Dilaudid. DVT prophylaxis on hold for surgery today, refusing mechanical alps PT to evaluate and treat full code Problem List: 1. Cellulitis Pain Ratin Pain Location: left foot Pain Goal: Pain 4 or less Pain Plan: will stop tyelenol and add motrin for break through pain Tomorrow's Labs & Rationales: none required LUIS CAT MD 08/09/16 1203: Attending MD Review Statement Attending Statement Attending MD Statement: examined this patient, discuss w/resident/PA/HVAC TECH, agreed w/resident/PA/HVAC TECH, reviewed EMR data (avail), discussed with nursing, discussed with case mgmt, amended to note Attending Assessment/Plan: Patient seen and examined. Resting comfortably and not in any acute distress. No events overnight. She remains afebrile hemodynamically stable. Her white cell count has trended down to normal limits. Case was discussed with the ID service. Recommendations for now to continue vancomycin IV until it is confirm that she does no have residual osteomyelitis. At which point she will be transitioned to oral antibiotics and discharged. She will will likely require short-term rehabilitation upon discharge.
[2016-08-09 07:52] LABS: ABSOLUTE BASOPHIL COUNT 0.1 /CUMM (0.0-0.2); ABSOLUTE EOSINOPHIL COUNT 0.2 /CUMM (0.0-0.7); ABSOLUTE GRANULOCYTE CT 4.9 /CUMM (1.4-6.5); ABSOLUTE LYMPH COUNT 2.8 /CUMM (1.2-3.4); ABSOLUTE MONOCYTE COUNT 0.4 /CUMM (0.10-0.60); BASOPHIL % 0.7 % (0.0-2.0); EOSINOPHIL % 2.5 % (0-5); HEMATOCRIT 34.1 % (37-47); MEAN CORPUSCULAR HGB 29.1 PG (27.0-31.0); MEAN CORPUSCULAR HGB CONC 32.9 G/DL (33.0-37.0); MEAN CORPUSCULAR VOLUME 88.4 FL (81.0-99.0); MEAN PLATELET VOLUME 8.6 FL (7.4-10.4); PLATELET COUNT 239 /CUMM (130-400); RBC DISTRIBUTION WIDTH 14.1 % (11.5-14.5); RED BLOOD CELL CT 3.86 /CUMM (4.20-5.40); WHITE BLOOD CELL COUNT 8.3 /CUMM (4.8-10.8)
--- NOTE | 2016-08-09 11:10 | PN- Infect Dx ---
Subjective Subjective: Afebrile. She notes mild discomfort in the left foot Objective Last 24 Hrs of Vital Signs/I&O Vital Signs Date Time Temp Pulse Resp B/P B/P Pulse O2 O2 Flow FiO2 Mean Ox Delivery Rate 08/09 0553 97.7 77 20 111/69 98 Room Air 08/08 2200 98.6 78 20 140/80 94 Room Air 08/08 1521 98.9 73 18 126/70 96 Room Air Intake & Output 08/09 1600 08/09 0800 08/09 0000 Intake Total 480 840 Output Total 650 500 Balance -170 340 Intake, Oral 480 840 Number 3 Bowel Movements Output, Urine 650 500 Physical Exam Other Physical Findings: She appears comfortable in no acute distress Extremities left foot dressing intact Results Last 24 Hours of Lab Results: Laboratory Tests 08/09 614 Hematology CBC w Diff NO MAN DIFF REQ WBC (4.8 - 10.8 /CUMM) 8.3 RBC (4.20 - 5.40 /CUMM) 3.86 L Hgb (12.0 - 16.0 G/DL) 11.2 L Hct (37 - 47 %) 34.1 L MCV (81.0 - 99.0 FL) 88.4 MCH (27.0 - 31.0 PG) 29.1 RDW (11.5 - 14.5 %) 14.1 Plt Count (130 - 400 /CUMM) 239 MPV (7.4 - 10.4 FL) 8.6 Gran % (42.2 - 75.2 %) 59.0 Lymphocytes % (20.5 - 51.1 %) 33.4 Monocytes % (1.7 - 9.3 %) 4.4 Eosinophils % (0 - 5 %) 2.5 Basophils % (0.0 - 2.0 %) 0.7 Absolute Granulocytes (1.4 - 6.5 /CUMM) 4.9 Absolute Lymphocytes (1.2 - 3.4 /CUMM) 2.8 Absolute Monocytes (0.10 - 0.60 /CUMM) 0.4 Absolute Eosinophils (0.0 - 0.7 /CUMM) 0.2 Absolute Basophils (0.0 - 0.2 /CUMM) 0.1 PUBS MCHC (33.0 - 37.0 G/DL) 32.9 L Last 24 Hours of Matthew Results: Stool C. difficile August 08 negative Blood cultures August 06 negative Assessment/Plan Impression: Stable status post revisional partial fourth ray resection of the left foot and closure of the wound 2 days ago for gangrene and osteomyelitis of the left fourth toe, with the OR culture positive for MRSA. She remains afebrile with white blood cell count now normal on Vancomycin. Have discussed with Podiatry, who does not feel that she has residual osteomyelitis of the left foot; therefore she should not require a prolonged course of IV antibiotics. A specimen of residual bone was submitted to pathology, however, which may help confirm the clinical suspicion that there is no residual osteomyelitis, and Vancomycin can be continued pending these results. Suggestion: 1. Follow-up pathology on the specimen of bone submitted from her recent surgery 2. Continue Vancomycin pending above
[2016-08-09 14:17] VITALS: BP 122/80
[2016-08-09 22:29] VITALS: BP 102/80
--- NOTE | 2016-08-10 06:34 | PN- Housestaff ---
See Addendum Subjective Follow-up For: cellulitis Subjective: Seen and examined patient. Feels well. offers no complaints Review of Systems Constitutional: Denies: chills, diaphoresis, fever, malaise, weakness, unexplained weight loss. Cardiovascular: Denies: chest pain, edema, orthopena, palpitations, peripheral edema, syncope. Objective Last 24 Hrs of Vital Signs/I&O Vital Signs Date Time Temp Pulse Resp B/P B/P Pulse O2 O2 Flow FiO2 Mean Ox Delivery Rate 08/10 634 98.3 78 20 120/84 95 Room Air 08/09 2229 98.5 85 20 102/80 96 Room Air 08/09 1417 97.8 73 20 122/80 94 08/09 1238 4.0 Intake & Output 08/10 1600 08/10 0800 08/10 0000 Intake Total 780 600 Output Total 400 Balance 780 200 Intake, IV 300 Intake, Oral 480 600 Number 0 2 Bowel Movements Output, Urine 400 Physical Exam General Appearance: Alert, Oriented X3, Cooperative, No Acute Distress Cardiovascular: Regular Rate, Normal S1, Normal S2 Lungs: Clear to Auscultation, Normal Air Movement Current Medications: Current Medications Sig/Esteban Start time Last Medication Dose Route Stop Time Status Admin Acetaminophen 1,000 MG Q6P PRN 08/05 2000 DC 08/09 N/A 1 UNIT IV 0453 Acetaminophen 650 MG Q6P PRN / 0200 AC 08/06 PO 0056 Albuterol Sulfate 2 PUF Q4P PRN 08/05 0200 AC INH Atorvastatin Calcium 40 MG 1700 / 1700 AC 08/09 PO 1739 Budesonide/ 2 PUF BID 08/05 1000 AC Formoterol Fumarate INH Bupropion HCl 450 MG DAILY 08/05 1000 AC 08/10 PO 0803 Docusate Sodium 100 MG DAILY 08/06 1031 AC PO Fish Oil 1,050 MG DAILY 08/05 1000 AC 08/10 PO 0804 Gabapentin 300 MG BID 08/05 1000 AC 08/10 PO 0803 Heparin Sodium 5,000 UNIT Q8 08/08 1000 AC 08/10 (Porcine) SC 0525 Hydromorphone HCl 0.2 MG ONCE ONE 08/10 0545 DC / IV 08/10 0546 0628 Hydromorphone HCl 2 MG BID PRN 08/06 1030 AC 08/09 PO 2329 Ibuprofen 600 MG Q6P PRN 08/09 0900 AC 08/10 PO 0425 Ibuprofen 600 MG Q6P PRN 08/05 0700 DC 08/05 PO 0703 Lamotrigine 200 MG AT BEDTIME 08/05 2200 AC 08/09 PO 2201 Lamotrigine 100 MG QAM 08/05 1000 AC 08/10 PO 0803 Loperamide HCl 2 MG .STK-MED ONE 08/09 0824 DC PO 08/09 0925 Loperamide HCl 2 MG Q6P PRN 08/08 0930 AC 08/09 PO 1947 Melatonin 5 MG AT BEDTIME 08/09 2200 AC 08/09 PO 2202 Multivitamins 1 TAB DAILY 08/05 1000 AC 08/10 Therapeutic PO 0803 Ondansetron HCl 4 MG Q6P PRN 08/06 1030 AC PO Polyethylene Glycol 17 GM DAILY 08/06 1031 AC PO Pregabalin 150 MG BID 08/05 1000 AC 08/10 PO 0803 Risperidone 1 MG QPM 08/05 2200 AC 08/09 PO 2201 Senna/Docusate Sodium 2 TAB DAILY 08/06 1031 AC 08/08 PO 0907 Vancomycin HCl 1,250 MG Q12H 08/07 1400 AC 08/10 Sodium Chloride 250 ML IV 0202 Assessment/Plan Assessment: 61-year-old woman with significant past medical history of COPD, anxiety/ depression, hyperlipidemia, diverticulosis/IBS status post hemicolectomy, idiopathic neuropathy with recurrent osteomyelitis, status post right transmetatarsal amputation, left second toe amputation, previously grown methicillin sensitive staph aureus and Pseudomonas from previous OR cultures, multiple previous soft tissue infections, followed by Dr. Patel and at the wound care center, presented to the hospital emergency department with fever and left foot/fourth toe erythema. Hospital day 5 afebrile BP stable, saturating 98% on RA. POD 4 open partial fourth ray resection left foot seconday to gangrene left fourth toe and POD 3 delayed primary closure of open surgical wound Gross specimen growing MRSA. Stool neg for c.diff problem list: Cellulitis/? osteomyelitis Anxiety/depression bipolar disorder hyperlipidemia COPD Diarrhea plan: ID and Podiatry on board, appreciate recomendations, On IV Vancomycin. From a vascular standpoint, no acute intervention required or additional anticoagulation or antiplatelet. Recomending to follow-up as outpatient with Dr. Osullivan. Continue home meds of bupropion, risperidone,abapentin, Lyrica. on home dose of Dilaudid. DVT prophylaxis on hold for surgery today, refusing mechanical alps PT recomending STR full code Problem List: 1. Cellulitis Pain Ratin Pain Location: left foot Pain Goal: Pain 4 or less Pain Plan: will give one time of 2mg po dilaudid, pt does not wish more than that Tomorrow's Labs & Rationales: none required
[2016-08-10 06:35] VITALS: BP 120/84
--- NOTE | 2016-08-10 08:47 | Discharge Summary ---
Visit Information Visit Dates Admission Date: 08/04/16 Discharge Date: 08/13/16 Hospital Course Course Attending Physician: LUIS CAT M.D Primary Care Physician: CANDELARIO ABEBE,[place] Hospital Course: Wilma is a 61-year-old woman with a medical history of COPD, anxiety/ depression, dyslipidemia, diverticulosis/IPF status post hemicolectomy, idiopathic neuropathy with multiple bouts of osteomyelitis in her toes) status post right transmetatarsal amputation, left second toe amputation) with history of MRSA positive cultures as well as Pseudomonas cultures. Multiple previous soft tissue infections followed by Jerry Patel (podiatry) at the [facility] wound care center, and complex regional pain syndrome, who presented to the emergency department fever and left foot/fourth toe redness and pain along with swelling. She was admitted to general medical floor for sepsis, with presumed source to the left fourth toe. There is a concern for osteomyelitis, however erythrocyte sedimentation rate was unimpressive. X-rays of the foot did reveal changes consistent with osteomyelitis, an MRI was planned however was deferred because the patient was taken to the OR for debridement. She was subsequently taken to the OR again by Jerry Patel DPM for open I&D, revisional partial fourth ray resection of the left foot, excisional debridement and closure. Infectious disease consultation was sought history history of recurrent osteomyelitis and superficial soft tissue infections. She was started on IV Vancomycin. Pathology report confirmed Osteomyelitis of the left fourth toe. The shunt was seen by DIVYA Lowery MD and is being discharged on IV vancomycin to continue until 09/04/2016 while the patient is on medication she will get weekly CBC, ESR, BUN/creatinine and vancomycin trough levels . The patient also has underlying peripheral arterial disease, duplex scans showed stable arterial disease. The patient follows with Dr. Gilbert Osullivan, no intervention was performed. She will need continued follow-up in the next few weeks. No anticoagulation needed at this time. Upon discharge she should follow-up with her primary medical doctor, Dr. Denis Jha, Jerry Patel DPM her air analysis technician, and Gilbert Osullivan MD ( vascular surgery). Problems: Cellulitis left foot with nonhealing wound Allergies: Coded Allergies: No Known Drug Allergies (UNKNOWN 06/09/16) Pertinent Lab Results: Vital Signs Date Time Temp Pulse Resp B/P B/P Pulse O2 O2 Flow FiO2 Mean Ox Delivery Rate 08/10 0919 Room Air 05/08 0635 98.3 78 20 120/84 95 Room Air 05/07 2229 98.5 85 20 102/80 96 Room Air 05/07 1417 97.8 73 20 122/80 94 05/07 1238 4.0 05/07 0653 97.7 77 20 111/69 98 Room Air 05/06 2200 98.6 78 20 140/80 94 Room Air 05/06 1521 98.9 73 18 126/70 96 Room Air 05/06 0720 97.5 83 20 111/70 95 Room Air 05/05 2200 98.6 90 18 122/78 94 Room Air 05/05 1433 98.3 81 20 126/82 94 Room Air 05/05 0655 98.7 85 18 114/72 94 Room Air 05/04 2202 99.5 100 20 124/72 94 Room Air 05/04 2000 99.4 05/04 1920 99.8 102 20 124/70 94 Room Air 05/04 0631 98.7 96 20 122/84 96 Room Air 05/04 0211 99.0 102 20 100/68 91 Room Air 05/04 0103 99.9 05/03 2243 102.6 110 18 147/77 93 Room Air 05/03 2140 102.6 05/03 2003 103.4 05/03 1945 103.1 116 20 142/58 94 05/03 1700 99.5 96 18 132/68 98 Room Air 05/03 1303 100.0 76 18 115/84 98 Room Air 05/03 0810 100.0 05/03 0810 100.0 75 20 111/57 98 Room Air 05/03 0703 101.1 05/03 0648 101.1 05/03 0648 101.1 103 20 141/73 6 Room Air 05/03 0606 100.6 05/03 0553 100.6 106 20 104/58 100 Room Air 05/03 0500 99.1 97 16 103/77 96 Room Air 05/03 0430 96 16 109/60 98 Room Air 05/03 0406 106/60 05/03 0339 98.0 90 16 83/50 97 Room Air 05/02 2344 102.1 05/02 2321 102.3 05/02 2315 102.3 125 16 117/55 95 Room Air 05/02 2257 103.3 08/04 2229 104.0 123 22 124/63 96 Room Air 08/04 2205 104.0 08/04 2041 Room Air 08/04 1953 99.6 122 18 127/73 95 Room Air Last 24 Hours I&Os 08/10 1600 08/10 0800 08/10 0000 Intake Total 780 600 Output Total 400 Balance 780 200 Intake, IV 300 Intake, Oral 480 600 Number 0 2 Bowel Movements Output, Urine 400 Microbiology Date/Time Procedure - Status Source Growth 08/08 0920 Clostridium difficile Toxin A & B - COMP STOOL 08/06 1051 Blood Culture - RES BLOOD 08/05 1350 Gross Specimen Examination - COMP EXTREMITIE METH RESIST STAPH AUREUS 08/05 135 Gram Stain - COMP EXTREMITIE 08/05 1127 Urine Culture - COMP URINE ROUT Orders Procedure Date/time Status PT Evaluate & Treat 08/09 599 Active CBC WITHOUT DIFFERENTIAL 08/09 599 Complete PT EVAL MOD COMPLEX 30 MIN 08/09 UNK Complete Gait Training 08/09 UNK Complete MISSING MEDICATION FORM 08/08 UNK Active Regular Diet 08/07 D Active C.DIFFICILE 08/07 1136 Complete Disposition Summary Disposition Principal Diagnosis: see above Additional Diagnosis: see above Discharge Disposition: str Discharge Instructions General Discharge Information Code Status: Full Code Patient's Diet: regular Patient's Activity: self limited Follow-Up Instructions/Appts: see above Medications at Discharge Discharge Medications: Continue taking these medications: Points-3 Fatty Acids (Fish Oil Concentrate) 1,000 MG CAPSULE 1 Capsule ORAL DAILY Comments: Last Taken: 08/13/16 Time: 913AM Multivitamin (Multiple Vitamins) 1 EACH TABLET 1 Tablet ORAL DAILY Comments: Last Taken: 08/13/16 Time: 913AM Bupropion HCl (Bupropion XL) 150 MG TAB.ER.24H 3 Tablet ORAL Every Morning Comments: Last Taken: 08/13/16 Time: 913AM Pregabalin (Lyrica) 150 MG CAPSULE 1 Capsule ORAL TWICE DAILY Comments: NOT GIVEN IN HOSPITAL Lamotrigine (Lamictal) 100 MG TABLET 2 Tablet ORAL AT BEDTIME Comments: Last Taken: 08/12/16 Time: 2108PM Lamotrigine (Lamictal) 100 MG TABLET 1 Tablet ORAL Every Morning Comments: Last Taken: 08/13/16 Time: 913AM Gabapentin (Gabapentin) 300 MG CAPSULE 1 Capsule ORAL TWICE DAILY Qty = 90 Comments: Last Taken: 08/13/16 Time: 913AM Risperidone (Risperidone) 1 MG TABLET 1 Tablet ORAL Every night Qty = 90 Comments: Last Taken: 08/12/16 Time: 2108PM Hydromorphone HCl (Hydromorphone HCl) 2 MG TABLET 1 Tablet ORAL TWICE DAILY as needed for PAIN Comments: Last Taken: 08/13/16 Time: 1120AM Rosuvastatin Calcium (Crestor) 10 MG TABLET 10 Milligram ORAL Every night Comments: Last Taken: 08/12/16 Time: 1900PM Albuterol Sulfate (Proair Hfa) 90 MCG HFA.AER.AD 2 Puff Inhale through mouth As Directed as needed for RESPIRATORY Qty = 9 Comments: NOT GIVEN IN HOSPITAL Budesonide/Formoterol Fumarate (Symbicort 160-4.5 Mcg Inhaler) 160 MCG-4.5 MCG/ ACTUATION HFA.AER.AD 2 Puff Inhale through mouth as needed for RESPIRATORY Qty = 10 Comments: NOT GIVEN IN HOSPITAL Start taking the following new medications: Vancomycin/0.9 % Sod Chloride (Vanco 1.25 Gm/250 Ml-0.9% NaCl) 1.25 GRAM/250 ML PLAST..BAG 1,250 Milligram INTRAVEN TWICE DAILY Days = 21 No Refills Instructions: PLEASE HAVE IT GIVEN TO YOU TWICE DAILY FOR NEXT THREE WEEKS (TOTAL OF FOUR WEEKS), UNTIL SEPTEMBER 04, 2016. Comments: Last Taken: 08/13/16 Time: 1300PM Ibuprofen (Ibuprofen) 600 MG TABLET 600 Milligram ORAL EVERY SIX HOURS NEEDED as needed for PAIN SCALE 4-6 ( MODERATE) Qty = 30 No Refills Comments: Last Taken: 08/13/16 Time: 8AM Melatonin (Melatonin) 5 MG TABLET 5 Milligram ORAL AT BEDTIME Qty = 30 No Refills Comments: Last Taken: 08/12/16 Time: 2108PM Loperamide HCl (Loperamide) 2 MG CAPSULE 2 Milligram ORAL SEE INSTRUCTIONS as needed for DIARRHEA Qty = 30 No Refills Instructions: PLEASE TAKE ONE TABLET AFTER EACH LOOSE BOWEL MOVEMENT, WITH MAXIMUM OF 8 MG / DAY. Comments: Last Taken: 08/13/16 Time: 0127AM Copies To: JERRY APTEL DPM; CANDELARIO ABEBE,BRIMAL; FRANCISCO ABEBE,GILBERT Attending MD Review Statement Documenting Attending: LUIS CAT M.D Other Findings: I have reviewed the discharged summary.
--- NOTE | 2016-08-10 11:01 | Patient Discharge Instructions ---
Discharge Instructions General Discharge Information You were seen/treated for: Osteomyelitis of left fourth toe You had these procedures: Debridement and bone biopsy of left fourth toe Watch for these problems: Fever, chills, increased drainage from the toe wound, severe pain Special Instructions: You have to take IV antibiotic vancomycin twice daily for the next 3 weeks. An IV line (PICC line) has been inserted yesterday, which has to be used only for this purpose. Please follow-up with primary care physician within 7 days of discharge. Please follow-up with podiatry service within 7 days of discharge. While the patient is on IV Vancomycin which should continue until 09/04/2016 he is supposed to have weekly CBC, ESR, BUN/Creatinine and vancomycin trough levels Diet Continue normal diet: Yes Recommended Diet: Heart Healthy Activity Full Activity/No Limits: No Activity Self Limited: Yes Acute Coronary Syndrome Inclusion Criteria At DC or during hospital stay patient has or had the following: ACS DIAGNOSIS No Discharge Core Measures Meds if any: Prescribed or Continued at Discharge Meds if any: NOT Prescribed or Continued at Discharge Congestive Heart Failure Inclusion Criteria At DC or during hospital stay patient has or had the following: CHF DIAGNOSIS No Discharge Core Measures Meds if any: Prescribed or Continued at Discharge Meds if any: NOT Prescribed or Continued at Discharge Cerebrovascular accident Inclusion Criteria At DC or during hospital stay patient has or had the following: CVA/TIA Diagnosis No Discharge Core Measures Meds if any: Prescribed or Continued at Discharge Meds if any: NOT Prescribed or Continued at Discharge Venous thromboembolism Inclusion Criteria VTE Diagnosis No VTE Type NONE VTE Confirmed by (Test) NONE Discharge Core Measures - Per Current guidelines, there needs to be overlap - treatment for the first 5 days of Warfarin therapy. - If discharged on Warfarin prior to 5 days of - overlap therapy, the patient will need to be - assessed for post discharge needs including - *Post discharge parental anticoagulation - *Warfarin and/or parental anticoagulation education - *Follow up date to check INR post discharge At least 5 days overlap therapy as Inpatient No Meds if any: Prescribed or Continued at Discharge Note: Overlap Therapy is Warfarin and Anticoagulant Meds if any: NOT Prescribed or Continued at Discharge
--- NOTE | 2016-08-10 13:43 | PN- Infect Dx ---
Subjective Subjective: Afebrile. She has moderate discomfort in the left foot. Objective Last 24 Hrs of Vital Signs/I&O Vital Signs Date Time Temp Pulse Resp B/P B/P Pulse O2 O2 Flow FiO2 Mean Ox Delivery Rate 08/10 0919 Room Air 08/10 0635 98.3 78 20 120/84 95 Room Air 08/09 2229 98.5 85 20 102/80 96 Room Air 08/09 1417 97.8 73 20 122/80 94 Intake & Output 08/10 1600 08/10 0800 08/10 0000 Intake Total 780 600 Output Total 700 400 Balance -700 780 200 Intake, IV 300 Intake, Oral 480 600 Number 0 2 Bowel Movements Output, Urine 700 400 Physical Exam Other Physical Findings: She appears comfortable in no acute distress Extremities left foot dressing intact Results Last 24 Hours of Lab Results: No recent labs Last 24 Hours of Matthew Results: Blood cultures 2 August 06 negative Assessment/Plan Impression: Stable status post revisional partial fourth ray resection of the left foot and closure of the wound 3 days ago for gangrene and osteomyelitis of the left fourth toe, with the OR culture positive for MRSA. She remains afebrile with white blood cell count normal on Vancomycin. Have discussed with Podiatry, who does not feel that she has residual osteomyelitis of the left foot; nevertheless will await the results of the pathology on the specimen of residual bone that was recently submitted to confirm this clinical suspicion. Suggestion: 1. Follow-up pathology on the specimen of bone submitted from her recent surgery 2. Continue Vancomycin pending above
[2016-08-10 14:37] VITALS: BP 138/81
--- NOTE | 2016-08-10 15:31 | PN- Vascular Surgery ---
Surgical Brief Attending Note Brief Attending Note: Agree with physician library media assistant note dated August 06. Patient was seen on that day by the attending physician after the patient had just finished in the operating room. Patient is stable from a vascular standpoint intermittent follow-up as an outpatient.
[2016-08-10 23:09] VITALS: BP 120/73
[2016-08-11 06:42] VITALS: BP 102/63
--- NOTE | 2016-08-11 08:03 | PN- Housestaff ---
RACHEL ABEBE,AMINA 08/11/16 0803: Subjective Follow-up For: Sepsis secondary to cellulitis of left fourth toe, ruling out ostiomyelitis Complaints: fluctuating pain Subjective: I followed up and examined the patient today. She is resting comfortably in bed , not in distress, does not offer any complaints. On questioning her pain level is intermittent, ranging from 0-10 max, vital signs stable, no overnight issues. Review of Systems Constitutional: Reports: see HPI. Objective Last 24 Hrs of Vital Signs/I&O Vital Signs Date Time Temp Pulse Resp B/P B/P Pulse O2 O2 Flow FiO2 Mean Ox Delivery Rate 08/11 0642 97.8 76 20 102/63 94 Room Air 08/10 2309 97.5 74 20 120/73 94 Room Air 08/10 1437 98.6 87 20 138/81 96 Room Air Intake & Output 08/11 1600 08/11 0800 08/11 0000 Intake Total 760 Output Total Balance 760 Intake, IV 280 Intake, Oral 480 Number 0 Bowel Movements Physical Exam General Appearance: Alert, Oriented X3, Cooperative, No Acute Distress Other Physical Findings: Cardiovascular: Regular Rate, Normal S1, Normal S2 Lungs: Clear to Auscultation, Normal Air Movement Neuro: Grossly intact Extremity: Left feet has 1st, 3rd, and 5th toes intact, dressing in situ over 4th left toe with no soakage Current Medications: Current Medications Sig/Esteban Start time Last Medication Dose Route Stop Time Status Admin Acetaminophen 650 MG Q6P PRN 08/05 0200 AC 08/06 PO 0056 Albuterol Sulfate 2 PUF Q4P PRN 08/05 0200 AC INH Atorvastatin Calcium 40 MG 1700 / 1700 AC 08/10 PO 1644 Budesonide/ 2 PUF BID / 1000 AC Formoterol Fumarate INH Bupropion HCl 450 MG DAILY / 1000 AC 08/11 PO 0930 Docusate Sodium 100 MG DAILY 08/06 1031 AC PO Fish Oil 1,050 MG DAILY 08/05 1000 AC 08/11 PO 0932 Gabapentin 300 MG BID / 1000 AC / PO 0930 Heparin Sodium 5,000 UNIT Q8 / 1000 AC 08/11 (Porcine) SC 0625 Hydromorphone HCl 2 MG BID PRN 08/06 1030 AC 08/11 PO 0934 Ibuprofen 600 MG Q6P PRN 08/09 0900 AC 08/10 PO 1644 Lamotrigine 200 MG AT BEDTIME 08/05 2200 AC 08/10 PO 211 Lamotrigine 100 MG QAM 08/05 1000 AC 08/11 PO 0930 Loperamide HCl 2 MG Q6P PRN 08/08 0930 AC 08/11 PO 0937 Melatonin 5 MG AT BEDTIME 08/09 2200 AC 08/10 PO 211 Multivitamins 1 TAB DAILY 08/05 1000 AC 08/11 Therapeutic PO 0930 Ondansetron HCl 4 MG Q6P PRN 08/06 1030 AC PO Polyethylene Glycol 17 GM DAILY 08/06 1031 AC PO Pregabalin 150 MG BID 08/05 1000 AC 08/11 PO 0931 Risperidone 1 MG QPM 08/05 2200 AC 08/10 PO 211 Senna/Docusate Sodium 2 TAB DAILY 08/06 1031 AC 08/08 PO 0907 Vancomycin HCl 1,250 MG Q12H 08/07 1400 AC 08/11 Sodium Chloride 250 ML IV 0158 Last 24 Hrs of Lab/Matthew Results Last 24 Hrs of Labs/Mics: Awaiting bone biopsy/culture reports Assessment/Plan Assessment: 61-year-old woman with significant past medical history of COPD, anxiety/ depression, hyperlipidemia, diverticulosis/IBS status post hemicolectomy, idiopathic neuropathy with recurrent osteomyelitis, status post right transmetatarsal amputation, left second toe amputation, previously grown methicillin sensitive staph aureus and Pseudomonas from previous OR cultures, multiple previous soft tissue infections, followed by Dr. Patel and at the wound care center, presented to the hospital emergency department with fever and left foot/fourth toe erythema. #Left fourth toe cellulitis, possible osteomyelitis, s/p surgery Hospital day 6 Mary has been stable, saturating 98% on RA. POD 5 open partial ray resection of left toe seconday to gangrene and POD 4 of delayed primary closure of open surgical wound. Mary's gross specimen growing MRSA, currently on vancomycin. Awaiting bone biopsy results. -If bone biopsy is positive for osteomyelitis, patient is to get a PICC line and a 6 weeks course of IV antibiotics in total. -If bone biopsy is negative for osteomyelitis when the patient can be discharged with oral antibiotics, the course as determined by ID service. -Appreciate ID consult. -From a vascular standpoint, no acute intervention required or additional anticoagulation or antiplatelet. Recomending to follow-up as outpatient with Dr. Osullivan. -Appreciate plastic surgery consult. # Continue home meds of bupropion, risperidone, gabapentin, Lyrica. Pain: on home dose of Dilaudid. DVT prophylaxis: lovenox PT recomending STR full code Problem List: 1. Cellulitis of foot Pain Ratin Pain Location: Left fourth toe Pain Goal: Pain 4 or less Pain Plan: prn Tomorrow's Labs & Rationales: - LUIS CAT MD 08/11/16 1537: Attending MD Review Statement Attending Statement Attending MD Statement: examined this patient, discuss w/resident/PA/FACETOR, agreed w/resident/PA/FACETOR, reviewed EMR data (avail), discussed with nursing, discussed with case mgmt, amended to note Attending Assessment/Plan: Patient seen and examined. Resting comfortably and not in any acute distress. No events overnight. Resting awaiting pathology results. Once obtained decisional be made regarding outpatient antibiotic therapy. She will be discharged to residential facility for short-term rehabilitation before she is transition home. Patient is in agreement with this plan. w/resident/PA/FACETOR, reviewed EMR data (avail), discussed with nursing, discussed with case mgmt, amended to note Attending Assessment/Plan: Patient seen and examined. Resting comfortably and not in any acute distress. No events overnight. Resting awaiting pathology results. Once obtained decisional be made regarding outpatient antibiotic therapy. She will be discharged to residential facility for short-term rehabilitation before she is transition home. Patient is in agreement with this plan.
[2016-08-11 15:06] VITALS: BP 124/84
[2016-08-11 22:26] VITALS: BP 110/74
[2016-08-12 06:56] VITALS: BP 118/70
--- NOTE | 2016-08-12 07:39 | PN- Housestaff ---
RACHEL ABEBE,AMINA 08/12/16 0739: Subjective Follow-up For: Sepsis secondary to cellulitis of left fourth toe, ruling out ostiomyelitis Complaints: no complaints Subjective: I followed up and examined the patient today. She is resting comfortably in her bed, is in a cheerful mood, and is not over any complaints. Her vitals have been stable, no fever or chills overnight, pain is under control, no overnight issues. Dr. Patel evaluated the patient yesterday afternoon. No note in EMR though. Review of Systems Constitutional: Reports: no symptoms. Objective Last 24 Hrs of Vital Signs/I&O Vital Signs Date Time Temp Pulse Resp B/P B/P Pulse O2 O2 Flow FiO2 Mean Ox Delivery Rate 08/12 0656 97.9 80 18 118/70 99 Room Air 08/11 2226 98.6 76 19 110/74 95 Room Air 08/11 1506 98.1 87 20 124/84 98 Room Air Intake & Output 08/12 1600 08/12 0800 08/12 0000 Intake Total 540 1000 Output Total 550 600 Balance -10 400 Intake, IV 300 Intake, Oral 240 1000 Number 1 0 Bowel Movements Output, Urine 550 600 Physical Exam General Appearance: Alert, Oriented X3, Cooperative, No Acute Distress, cheerful Other Physical Findings: Cardiovascular: Regular rate, normal S1, normal S2 Lungs: Clear to auscultation, normal air movement Neuro: Grossly intact Extremity: Left foot has dressing on, particularly over left fourth toe, which was neither soaked nor tender to light touch Current Medications: Current Medications Sig/Esteban Start time Last Medication Dose Route Stop Time Status Admin Acetaminophen 650 MG Q6P PRN 08/05 0200 AC 08/06 PO 0056 Albuterol Sulfate 2 PUF Q4P PRN 08/05 0200 AC INH Atorvastatin Calcium 40 MG 1700 / 1700 AC 08/11 PO 1639 Budesonide/ 2 PUF BID 08/05 1000 AC Formoterol Fumarate INH Bupropion HCl 450 MG DAILY 08/05 1000 AC 08/12 PO 0927 Docusate Sodium 100 MG DAILY 08/06 1031 AC PO Enoxaparin Sodium 40 MG 2200 08/11 2200 AC 08/11 SC 2201 Fish Oil 1,050 MG DAILY 08/05 1000 AC 08/12 PO 09 Gabapentin 300 MG BID 08/05 1000 AC 08/12 PO 0927 Heparin Sodium 5,000 UNIT Q8 08/08 1000 DC 08/11 (Porcine) SC 1317 Hydromorphone HCl 2 MG BID PRN 08/06 1030 AC 08/11 PO 1842 Ibuprofen 600 MG Q6P PRN 08/09 0900 AC 08/10 PO 1644 Lamotrigine 200 MG AT BEDTIME 08/05 2200 AC 08/11 PO 220 Lamotrigine 100 MG QAM 08/05 1000 AC 08/12 PO 0926 Loperamide HCl 2 MG Q6P PRN 08/08 0930 AC 08/12 PO 0926 Melatonin 5 MG AT BEDTIME 08/09 2200 AC 08/11 PO 2202 Multivitamins 1 TAB DAILY 08/05 1000 AC 08/12 Therapeutic PO 09 Ondansetron HCl 4 MG Q6P PRN 08/06 1030 AC PO Polyethylene Glycol 17 GM DAILY 08/06 1031 AC PO Pregabalin 150 MG BID 08/05 1000 DC 08/12 PO 0926 Risperidone 1 MG QPM 08/05 2200 AC 08/11 PO 2202 Senna/Docusate Sodium 2 TAB DAILY 08/06 1031 AC 08/08 PO 0907 Vancomycin HCl 1,250 MG Q12H 08/07 1400 AC 08/12 Sodium Chloride 250 ML IV 0155 Assessment/Plan Assessment: 61-year-old woman with significant past medical history of COPD, anxiety/ depression, hyperlipidemia, diverticulosis/IBS status post hemicolectomy, idiopathic neuropathy with recurrent osteomyelitis, status post right transmetatarsal amputation, left second toe amputation, previously grown methicillin sensitive staph aureus and Pseudomonas from previous OR cultures, multiple previous soft tissue infections, followed by Dr. Patel and at the wound care center, presented to the hospital emergency department with fever and left foot/fourth toe erythema. #Left fourth toe cellulitis, possible osteomyelitis, s/p surgery Hospital day 6 Mary has been stable, saturating 98% on RA. POD 5 open partial ray resection of left toe seconday to gangrene and POD 4 of delayed primary closure of open surgical wound. Mary's gross specimen growing MRSA, currently on vancomycin. Awaiting bone biopsy results. -Bone biopsy is positive for acute osteomyelitis per pathology report today. So the patient got a PICC line inserted and 4 weeks course of IV antibiotics Vancomycin in total. -Appreciate ID consult. -From a vascular standpoint, no acute intervention required or additional anticoagulation or antiplatelet. Recomending to follow-up as outpatient with Dr. Osullivan. -Appreciate plastic surgery consult. #Morbid obesity -BMI 43.3 kg/m3 -Patient was counseled about lifestyle modification, but this has to be on a routine visit as well, and not just when she is admitted for a serious condition like osteomyelitis. -Further management planned as an out patient # Continue home meds of bupropion, risperidone, gabapentin, Lyrica. Pain: on home dose of Dilaudid. DVT prophylaxis: lovenox PT recomending STR full code Problem List: 1. Cellulitis Pain Ratin Pain Location: foot Pain Goal: Pain 4 or less Pain Plan: prn, revised yesterday Tomorrow's Labs & Rationales: - LUIS CAT MD 08/12/16 1231: Attending MD Review Statement Attending Statement Attending MD Statement: examined this patient, discuss w/resident/PA/SERVICE DELIVERY ANALYST, agreed w/resident/PA/SERVICE DELIVERY ANALYST, reviewed EMR data (avail), discussed with nursing, discussed with case mgmt, amended to note Attending Assessment/Plan: Patient seen and examined. Lying comfortably in bed and not in any acute distress. No issues overnight. Similar retaining pathology report. Once report is obtained decision regarding appropriate antibiotic type and duration will be made. Continue intravenous vancomycin for now she will be discharged to group home facility for short-term rehabilitation once decision has been made..
--- NOTE | 2016-08-12 12:59 | PN- Infect Dx ---
Subjective Subjective: Afebrile. She notes some discomfort in the left foot. Objective Last 24 Hrs of Vital Signs/I&O Vital Signs Date Time Temp Pulse Resp B/P B/P Pulse O2 O2 Flow FiO2 Mean Ox Delivery Rate 08/12 0656 97.9 80 18 118/70 99 Room Air 08/11 2226 98.6 76 19 110/74 95 Room Air 08/11 1506 98.1 87 20 124/84 98 Room Air Intake & Output 08/12 1600 08/12 0800 08/12 0000 Intake Total 540 1000 Output Total 550 600 Balance -10 400 Intake, IV 300 Intake, Oral 240 1000 Number 1 0 Bowel Movements Output, Urine 550 600 Physical Exam Other Physical Findings: She appears comfortable in no acute distress Extremities left foot dressing intact Results Last 24 Hours of Lab Results: No recent labs Last 24 Hours of Matthew Results: No recent cultures Assessment/Plan Impression: Stable status post revisional partial fourth ray resection of the left foot and closure of the wound 5 days ago for gangrene and osteomyelitis of the left fourth toe, with the OR culture positive for MRSA. She remains afebrile with white blood cell count normal on Vancomycin. The results of the pathology on the specimen of residual bone submitted during her last surgery are pending and these will determine the need, if any, for continuation of IV antibiotics. If the biopsy is negative for osteomyelitis the Vancomycin can be discontinued and she can be followed off antibiotics. If the biopsy is positive for osteomyelitis she will require a PICC to complete a four-week course of IV Vancomycin. Suggestion: 1. Await pathology on the specimen of residual bone submitted from her recent surgery 2. Continue Vancomycin pending above
[2016-08-12 14:00] VITALS: BP 130/75
--- NOTE | 2016-08-12 17:23 | INTERVENTIONAL RADIOLOGY RPT ---
CLINICAL HISTORY: This patient is a 61-year-old female with a history of osteomyelitis, who presents to interventional radiology for placement of a single lumen PICC for central venous access. PROCEDURES: 1. Real-time ultrasound-guided access into the right basilic vein after documentation of selected vessel patency, and permanent imaging storing in the patient records. 2. Placement of a PICC. PHYSICIANS: Dr. Mazin Hawk (attending). The attending radiologist was present during the procedure and related imaging, and reviewed the report. MEDICATIONS: 2 mL of 1% lidocaine SQ. COMPLICATIONS: None. ESTIMATED BLOOD LOSS: <5 mL. SPECIMENS: None. FLUOROSCOPY TIME: 3.1 minutes. PROCEDURE NOTE: Informed consent was obtained from the patient prior to the procedure. During this process, the procedure and potential alternatives were explained along with the intended outcome and benefits. The risks of the procedure, including the possibility of an unsuccessful procedure, as well as the risk of not doing the procedure, were discussed. The patient was given the opportunity to ask questions regarding the procedure and appeared competent to make decisions. A signed consent form documenting this discussion was placed in the medical record. A time-out procedure was performed. The patient was placed supine on the fluoroscopy table. Prior to prepping the patient, a limited sonogram of the right arm was performed to choose appropriate access, and this arm was prepped and draped in the usual sterile fashion. Venous access was achieved into the right basilic vein using ultrasound and fluoroscopic guidance. A 0.018 wire was advanced into the cavoatrial junction. The needle was removed and replaced with the peel away sheath. The intravascular length was measured and the catheter was trimmed to the correct length. The inner dilator was removed and the PICC was advanced over the wire into the cavoatrial junction. The peel away sheath and wire were removed. The catheter was tested successfully and secured to the skin with its tip in the cavoatrial junction. A spot image was taken. FINDINGS: 1. Patent right basilic vein. 2. Successful placement of a 5 Fr single lumen PICC that measures 42 cm in length. Catheter tip is at the superior right atrium. IMPRESSION: Successful and uncomplicated placement of a single lumen PICC. PLAN: 1. The patient was stable after the procedure and was transferred to the interventional recovery area. The patient will be transferred back to her medical room. 2. The catheter may be used immediately.
--- NOTE | 2016-08-12 17:40 | RADIOLOGY REPORT ---
EXAMINATION: XR FOOT, LEFT CLINICAL INFORMATION: Osteomyelitis of the left fourth toe. Biopsy-proven. COMPARISON: Left foot 08/04/2016. TECHNIQUE: 3 views of the left foot. FINDINGS: There is a bandage over the foot and ankle. Since the prior plain film study of 08/04/2016 there has been resection of the left fourth toe. The phalanges have been removed. The fourth metatarsal remains in place. There is a bulbous contour of the distal left fourth metatarsal related to an old healed fracture but no bone destruction. No evidence of osteomyelitis. There is been resection of the second toe at the mid distal diaphyseal shaft of the metatarsal. There is joint narrowing subchondral sclerosis and spurring from degenerative change of the metatarsal tarsal joints. IMPRESSION: Status post resection of fourth toe. No radiographic evidence for osteomyelitis.
[2016-08-12 22:06] VITALS: BP 110/80
[2016-08-13 06:48] VITALS: BP 114/76
--- NOTE | 2016-08-13 06:59 | PN- Housestaff ---
RACHEL ABEBE,AMINA 08/13/16 0659: Subjective Follow-up For: Sepsis secondary to left fourth toe osteomyelitis Complaints: no complaints Subjective: I followed up and examined the patient today. She is resting comfortably in the bed, not in distress, and cheerful mood as usual, and does not have any complaints. On questioning, she does admit to having intermittent pain 10/10 at max and 0/10 at other times. Vital signs stable, pain well-managed, no overnight issues. Review of Systems Constitutional: Reports: no symptoms. Objective Last 24 Hrs of Vital Signs/I&O Vital Signs Date Time Temp Pulse Resp B/P B/P Pulse O2 O2 Flow FiO2 Mean Ox Delivery Rate 08/13 0648 97.7 78 18 114/76 95 Room Air 08/12 2206 98.5 91 20 110/80 93 08/12 1400 97.9 89 20 130/75 96 Intake & Output 08/13 1600 08/13 0800 08/13 0000 Intake Total 400 650 Output Total 300 200 Balance 100 450 Intake, IV 280 200 Intake, Oral 120 450 Number 4 1 Bowel Movements Output, Urine 300 200 Physical Exam General Appearance: Alert, Oriented X3, Cooperative, No Acute Distress Other Physical Findings: Cardiovascular: Regular rate, normal S1, normal S2 Lungs: Clear to auscultation, normal air movement Neuro: Grossly intact Extremity: Left foot has dressing on, particularly over left fourth toe, which was neither soaked nor tender to light touch Current Medications: Current Medications Sig/Esteban Start time Last Medication Dose Route Stop Time Status Admin Acetaminophen 650 MG Q6P PRN 08/05 0200 AC 08/06 PO 0056 Albuterol Sulfate 2 PUF Q4P PRN 08/05 0200 AC INH Atorvastatin Calcium 40 MG 1700 / 1700 AC 08/12 PO 1901 Budesonide/ 2 PUF BID / 1000 AC Formoterol Fumarate INH Bupropion HCl 450 MG DAILY 08/05 1000 AC 08/12 PO 0927 Docusate Sodium 100 MG DAILY 08/06 1031 AC PO Enoxaparin Sodium 40 MG 2200 08/11 2200 AC 08/12 SC 2108 Fish Oil 1,050 MG DAILY / 1000 AC 08/12 PO 0926 Gabapentin 300 MG BID / 1000 AC 08/12 PO 210 Heparin Sodium 0 .STK-MED ONE 08/12 1612 DC (Porcine) IV Hydromorphone HCl 2 MG BID PRN 08/06 1030 AC 08/13 PO 0011 Ibuprofen 600 MG Q6P PRN 08/09 0900 AC 08/13 PO 0801 Lamotrigine 200 MG AT BEDTIME 08/05 2200 AC 08/12 PO 2108 Lamotrigine 100 MG QAM 08/05 1000 AC 08/12 PO 0926 Lidocaine 0 .STK-MED ONE 08/12 1612 DC .ROUTE Loperamide HCl 2 MG .STK-MED ONE 08/12 1921 DC PO 08/12 192 Loperamide HCl 2 MG Q6P PRN 08/08 0930 AC 08/13 PO 0127 Melatonin 5 MG AT BEDTIME 08/09 2200 AC 08/12 PO 2108 Multivitamins 1 TAB DAILY 08/05 1000 AC 08/12 Therapeutic PO 0927 Ondansetron HCl 4 MG Q6P PRN 08/06 1030 AC PO Patient Medication 1 ED .STK-MED ONE 08/12 1329 DC Teaching ED 08/12 1330 Polyethylene Glycol 17 GM DAILY 08/06 1031 AC PO Pregabalin 150 MG BID 08/05 1000 DC 08/12 PO 0926 Risperidone 1 MG QPM 08/05 2200 AC 08/12 PO 2108 Senna/Docusate Sodium 2 TAB DAILY 08/06 1031 AC 08/08 PO 0907 Vancomycin HCl 1,250 MG ONCE ONE 08/12 1830 DC 08/12 Sodium Chloride 250 ML IV 08/12 192 1901 Vancomycin HCl 1,250 MG ONCE ONE 08/12 1815 CAN IV 08/12 1816 Vancomycin HCl 1,250 MG Q12H 08/07 1400 AC 08/13 Sodium Chloride 250 ML IV 0247 Last 24 Hrs of Lab/Matthew Results Last 24 Hrs of Labs/Mics: Laboratory Tests 08/12/16 1800: ESR Westergren 52 H Assessment/Plan Assessment: 61-year-old woman with significant past medical history of COPD, anxiety/ depression, hyperlipidemia, diverticulosis/IBS status post hemicolectomy, idiopathic neuropathy with recurrent osteomyelitis, status post right transmetatarsal amputation, left second toe amputation, previously grown methicillin sensitive staph aureus and Pseudomonas from previous OR cultures, multiple previous soft tissue infections, followed by Dr. Patel and at the wound care center, complex regional pain syndrome, presented to the hospital emergency department with fever and left foot/fourth toe erythema. #Left fourth toe cellulitis, possible osteomyelitis, s/p surgery Hospital day 6 Mary has been stable, saturating 98% on RA. POD 5 open partial ray resection of left toe seconday to gangrene and POD 4 of delayed primary closure of open surgical wound. Mary's gross specimen growing MRSA, currently on vancomycin. Awaiting bone biopsy results. -Bone biopsy was positive for acute osteomyelitis per pathology report yesterday. So the patient got a PICC line inserted and 4 weeks course of IV antibiotics Vancomycin in total. (last dose being on September 04, 2016) -She has to get weekly CBC, ESR, BUN/Creatinine and Vancomycin trough level. -She is leaving to [facility] later in the afternoon. -Appreciate ID consult. -From a vascular standpoint, no acute intervention required or additional anticoagulation or antiplatelet. Recomending to follow-up as outpatient with Dr. Osullivan. -Appreciate plastic surgery consult. #Morbid obesity -BMI 43.3 kg/m3 -Patient was counseled about lifestyle modification, but this has to be on a routine visit as well, and not just when she is admitted for a serious condition like osteomyelitis. -Further management planned as an out patient # Continue home meds of bupropion, risperidone, gabapentin, Lyrica. Pain: on home dose of Dilaudid. (h/o complex regional pain syndrome) DVT prophylaxis: lovenox PT recomending STR full code Problem List: 1. Foot osteomyelitis, left Pain Ratin Pain Location: LEG AND LOW BACK, when present is 10/10 , and 0/10 most of the times Pain Goal: Pain 4 or less Pain Plan: prn Tomorrow's Labs & Rationales: - LUIS CAT MD 08/13/16 0727: Attending MD Review Statement Attending Statement Attending MD Statement: examined this patient, discuss w/resident/PA/[employer], agreed w/resident/PA/[employer], reviewed EMR data (avail), discussed with nursing, discussed with case mgmt, amended to note Attending Assessment/Plan: Patient seen and examined. Resting comfortably and not in acute distress. Reports some discomfort in the foot controlled on current regimen. She reports loose bowel movements but states that this is chronic. She reports taking Imodium at home. Pathology report returned positive yesterday. If you have for persistent osteomyelitis despite surgical intervention she will be discharged on long-term antibiotic therapy. A PICC line was placed yesterday and she will continue vancomycin. On examination she looks well. She is not in any distress. She has intact dressing over the foot. Recommendations: -Follow-up with the ID service regarding duration of antibiotic therapy after with patient may be discharged [facility] facility for short-term rehabilitation. -She will be following up with the podiatry service next week. -She reports tolerable pain control with a combination of her home dose of Dilaudid and Motrin as needed.. She reports no relief with use of Tylenol. Discontinue Tylenol from her medication list. -She reports chronic diarrhea for which she takes Imodium at home. She takes a dose after every loose bowel movement for a maximum of 8 mg per day.
[2016-08-13] MEDS ORDERED: VANCO 1.251.25 GM/25 IV ×2 (07:35→13:23)
--- NOTE | 2016-08-13 11:55 | PN- Infect Dx ---
Subjective Subjective: Afebrile. She continues to report occasional pain in the left foot as well as the right foot. Objective Last 24 Hrs of Vital Signs/I&O Vital Signs Date Time Temp Pulse Resp B/P B/P Pulse O2 O2 Flow FiO2 Mean Ox Delivery Rate 08/13 0934 Room Air 08/13 0648 97.7 78 18 114/76 95 Room Air 08/12 2206 98.5 91 20 110/80 93 08/12 1400 97.9 89 20 130/75 96 Intake & Output 08/13 1600 08/13 0800 08/13 0000 Intake Total 400 650 Output Total 300 200 Balance 100 450 Intake, IV 280 200 Intake, Oral 120 450 Number 4 1 Bowel Movements Output, Urine 300 200 Physical Exam Other Physical Findings: She appears comfortable in no acute distress Extremities left foot dressing intact; PICC in the right upper extremity in place Results Last 24 Hours of Lab Results: Laboratory Tests 08/12 1800 Hematology ESR Westergren (0 - 20 MM) 52 H Left foot bone biopsy August 10 reveals features consistent with acute osteomyelitis Last 24 Hours of Matthew Results: No new cultures Assessment/Plan Impression: Stable status post revisional partial fourth ray resection of the left foot and closure of the wound 6 days ago for gangrene and osteomyelitis of the left fourth toe secondary to MRSA with temperatures and white blood cell count remaining normal on Vancomycin. The biopsy of the bone from the left metatarsal was positive for osteomyelitis; therefore she will require a four- week course of IV antibiotics for residual osteomyelitis. A PICC was placed yesterday and she is scheduled for discharge today. Suggestion: 1. Continue Vancomycin for 4 weeks from her most recent debridement (until September 04) 2. Weekly CBC, ESR, BUN/creatinine and Vancomycin trough level
[2016-08-13] MEDS ORDERED: LOPERAMIDE2 M2 PO (12:19)
[2016-08-13] MEDS ORDERED: IBUPROFEN600 M1 PO (12:19)
[2016-08-13] MEDS ORDERED: MELATONIN5 M7 PO (12:20)
[2016-08-13 12:49] VITALS: BP 114/76
== END 2016-08-13 14:38 | DRG 854 ==
LOC: ERH 19:50 → ERHI 23:18 → 2NB 23:18 → ERHI 08-05 07:46 → ENRESERV 08-05 15:08 → 2NB 08-05 15:09 → ENPENDDIS 08-13 08:40 → 2NB 08-13 14:38
PROVIDERS: Emergency Medicine; Internal Medicine; Internal Medicine Cardiovascular Disease; ADMIT Internal Medicine
PROC: 0Y6N0ZD Detachment at Left Foot, Partial 4th Ray, Open Approach (ICD-10-PCS; principal; 2016-08-05)
PROC: 0J9R0ZZ Drainage of Left Foot Subcutaneous Tissue and Fascia, Open Approach (ICD-10-PCS; principal; 2016-08-05)
PROC: 0JBR0ZZ Excision of Left Foot Subcutaneous Tissue and Fascia, Open Approach (ICD-10-PCS; principal; 2016-08-05)
PROC: 0JQR0ZZ Repair Left Foot Subcutaneous Tissue and Fascia, Open Approach (ICD-10-PCS; 2016-08-07)
PROC: 0J9R0ZZ Drainage of Left Foot Subcutaneous Tissue and Fascia, Open Approach (ICD-10-PCS; 2016-08-07)
PROC: 0JBR0ZZ Excision of Left Foot Subcutaneous Tissue and Fascia, Open Approach (ICD-10-PCS; 2016-08-07)
PROC: 0Y6N0ZD Detachment at Left Foot, Partial 4th Ray, Open Approach (ICD-10-PCS; 2016-08-07)
PROC: B214YZZ Fluoroscopy of Right Heart using Other Contrast (ICD-10-PCS; 2016-08-12)
PROC: 02H633Z Insertion of Infusion Device into Right Atrium, Percutaneous Approach (ICD-10-PCS; 2016-08-12)
DX: A41.9 Sepsis, unspecified organism (principal); I96 Gangrene, not elsewhere classified; E11.42 Type 2 diabetes mellitus with diabetic polyneuropathy; M86.172 Other acute osteomyelitis, left ankle and foot; Z68.41 Body mass index [BMI] 40.0-44.9, adult; L97.529 Non-pressure chronic ulcer of other part of left foot with unspecified severity; E66.01 Morbid (severe) obesity due to excess calories; G60.9 Hereditary and idiopathic neuropathy, unspecified; J44.9 Chronic obstructive pulmonary disease, unspecified; F41.8 Other specified anxiety disorders; E78.5 Hyperlipidemia, unspecified; K57.90 Diverticulosis of intestine, part unspecified, without perforation or abscess without bleeding
CPT/HCPCS: 2NBSP; 87070; 87075; 87184; ERO; 36415; 73630-LT; 77001; 81001; 82436; 87040; 87086; 87147; 88305; 88307; 93005; 93010; 93925; 96374; 97110-GO; 97112-GO; 97116-GO; 97162-GP; 97530-GO; C1769; J0131; J0696; J1642; J1644; J1650; J2001; J2405; J3101; J3370; J3490; J7040